=== PATIENT | male | born 1955 | race Caucasian/White ===

== ENCOUNTER → 2017-06-29 16:09 | Outpatient (CLI) | payer MEDICAID, SELFPAY ==
--- NOTE | 2017-06-29 16:16 | RAD_ITS ---
STUDY: X-RAY - RIGHT HAND REASON FOR EXAM: Male, 61 years old. Pain TECHNIQUE: 3 view(s) of the hand. COMPARISON: None. FINDINGS: Normal radiocarpal articulation. Normal distal radioulnar joint. Normal visualized carpal bones. Normal carpal articulations Normal carpometacarpal articulation of the thumb. Normal second through fifth carpometacarpal joints. Mild degenerative cystic changes at the head of the second and third metacarpi. Normal metacarpophalangeal joint of the thumb. Normal interphalangeal joint of the thumb. Normal proximal and distal phalanges of the thumb. Normal metacarpophalangeal joints of the second through fifth fingers. Normal proximal and distal interphalangeal joints of the second through fifth fingers. Normal phalanges of the second through fifth fingers. Soft tissue swelling of the digits. RAD/Hand Min 3 Views IMPRESSION: No acute bony pathology of the hand. Electronically Signed: Yrn Araiza DO at 23:41 EST Tel [phone], Service support ,
--- NOTE | 2017-06-29 16:16 | RAD_ITS ---
STUDY: X-RAY - LEFT HAND REASON FOR EXAM: Male, 61 years old. Pain TECHNIQUE: 3 view(s) of the hand. COMPARISON: None. FINDINGS: Normal radiocarpal articulation. Normal distal radioulnar joint. Normal visualized carpal bones. Normal carpal articulations Normal carpometacarpal articulation of the thumb. Normal second through fifth carpometacarpal joints. Normal metacarpi. Normal metacarpophalangeal joint of the thumb. Normal interphalangeal joint of the thumb. Normal proximal and distal phalanges of the thumb. Normal metacarpophalangeal joints of the second through fifth fingers. Normal proximal and distal interphalangeal joints of the second through fifth fingers. Normal phalanges of the second through fifth fingers. Mild soft tissue edema of the second and third fingers. RAD/Hand Min 3 Views IMPRESSION: No acute bony pathology of the hand. Electronically Signed: Yrn Araiza DO at 23:14 EST Tel [phone], Service support ,
== END ==
PROVIDERS: Family Provider Family Medicine; PCP Family Medicine; Visit Provider Family Medicine
DX: M79.645 Pain in left finger(s) (principal); M79.644 Pain in right finger(s)
CPT/HCPCS: 73130

== ENCOUNTER → 2017-07-14 10:14 | Outpatient (CLI) | payer MEDICAID, SELFPAY ==
[2017-07-14 12:36] LABS: Absolute Lymphocyte Count 2.12 X10^3/ul (0.83-4.51); Basophil# 0.04 X10^3/uL; Basophil% 0.7 % (0-1); Eosinophil# 0.15 X10^3/uL; Eosinophils% 2.6 % (0-5); Hemoglobin 15.8 g/dl (13.0-16.5); Lymphocyte # 2.12 X10^3/ul (4.0); Lymphocyte % 36.4 % (19-41); Mean Corp Hgb Conc 32.9 g/gl (32-36); Mean Corpuscular Hgb 32.1 pg (27.0-32.0); Mean Corpuscular Volume 97.6 fL (80-94); Mean Platelet Vol. 10.9 fl (6.2-12.0); Monocyte# 0.52 X10^3/uL; Monocyte% 8.9 % (0-10); Neutrophil # 2.98 X10^3/uL (2.7-7.7); Neutrophil % 51.2 % (47-70); Platelet Count 231 K/mm3 (150-450); RBC Distribution Width CV 13.8 % (11.6-14.6); RBC Distribution Width SD 49.1 fl (35.1-43.9); Red Blood Count 4.92 M/mm3 (4.6-6.2); White Blood Count 5.8 K/mm3 (4.4-11.0)
[2017-07-14 12:37] LABS: POSITIVE COUNT NO; POSITIVE DIFFERENTIAL NO; POSITIVE MORPHOLOGY NO
[2017-07-14 12:59] LABS: Vitamin B12 1736 pg/mL (211-911)
[2017-07-14 13:02] LABS: Erythrocyte Sedimentation Rate 13 mm/hr (0-20)
[2017-07-14 13:44] LABS: ALB/GLOB Ratio 0.8 RATIO (0.9-2.4); AST(SGOT) 88 U/L (15-37); Alanine Aminotransfer ALT/SGPT 113 U/L (16-61); Albumin, Serum 3.6 g/dL (3.2-5.0); Alkaline Phosphatase 89 U/L (45-117); Anion Gap 7 (5-15); BUN 10 mg/dL (7-18); BUN/Creat Ratio 9.4 RATIO (10-20); CRP < 2.90 mg/L (0.0-3.0); Calcium,Total 9.1 mg/dL (8.5-10.1); Chloride 99 mmol/L (98-107); Cholesterol 174 mg/dL (200); Creatinine, Serum 1.06 mg/dL (0.70-1.30); EST Glomerular Filtration Rate 75 mL/min (>60); Est Glom Filt Rate - Afr Amer 91 mL/min (>60); Globulin 4.3 g/dL (2.2-4.2); Glucose 74 mg/dL (74-106); High Density Lipoprotein 40 mg/dL; Potassium 3.9 mmol/L (3.5-5.1); Protein, Total 7.9 g/dL (6.4-8.2); Sodium Level 135 mmol/L (136-145); T4 Free Direct 0.17 ng/dL (0.76-1.46); Triglycerides 155 mg/dL; Very Low Density Lipoprotein 31 mg/dL (5-40)
[2017-07-18 08:46] LABS: ANTINUCLEAR ANTIBODIES DIRECT Negative (Negative)
[2017-07-20 10:28] LABS: Anti-Thyroglobulin AB 1553.9 IU/mL (0.0-0.9); Thyroglobulin RIA 6.6 ng/mL (.); Thyroid Peroxidase AB > 600 IU/mL (0-34); Vitamin B1, Thiamine 198.5 nmol/L (66.5-200.0)
== END ==
PROVIDERS: Family Provider Family Medicine; PCP Family Medicine; Visit Provider Family Medicine
DX: J44.9 Chronic obstructive pulmonary disease, unspecified (principal); K21.9 Gastro-esophageal reflux disease without esophagitis; E03.9 Hypothyroidism, unspecified; Z13.220 Encounter for screening for lipoid disorders; G56.03 Carpal tunnel syndrome, bilateral upper limbs; M21.839 Other specified acquired deformities of unspecified forearm
CPT/HCPCS: 80053; 80061; 82607; 82746; 84425; 84432; 84439; 84443; 85025; 85652; 86038; 86140; 86376; 86431; 86800

== ENCOUNTER → 2017-07-28 13:56 | Outpatient (CLI) | payer MEDICAID, SELFPAY ==
[2017-08-03 03:07] LABS: Comment 1a (.)
[2017-08-03 11:57] LABS: HCV log 10 6.617 (.); Hepatitis C Genotype 1a
== END ==
PROVIDERS: Family Provider Family Medicine; PCP Family Medicine; Visit Provider Family Medicine
DX: B18.2 Chronic viral hepatitis C (principal)
CPT/HCPCS: 36415; 87522; 87902

== ENCOUNTER → 2017-09-15 13:35 | Outpatient (CLI) | payer MEDICAID, SELFPAY ==
--- NOTE | 2017-09-15 13:36 | CT_ITS ---
STUDY: CT SOFT TISSUE NECK WITH CONTRAST REASON FOR EXAM: Male, 62 years old. NECK MASS, THROAT IRRITATON. RADIATION DOSAGE (If Supplied By Facility): CTDIvol = ( 16.74 ) mGy, DLP = ( 434.57 ) mGycm TECHNIQUE: The patient was scanned in a multi-detector CT scanner. High resolution transaxial imaging was performed following intravenous administration of 75 ml of Isovue 370 contrast material. Sagittal and coronal images were reconstructed. Individualized dose optimization techniques were used for this CT. COMPARISON: None. FINDINGS: Normal bilateral parotid glands. Normal bilateral chief nurse executive spaces. Normal bilateral parapharyngeal spaces. Normal bilateral carotid spaces. Normal bilateral sublingual and submandibular glands and spaces. Normal visualized nasopharynx. Normal retropharyngeal space. Normal perivertebral space. Normal visualized bilateral faucial tonsils. The visualized tongue, tongue base and oropharynx are normal. The visualized cervical lymph nodes (levels I-) are within normal size limits, and maintain normal morphology. There is no demonstrated solid or cystic mass lesion. There is no abnormal contrast enhancement. Normal epiglottis, bilateral vallecula and hypopharynx. The pre-epiglottic and paraglottic adipose spaces are normal. Normal visualized bilateral piriform sinuses, aryepiglottic folds, vocal cords, and arytenoid-cricoid articulations. Normal subglottic trachea. Normal bilateral lobes of the thyroid gland. Normal visualized pulmonary apices. Normal visualized paranasal sinuses. Normal visualized cervical spine. CT/Soft Tissue Neck WITH Contrast IMPRESSION: Normal enhanced CT examination of the soft tissues of the neck. Electronically Signed: Aaron Croft MD at 9:54 EDT Tel , Service support ,
[2017-09-15 14:01] LABS: CREATININE FINGERSTICK 0.8 mg/dL (0.70-1.30); EGFR FINGERSTICK > 60.0000 mL/min (>60)
== END ==
PROVIDERS: Family Provider Family Medicine; PCP Family Medicine; Visit Provider Family Medicine
DX: J38.7 Other diseases of larynx (principal)
CPT/HCPCS: 70491; Q9967

== ENCOUNTER → 2017-09-16 13:55 | Outpatient (CLI) | payer MEDICAID, SELFPAY ==
--- NOTE | 2017-09-16 13:58 | RAD_ITS ---
STUDY: X-RAY CHEST REASON FOR EXAM: Male, 62 years old. COPD TECHNIQUE: PA and lateral views of the chest. COMPARISON: None. FINDINGS: Normal lung expansion. Peripheral vessel attenuation in the upper lung zones consistent with a component of emphysematous changes. Negative for consolidation, focal atelectasis, pulmonary masses or nodules. Negative for pleural effusion. Normal size heart. Normal mediastinum and talha. Normal visualized pulmonary arteries. Mild elongation of the thoracic aorta. There are diffuse degenerative changes of the visualized thoracic spine. Normal visualized ribs, clavicles, and shoulders. There is no demonstrated abnormality of the visualized soft tissue structures of the upper abdomen. RAD/Chest PA and Lateral IMPRESSION: Upper lung zone vessel attenuation consistent with emphysematous changes. Negative for gross hyperexpansion. Negative for consolidation, atelectasis, pleural effusion, masses or cardiomegaly. Electronically Signed: Berenice Hand MD at 21:59 EDT , Service support ,
[2017-09-16 16:07] LABS: ALB/GLOB Ratio 0.9 RATIO (0.9-2.4); AST(SGOT) 70 U/L (15-37); Alanine Aminotransfer ALT/SGPT 126 U/L (16-61); Albumin, Serum 3.6 g/dL (3.2-5.0); Alkaline Phosphatase 87 U/L (45-117); Anion Gap 7 (5-15); BUN 12 mg/dL (7-18); BUN/Creat Ratio 11.8 RATIO (10-20); Calcium,Total 8.8 mg/dL (8.5-10.1); Chloride 103 mmol/L (98-107); Creatinine, Serum 1.02 mg/dL (0.70-1.30); EST Glomerular Filtration Rate 79 mL/min (>60); Est Glom Filt Rate - Afr Amer 95 mL/min (>60); Globulin 4.2 g/dL (2.2-4.2); Glucose 104 mg/dL (74-106); Protein, Total 7.8 g/dL (6.4-8.2); Sodium Level 138 mmol/L (136-145)
[2017-09-16 16:32] LABS: BNP,B-Type NATRIURETIC PEPTIDE < 2.0 pg/mL (0-100)
== END ==
PROVIDERS: Family Provider Family Medicine; PCP Family Medicine; Visit Provider Family Medicine
DX: J44.9 Chronic obstructive pulmonary disease, unspecified (principal)
CPT/HCPCS: 36415; 71046; 80053; 83880

== ENCOUNTER → 2017-10-20 07:37 | Outpatient (CLI) | payer MEDICAID, SELFPAY ==
--- NOTE | 2017-10-20 10:17 | NEURO ---
NCS and/or EMG Patient Report Ordering Doctor: Lino Ugarte DATE OF SERVICE: 10/20/17 Is a bilateral upper extremity nerve conduction study and a left upper extremity EMG performed on this 62-year-old male with severe arthritis in his hands, as well as hand pain worse on the left for 5 years. He works as a [employer]. He describes difficulty holding items in his left hand. He has no neck pain, and is healthy otherwise without a history of diabetes or alcohol use. Bilateral upper extremity sensory and motor nerve conduction studies are performed. The median motor and sensory distal latencies bilaterally are prolonged, moderate on the right side, severe on the left. The left amplitudes are reduced in the bilateral conduction velocities are reduced. The ulnar motor and sensory and radial sensory responses are normal. Median and ulnar F waves were also obtained, with the left median F wave severely prolonged. Left upper extremity needle electromyography was performed. Muscles evaluated included the first dorsal interosseous, abductor pollicis brevis, brachioradialis, biceps, triceps and deltoid muscles. 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 All other C8 muscles were normal. Impression abnormal electrophysiologic study of the bilateral upper extremities consistent with severe carpal tunnel on the left, moderate on the right.
== END ==
PROVIDERS: Family Provider Family Medicine; PCP Family Medicine; Visit Provider Family Medicine
DX: G56.03 Carpal tunnel syndrome, bilateral upper limbs (principal); R06.02 Shortness of breath
CPT/HCPCS: 95886; 95911

== ENCOUNTER → 2018-03-30 14:49 | Outpatient (CLI) | payer MEDICAID, SELFPAY ==
[2018-03-30 15:40] LABS: Absolute Lymphocyte Count 1.75 X10^3/ul (0.83-4.51); Absolute Neutrophil Count 3.7 X10^3/uL (2.0-7.7); Basophil# 0.03 X10^3/uL; Basophil% 0.5 % (0-1); Eosinophils% 1.6 % (0-5); Hematocrit 43.5 % (40-54); Hemoglobin 14.8 g/dl (13.0-16.5); Lymphocyte # 1.75 X10^3/ul (4.0); Mean Platelet Vol. 10.5 fl (6.2-12.0); Monocyte# 0.67 X10^3/uL; Monocyte% 10.7 % (0-10); Neutrophil # 3.68 X10^3/uL (2.7-7.7); Platelet Count 211 K/mm3 (150-450); RBC Distribution Width CV 12.6 % (11.6-14.6); RBC Distribution Width SD 42.5 fl (35.1-43.9); Red Blood Count 4.63 M/mm3 (4.6-6.2); White Blood Count 6.2 K/mm3 (4.4-11.0)
[2018-03-30 15:43] LABS: POSITIVE COUNT NO; POSITIVE DIFFERENTIAL NO; POSITIVE MORPHOLOGY NO
[2018-03-30 16:18] LABS: ALB/GLOB Ratio 0.9 RATIO (0.9-2.4); AST(SGOT) 54 U/L (15-37); Alanine Aminotransfer ALT/SGPT 73 U/L (16-61); Albumin, Serum 3.5 g/dL (3.2-5.0); Alkaline Phosphatase 80 U/L (45-117); Anion Gap 7 (5-15); BUN 12 mg/dL (7-18); BUN/Creat Ratio 12.8 RATIO (10-20); Calcium,Total 8.8 mg/dL (8.5-10.1); Chloride 103 mmol/L (98-107); Creatinine, Serum 0.94 mg/dL (0.70-1.30); EST Glomerular Filtration Rate 87 mL/min (>60); Est Glom Filt Rate - Afr Amer 105 mL/min (>60); Globulin 3.8 g/dL (2.2-4.2); Glucose 92 mg/dL (74-106); Protein, Total 7.3 g/dL (6.4-8.2); Sodium Level 137 mmol/L (136-145); T4 Free Direct 0.48 ng/dL (0.76-1.46)
== END ==
PROVIDERS: Family Provider Family Medicine; PCP Family Medicine; Visit Provider Family Medicine
DX: J44.9 Chronic obstructive pulmonary disease, unspecified (principal); B18.2 Chronic viral hepatitis C; E03.8 Other specified hypothyroidism
CPT/HCPCS: 36415; 80053; 84439; 84443; 85025

== ENCOUNTER 2018-09-21 09:26 | Day surgery (SDC) | payer MEDICAID, SELFPAY ==
[2018-09-13 12:45] VITALS: BMI 27.5
[2018-09-21] VITALS (8 sets, daily range): BP systolic 90–138; BP diastolic 67–84; PULSE 49–66; RESP 16–18; TEMP 36.1–36.3; O2SAT 96–100; BMI 25.8
--- NOTE | 2018-09-21 13:09 | DCINST_ITS ---
Discharge Diet: No Restrictions - leave dressing on until seen in office in 2 weeks with jose whitehead, call with increased pain, numbness, or if other issues arise, keep dressing clean and dry, call with concerns Discharge Activity: May Not Drive May shower in (days): 1 Ice area for (Minutes): 20 - Every hour while awake. Weight Bearing Status: Weight bearing as tolerated Keep extremity elevated above heart level: Operative Extremity Call your doctor if your incision/area has: Continuous Slow Oozing, Sudden Increased Bleeding, Increased Pain/ Swelling, Increased Redness, Foul Smelling Discharge Call your doctor if you observe: Fever of 101 or Higher, Coldness, Increased Pain, Numbness or Tingling, Change in Color, Calf discomfort Allergies/Adverse Reactions: Allergies No Known Allergies Allergy (Verified 09/06/18 14:02) Medications to take at Discharge albuterol sulfate HFA 90 mcg/actuation aerosol inhaler 2 puff INHALATION Q4H PRN 01/13/18 fluticasone furoate 100 mcg-vilanterol 25 mcg/dose inhalation powder 1 inh INHALATION DAILY 01/13/18 fluticasone propionate 50 mcg/actuation nasal spray,suspension 1 spray INTR ANASAL DAILY 01/13/18 levothyroxine 125 mcg capsule 125 mcg PO DAILY 01/13/18 omeprazole 40 mg capsule,delayed release 40 mg PO DAILY 01/13/18 tiotropium bromide 2.5 mcg/actuation mist for inhalation 2 puff INHALATION DAILY 01/13/18 trazodone 50 mg tablet 50 mg PO QHS PRN 07/18/18 divalproex 500 mg tablet,delayed release 500 mg PO QHS tab 09/06/18 Aspirin [Aspir-Low] 81 mg PO DAILY 09/16/18 Budesonide/Formoterol 160/4.5 [Symbicort 160/4.5 Mcg Inhaler (SP)] 2 puff INHALATION BID 09/16/18 Primary Care Physician: Lino Ugarte MD [Primary Care Provider] - Test Results: Test results from this visit will be discussed in further detail at your follow- up appointment, if applicable. Please Follow Up With: Mavis Landaverde, - [phone]
--- NOTE | 2018-09-21 13:09 | PCM.OPRPT ---
Report of Operation Date of Procedure: 09/21/18 Pre-Operative Diagnosis: bilateral carpal tunnel syndrome Post-Operative Diagnosis: same Surgery/Procedure Performed:: left carpal tunnel release, right carpal tunnel injection medical office manager: Gm Atkinson Type of Anesthesia:: BlockJulieth Anesthesiologist: Sky Guerrero Fluids Replaced: 400 cc lr Description of Procedure: Preoperative note Patient is a 63 yo male patient with nerve conduction study confirming carpal tunnel syndrome. Patient failed conservative treatment for bilateral carpal tunnel elected proceed with left carpal tunnel release right carpal tunnel injection. Risks benefits and alternatives surgery discussed with patient. Risks including but not limited to blood loss, blood clot, infection, neurovascular injury, failure procedure, loss of life and loss of limb. Patient is aware like proceed with left carpal tunnel release. Operative note Patient seen and examined preoperative holding area. Left hand was marked. History and physical and consent reviewed. Patient was brought to the operating room placed supine on the operating table. Sign in, anesthesia, antibiotics were administered. Left upper extremity was prepped and draped after [place] block was initiated. All bony prominences well-padded SCDs placed on bilateral lower extremities. We marked out our incisions for our carpal tunnel release at the intersection of Gladys's line in the fourth ray flexed. We extended about a centimeter and a half. Timeout was performed. We then checked ensure that the Julieth block was working with pickups which it was. We then used a 15 blade to make a skin incision. We then dissected down tenotomy syllable of the transverse carpal ligament. We then used a new 15 blade cut through the transverse carpal ligament down to the level of the median nerve. We then further released the median nerve the combination of the 15 blade and tenotomies. The nerve was grayish in color and adherent to the transverse carpal ligament volarly. We released the transverse carpal ligament distally to the fat pad and then proximally under standard technique. We then palpated to ensure that we released all of the transverse carpal ligament which we did. We irrigated the incision with copious amounts of sterile saline. All bleeders were coagulated. The incision was closed with interrupted 4-0 nylon stitches. Tourniquet was deflated for total working time of 10 minutes. Patient tolerated procedure well there were no complications. We then in standard technique using sterile technique injected the right carpal tunnel with 1 cc bupivacaine 1/2 cc of Kenalog 40. Patient transferred to recovery room in stable condition. Postoperative note Leave dressing clean dry and intact Follow-up in 2 weeks Call with concerns This note was generated with [employer] dictation software. It may contain incorrect words, spelling, and punctuation that were not noted in checking the note before signing.
[2018-09-21] MEDS: Cefazolin 2 GM in 0.9% Normal Saline 100 ML IV (13:26)
[2018-09-21] MEDS: Ropivacaine 0.5% 30 ML Vial (14:03)
[2018-09-21] MEDS: Triamcinolone Acetonide 40 MG/ML Vial (14:03)
[2018-09-21] MEDS: Mupirocin Ointment 22gm Tube 1 APPLIC (14:04)
[2018-09-21] MEDS: HYDROcodone Bitartrate/Apap 5/325 Tablet PO (15:07)
== END 2018-09-21 15:40 | disposition home or self-care (01) ==
LOC: SDC 09:27 → AC 09:28
PROVIDERS: Family Provider Family Medicine; PCP Family Medicine; Referring Provider Orthopaedic Surgery; Visit Provider Orthopaedic Surgery
PROC: (CPT 64721; principal; 2018-09-21 10:45)
DX: G56.03 Carpal tunnel syndrome, bilateral upper limbs (principal); K21.9 Gastro-esophageal reflux disease without esophagitis; F32.9 Major depressive disorder, single episode, unspecified; F41.9 Anxiety disorder, unspecified; J44.9 Chronic obstructive pulmonary disease, unspecified; E03.9 Hypothyroidism, unspecified; E06.3 Autoimmune thyroiditis; B18.2 Chronic viral hepatitis C; F17.200 Nicotine dependence, unspecified, uncomplicated; Z79.82 Long term (current) use of aspirin; Z79.899 Other long term (current) drug therapy
CPT/HCPCS: 20526; 64721; J7120

== ENCOUNTER 2019-02-04 19:50 | Emergency (ER) | payer MEDICAID, SELFPAY ==
[2018-09-21 09:58] VITALS: BMI 25.8
[2019-02-04 19:50] VITALS: BP 153/92; PULSE 90; RESP 18; TEMP 36.4; O2SAT 97; BMI 26.3
--- NOTE | 2019-02-04 20:37 | ED.VISSUMM ---
- ER Visit Summary Date of Service: 02/04/19 Chief Complaint: Right lower leg laceration secondary to her grinding wheel History of Present Illness: The patient is a 63 M history of COPD and hypothyroidism. Patient states she was using a grinding wheel at home it came off struck him in his right lower leg causing a laceration. This occurred within the last hour. No other injuries. Able to walk. States his tetanus is up-to-date in the last 5 years or so. Physical Examination: Vital signs are stable afebrile. HEENT exam unremarkable. Lungs few scattered wheezes consistent with a COPD. No distress. Heart regular rhythm no murmur. Patient moving all 4 extremities. Neurovascularly intact. His right mid lower leg over the tibia there is a significant 4 inch laceration that may have bone involvement. Distally the right ankle, foot are neurovascular intact with DP pulse. Normal touch sensation. Normal motor strength and range of motion. Test Results: Right tib-fib x-ray shows no acute abnormality. No fracture. The radiologist questioned the foreign body to think it was soft tissue swelling and bandages. Emergency Department Course and Treatment: Laceration repair right lower leg of 7 cm. Let applied to the wound. Cleaned using Shur-Clens, copiously irrigated wash and explored. Locally anesthetized with lidocaine. Closed using 4-0 Ethilon simple interrupted sutures. 7 sutures were placed. Proper hemostasis wound closure obtained. Patient was instructed on wound care and return if any signs of infection. Patient tolerated procedure well. She is I did explore the entire wound and felt no signs of foreign body. There were tiny bubbles of sand from the grinding wheel in the tissue I does make there is out as I could. Will be placed on an antibiotic to try to prevent infection. I discussed this with the patient. Treatment Plan: Ice and elevate the wound. Suture removal 10 days. Keflex 500 3 times daily for 5 days. Return for any signs of infection. Disposition: Discharge Impression: Acute right lower leg laceration with ER repair 7 cm This note was generated with [employer] dictation software. It may contain incorrect words, spelling, and punctuation that were not noted in review of the chart prior to signing ED Disposition - Plan for ED Patient: Referrals: Elis Hernandes, EQUAL OPPORTUNITY DIRECTOR-C [Primary Care Provider] -
[2019-02-04] MEDS: Lidocaine/Epi/Tetracaine 50 ML 1 APPLIC TOPICAL (21:19)
--- NOTE | 2019-02-04 21:25 | RAD_ITS ---
STUDY: X-RAY - RIGHT TIBIA AND FIBULA REASON FOR EXAM: Male, 63 years old. Laceration right anterior mid lower leg. TECHNIQUE: 2 view(s) of the tibia and fibula were obtained. COMPARISON: None. FINDINGS: No fracture or dislocation. Visualized joint spaces are well-maintained. Bandage or packing projected over the anterior hernandez. Radiodensities in the anterior soft tissues measuring up to 4 mm, small foreign bodies versus topical iodine. RAD/Tibia & Fibula 2 Views IMPRESSION: 1. No osseous abnormality. 2. Small foreign bodies versus topical iodine in the anterior soft tissues. Has iodine been applied to this region? Electronically Signed: Janice Bustamante MD at 22:00 EDT Tel , Service support ,
--- NOTE | 2019-02-04 23:02 | ED.DEP ---
ED Disposition - Plan for ED Patient: Disposition: Home or Assisted Living Instructions: LACERATION, Extrem (Suture, Staple or Tape) Prescriptions: Cephalexin [Keflex] 500 mg PO Q8 #15 cap Prescription Printed Referrals: Elis Hernandes, MECHANICAL ENGINEERING SPECIALIST-C [Primary Care Provider] - 10 Day for suture removal Additional Instructions: Keep wound clean and dry. May shower but then dried off well. Apply antibiotic ointment daily. Watch for any signs of infection such as redness, pus, fever or streaks. Is seen return. Ice and elevate the wound to decrease pain and swelling. Tylenol Motrin for pain. Suture removal in 10 days. Keflex for 5 days a child with any type of infection since it was a deep dirty wound.
[2019-02-04 23:14] VITALS: BP 153/95; PULSE 76; RESP 20; O2SAT 97
== END 2019-02-04 23:15 | disposition home or self-care (01) ==
PROVIDERS: Emergency Provider Emergency Medicine; Family Provider Nurse Practitioner; PCP Nurse Practitioner
DX: S81.811A Laceration without foreign body, right lower leg, initial encounter (principal); W22.8XXA Striking against or struck by other objects, initial encounter; Y93.89 Activity, other specified; Y92.009 Unspecified place in unspecified non-institutional (private) residence as the place of occurrence of the external cause; J44.9 Chronic obstructive pulmonary disease, unspecified; E03.9 Hypothyroidism, unspecified; Z72.0 Tobacco use
CPT/HCPCS: 12002; 73590; 99283

== ENCOUNTER 2019-02-14 23:25 | Emergency (ER) | payer MEDICAID, SELFPAY ==
[2019-02-14 23:26] VITALS: BP 158/87; PULSE 94; RESP 18; TEMP 36.7; O2SAT 95; BMI 25.3
--- NOTE | 2019-02-15 01:25 | ED.VIS.GEN ---
History of Present Illness Chief Complaint: Wound Check Narrative: This patient is a 63-year-old male who presents for a wound check. He had a laceration 10 days ago from a cutting wheel on a contour grinder. This was seen in the emergency department and sutured. He is followed up with his primary care physician today and had his sutures removed. Initially the wound was held intact but after he began walking it pulled apart. He is noticed a small amount of drainage from the wound but is currently on antibiotics, Keflex and Bactrim. No systemic symptoms. No fevers. He is not diabetic. Past Medical History - Allergies and Home Meds Allergies/Adverse Reactions: Allergies No Known Allergies Allergy (Verified 02/14/19 23:26) Primary Care Physician: Elis Hernandes NP-C [Primary Care Provider] - Past Medical History: - - GERD, hypothyroidism Smoking Status: Current every day smoker Review of Systems All systems negative except as indicated General: Denies: Fever Cardiovascular: Denies: Chest pain Respiratory: Denies: Dyspnea Gastrointestinal: Denies: Vomiting Skin: Reports: Wounds Physical Exam Vital Signs/Narrative: Vital Signs Temp Pulse Resp BP Pulse Ox 02/14/19 23:26 98.1 F 94 18 158/87 H 95 Inital Vital Signs reviewed: Yes General: Well nourished, Well developed Head: Normocephalic Eyes: EOMI ENT: Moist mucous membranes Neck: Supple Cardiovascular: Regular rate, Regular rhythm Respiratory: No distress Skin: - - Patient has an open wound of the right lower extremity, dehiscence of the laceration repair. There is slight wound edge erythema but no drainage no odor Neurological: Alert Psychological: Normal affect Diagnostic/Tx/Re-eval - Medical Decision Making Patient's wound was cleansed with sterile saline, tincture of benzoin applied and Steri-Strips. Patient will be referred to the wound clinic. He was advised to continue his current oral antibiotics. ED Disposition - Plan for ED Patient: Disposition: Home or Assisted Living Diagnosis: Wound dehiscence Referrals: Elis Hernandes NP-C [Primary Care Provider] - Clinic,Wound [None] - Additional Instructions: You were seen today for wound dehiscence. This means that your wound pulled open again. Steri-Strips were applied. Keep the wound clean and dry and covered. Follow-up with the wound clinic. Continue your current antibiotics but return for any new or worsening symptoms.
[2019-02-15 01:39] VITALS: BP 135/92; PULSE 82; O2SAT 96
--- NOTE | 2019-02-15 01:39 | ED.RN ---
Telfa applied along with a cling wrap around his left lower leg laceration area prior to discharge.
[2019-02-15 01:40] VITALS: BP 135/92; PULSE 82; O2SAT 96
== END 2019-02-15 01:41 | disposition home or self-care (01) ==
PROVIDERS: Emergency Provider Emergency Medicine; Family Provider Nurse Practitioner; PCP Nurse Practitioner
DX: T81.33XA Disruption of traumatic injury wound repair, initial encounter (principal); E03.9 Hypothyroidism, unspecified; K21.9 Gastro-esophageal reflux disease without esophagitis; F17.200 Nicotine dependence, unspecified, uncomplicated; Z79.82 Long term (current) use of aspirin; Z79.899 Other long term (current) drug therapy
CPT/HCPCS: 99282

== ENCOUNTER 2020-08-14 01:30 | Emergency (ER) | payer MEDICAID, SELFPAY ==
[2020-08-14 01:31] VITALS: PULSE 86; RESP 16; TEMP 35.9; O2SAT 99; BMI 27.8
--- NOTE | 2020-08-14 01:51 | CT_ITS ---
STUDY: CT ABDOMEN AND PELVIS WITHOUT CONTRAST REASON FOR EXAM: Male, 64 years old. Kidney Stone RADIATION DOSAGE (If Supplied By Facility): CTDIvol = ( 7.15 ) mGy, DLP = ( 378.85 ) mGycm TECHNIQUE: Transaxial images were obtained from the dome of the diaphragm to the symphysis pubis without oral contrast, and without intravenous contrast. Sagittal and coronal images were reconstructed. Individualized dose optimization techniques were used for this CT. COMPARISON: None. FINDINGS: Bilateral posterior dependent atelectasis otherwise normal lung bases. The visualized portions of the heart are within normal limits. Normal liver. Normal gallbladder and extrahepatic biliary system. Normal spleen. Normal pancreas. Normal bilateral adrenal glands. Normal right kidney. Normal left kidney. Decompressed stomach with possible minimal hiatal hernia. Normal small intestine. Normal colon. The appendix is visualized and appears normal. There is mild atherosclerotic calcification of the abdominal aorta, without a demonstrated aneurysm. Normal inferior vena cava. Normal retroperitoneum. Thickening of urinary bladder wall raising the concern of cystitis. Normal visualized prostate gland. Normal abdominal wall. There are diffuse degenerative changes of the visualized lumbar spine. CT/Abdomen/Pelvis without Cont IMPRESSION: Thickening of the wall of the urinary bladder raising the concern for cystitis. Correlation with urinalysis recommended. Unremarkable abdominal viscera. Possible minimal hiatal hernia. Electronically Signed: Kaylene Mayer MD at 2:51 EDT , Service support ,
--- NOTE | 2020-08-14 01:52 | ED.DCSUM_ITS ---
History of Present Illness Chief Complaint: Flank Pain Informant: Patient Narrative: She stated he has had intermittent left-sided flank and back pain for last 3 weeks. No history of AAA or kidney stone. Denies any blood in his urine or urinary symptoms. Sometimes this movement related. Sometimes is not. No home treatment. Current severity is moderate. Called his doctor who told him to come in for evaluation. No fevers or chills - Past Medical History (1) Chest pain Status: Acute (2) COPD (chronic obstructive pulmonary disease) Status: Chronic (3) Carpal tunnel syndrome on both sides Status: Chronic (4) GERD (gastroesophageal reflux disease) Status: Chronic (5) Johnathan's disease Status: Chronic (6) Hepatitis C Status: Chronic (7) Hypothyroid Status: Chronic (8) Suspected sleep apnea Status: Chronic (9) Tobacco abuse Status: Chronic Past Medical History - Allergies and Home Meds Allergies/Adverse Reactions: Allergies No Known Allergies Allergy (Verified 08/14/20 01:34) Primary Care Physician: Elis Hernandes DEALER SALES MANAGER, DEALER SALES MANAGER-C [Primary Care Provider] - Prior records reviewed: Yes Past Medical History: - Surgical History: - - Reviewed Smoking Status: Current every day smoker Drugs: None Review of Systems General: Denies: Chills, Fever, Sweats Eyes: Denies: Visual changes - bilaterally, Diplopia ENT: Denies: Rhinorrhea, Sore throat Cardiovascular: Denies: Chest pain, Palpitations Respiratory: Denies: Dyspnea, Cough, Dyspnea on exertion Gastrointestinal: Denies: Abdominal pain, Nausea, Vomiting, Diarrhea, Melena, Hematochezia Genitourinary: Denies: Dysuria, Hematuria, Frequency Musculoskeletal: Reports: Back pain. Denies: Extremity Pain Skin: Denies: Rash, Wounds Neurological: Denies: Headache, Weakness, Numbness Physical Exam Vital Signs/Narrative: Vital Signs Temp Pulse Resp Pulse Ox 08/14/20 01:31 96.6 F L 86 16 99 General: Well nourished, Well developed, No Acute Distress Head: Normocephalic, Atraumatic Eyes: Perrl, EOMI ENT: Moist mucous membranes, No rhinorrhea Neck: Supple, Nontender Cardiovascular: Regular rate, Regular rhythm, No murmurs Respiratory: No distress, CTA bilaterally, Chest nontender Abdomen: Soft, Nontender, Nondistended, Normal bowel sounds Back: Nontender, Normal Inspection, - - Tender to palpation left lower lumbar paraspinals and left flank mild decreased range of motion secondary pain. Extremities: Nontender, No edema Skin: Normal color, No rash Neurological: Alert, Oriented x3, Cranial nerves II-XII grossly intact, Normal Strength, Normal Sensation Psychological: Normal affect, Normal Mood Diagnostic/Tx/Re-eval - Medical Decision Making Patient given a dose of Toradol and IV fluids. Lab work and CT of the pelvis obtained.. Lab work shows a BMP that is normal. Urinalysis negative. CT and pelvis shows nothing acute. Mild thickening of the bladder wall only. No evidence of AAA or kidney stone. At this time I feel the patient can be discharged. I feel this is musculoskeletal related back pain. He will rest and ice take anti-inflammatories follow-up as an outpatient. Patient is in agreement ED Disposition - Plan for ED Patient: Disposition: Home or Assisted Living Diagnosis: Back pain, lumbosacral Instructions: ED Back Pain (Acute or Chronic) Referrals: Elis Hernandes DEALER SALES MANAGER, DEALER SALES MANAGER-C [Primary Care Provider] -
[2020-08-14 02:07] LABS: Anion Gap 7 (5-15); BUN 18 mg/dL (7-18); BUN/Creat Ratio 14.4 RATIO (10-20); Calcium,Total 8.9 mg/dL (8.5-10.1); Chloride 103 mmol/L (98-107); Creatinine, Serum 1.25 mg/dL (0.70-1.30); EST Glomerular Filtration Rate 62 mL/min (>60); Est Glom Filt Rate - Afr Amer 75 mL/min (>60); Estimated Creatinine Clearance 63.59 ml/min; Glucose 121 mg/dL (74-106); Potassium 3.7 mmol/L (3.5-5.1); Sodium Level 138 mmol/L (136-145)
[2020-08-14 02:22] LABS: Bacteria 0 SEEN /hpf (None Seen); Mucous, Urine 0 SEEN /hpf (<or=2+); Red Blood Cells-Urine 0 SEEN /hpf (0-5); Squamous Epithelial Cells - UA 0 SEEN /hpf (0-5); White Blood Cells 0 SEEN /hpf (0-5)
[2020-08-14 02:24] LABS: Color, Urine Yellow (Yellow); Glucose, Dipstick Normal (Normal); Ketone-Dipstick Negative (Negative); Leukocyte Esterase-Dipstick Negative /ul (Negative); Nitrite-Dipstick Negative (Negative); Occult Blood-Urine Negative /ul (Negative); Protein-Dipstick 15 mg/dl (Negative); Specific Gravity, Urine 1.015 (1.002-1.030); Urine Bilirubin Dipstick Negative (Negative); Urine Clarity Clear (Clear); Urine Urobilinogen Normal (Normal)
[2020-08-14] MEDS: Ketorolac 15 MG/ML Vial IV (02:50)
[2020-08-14] MEDS: 0.9% Normal Saline 1,000 ML 250 ML IV (02:53)
[2020-08-14 03:27] VITALS: BP 146/78; PULSE 60; RESP 18; O2SAT 96
== END 2020-08-14 03:31 | disposition home or self-care (01) ==
PROVIDERS: Emergency Provider Emergency Medicine; PCP Nurse Practitioner
DX: M54.5 Low back pain (principal); J44.9 Chronic obstructive pulmonary disease, unspecified; E06.3 Autoimmune thyroiditis; B18.2 Chronic viral hepatitis C; F17.200 Nicotine dependence, unspecified, uncomplicated; Z79.82 Long term (current) use of aspirin; Z79.899 Other long term (current) drug therapy
CPT/HCPCS: 74176; 80048; 81001; 96361; 96374; 99283; J7030; A4216

== ENCOUNTER 2023-06-07 20:24 | Emergency (ER) | payer MEDICARE, SELFPAY ==
[2023-06-07 20:24] VITALS: BP 195/112; PULSE 82; RESP 22; TEMP 35.4; O2SAT 96; BMI 29.9
[2023-06-07 22:01] VITALS: BP 185/55; PULSE 85; RESP 20; TEMP 36.9; O2SAT 98
--- NOTE | 2023-06-07 22:20 | RAD_ITS ---
STUDY: X-RAY - RIGHT TIBIA AND FIBULA REASON FOR EXAM: Male, 67 years old. ? osteo TECHNIQUE: 2 view(s) of the tibia and fibula were obtained. COMPARISON: None. FINDINGS: Normal visualized tibia. Normal visualized fibula. There is no demonstrated acute fracture. Mild degenerative disease at the proximal tibiofibular articulation. Mild narrowing of the medial joint compartment at the level of the knee. Diffuse soft tissue swelling through the calf and ankle. RAD/Tibia & Fibula 2 Views IMPRESSION: Diffuse soft tissue swelling as described with no acute fracture or subluxation. No distinct bony lesion seen. Note to be made that osteomyelitis cannot be excluded based on negative plane film findings. If this presents a persistent clinical concern, recommend dedicated bone scan or MRI of the region of interest. Electronically Signed: Kaylene Mayer MD at 22:50 EST ,
--- NOTE | 2023-06-07 22:20 | RAD_ITS ---
STUDY: X-RAY - RIGHT FOOT CLINICAL: Male, 67 years old. ? osteo TECHNIQUE: 3 view(s) of the foot. COMPARISON: None. FINDINGS: Possible minimal enthesophytosis at the Achilles tendon insertion site. Otherwise normal talus, calcaneus, and tarsal bones. Normal visualized subtalar, talonavicular, calcaneocuboid, tarsal and tarsometatarsal articulations. Normal metatarsi. There is degenerative arthrosis of the metatarsophalangeal joint of the hallux . Normal tibial and fibular sesamoid bones. Normal interphalangeal joint of the great toe. Normal phalanges of the great toe. Normal second through fifth metatarsophalangeal joints. Normal interphalangeal joints and phalanges of the lesser toes. Soft tissue swelling along the dorsum of the foot at the level of the metacarpals and ankle region. There is no demonstrated fracture. RAD/Foot min 3 Views IMPRESSION: Soft tissue swelling along the dorsum of the foot and ankle region. 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 No acute fracture or subluxation. No distinct bony lesion. Note to be made that osteomyelitis cannot be excluded based on negative plane film findings. If this represents a clinical concern, recommend follow-up with MRI or bone scan of the region of interest. Electronically Signed: Kaylene Mayer MD at 22:49 EST ,
--- OUTSIDE RECORDS SUMMARY | 2023-06-07 22:21 | XMS RPT_ITS | CCD ---
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 as instructed twice daily. gabapentin (NEURONTIN) 300 mg capsule Take 1 capsule by mouth daily at bedtime for 180 days. hydrOXYchloroQUINE (PLAQUENIL) 200 mg tablet Take 1 tablet by mouth twice daily. levothyroxine (SYNTHROID) 125 mcg tablet Take 1 tablet by mouth once daily. meloxicam (MOBIC) 15 mg tablet Take 1 tablet by mouth once daily. With food. omeprazole (PRILOSEC) 40 mg capsule Take 1 capsule by mouth once daily. tiotropium bromide (SPIRIVA RESPIMAT) 2.5 mcg/actuation inhaler Inhale 2 Puffs as instructed once daily. triamcinolone (KENALOG) 0.025 % cream Apply 1 application to affected area twice daily. BABY ASPIRIN ORAL Take by mouth. PHYSICAL EXAM: Vital Signs: BP (P) 152/96 (BP Site: Left Arm, BP Position: Sitting, BP Cuff Size: Large Adult) Pulse (P) 78 Wt (P) 94.3 kg (208 lb) BMI (P) 29.01 kg/m Current volume status is euvolemic. General: Alert and oriented x 3, in no distress. Cooperative. HEENT: Moist oral mucous membranes. Skin: No erythema, rash, petechiae or scars. Neck: Supple, No LAD or masses. Non-palpable thyroid. Heart: PMI not displaced. RRR. Normal S1, S2. No murmurs, rubs or gallops. No carotid bruits, no JVD. Lung/Chest: Clear to auscultation bilaterally. No crackles, wheezes or rhonchi. Abdomen: No distention, BS (+). Soft, no tenderness or rebound tenderness. No masses or hepatosplenomegaly. Extremities: normal pulses. No clubbing, cyanosis or edema. Neuro: No focal deficits. Gait normal. PRE-OPERATIVE TESTING: CBC: TBD CMP: TBD EKG: TBD, done by cardiology. Coags: NA. BNP, ECHO: NA PFTs: NA CXR: NA ASSESSMENT: Preoperative examination (primary encounter diagnosis) Primary hypertension Chronic obstructive pulmonary disease, unspecified copd type (hcc) Based on the findings noted above Alexandra Chacon is consider to be at intermediate- risk for the above procedure. This procedure is not contraindicated given the following instructions are followed: Per ACS NSQIP risk calculator, patient is above average risk for most outcomes except he is average risk for DVT, and below average risk for urinary tract infection. He had been cleared from a cardiac standpoint. SUMMARY OF INSTRUCTIONS: Further testing: None. Medication modifications: Hold . Aspirin and meloxicam. Start Pre-operative: Bronchodilators given High Pulmonary Risk. Referral: None. Incentive Spirometry perioperatively. Early ambulation encouraged as tolerated. DVT prophylaxis ordered by surgical team. SIGNATURE: Abdi Verdugo MD documented in this encounter [facility] 08-03-2022 Note HNO ID: [id number] Author: Alex Kelly MD Service: ? Author Type: Physician Type: Progress Notes Filed: 08/03/2022 12:18 PM Note Text: Chief Complaint: Patient presents with: CARD New Patient Consult: FUSELAGE FRAMER FOR CARDIAC CLEARANCE Alexandra Chacon is a 66 year old male referred to me by primary care provider for. Pre-op Cardiovascular risk stratification prior to undergoing laparoscopic cholecystectomy. He presents with history of hypertension and chronic tobacco abuse. He is 66-year-old male, no prior history of coronary artery disease/CVA/TIA or diabetes mellitus. No history of any premature coronary disease in the family. 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 Denies any resting or exertional angina. Denies any syncope. Denies any weakness. He has load and unload the truck himself and does his work without any discomfort. He can comfortably sprint 2-3 flight of stairs without any discomfort. PAST MEDICAL HISTORY Diagnosis Date Acute cholecystitis with acute cholangitis signed out AMA 02/23/2022 Acute pancreatitis, unspecified complication status, unspecified pancreatitis type 04/30/2022 Chronic obstructive pulmonary disease (HCC) 11/11/2018 Chronic rhinitis 11/11/2018 Depressive disorder 11/11/2018 [facility] Gastroesophageal reflux disease without esophagitis 11/11/2018 Hepatitis C virus carrier state (HCC) 05/15/2019 HTN (hypertension) Hypothyroidism, unspecified 11/11/2018 Mass of left kidney enhancing on CT 02/23/2022 Restless legs 12/08/2021 Tubular adenoma of colon 09/05/2019 PAST SURGICAL HISTORY Procedure Laterality Date CARPAL TUNNEL Left 08/2018 COLSC FLX W/RMVL OF TUMOR POLYP LESION SNARE TQ 09/01/2019 EGD 09/01/2019 FACIAL RECONSTRUCTION SURGERY HX 2000 15 to 20 years ago FAMILY HISTORY Problem Relation Age of Onset Thyroid Sister other (murmur) Sister Social History Tobacco Use Smoking status: Former Packs/day: 1.00 Years: 40.00 Pack years: 40.00 Types: Cigarettes Quit date: 07/06/2022 Years since quittin.0 Smokeless tobacco: Former Types: Chew Tobacco comments: chews 2-3 cigarettes a day Vaping Use Vaping Use: Never used Substance Use Topics Alcohol use: Not Currently Comment: former alcoholic-quit 6 years ago Drug use: Not Currently Current Outpatient Medications Medication Sig MULTI-VITAMIN ORAL Take by mouth. albuterol HFA (PROVENTIL HFA, VENTOLIN HFA) 90 mcg/actuation inhaler Inhale 2 Puffs as instructed every 6 hours as needed for wheezing/shortness of breath. fluticasone (FLONASE) 50 mcg/actuation nasal spray Use 2 Sprays in each nostril once daily. fluticasone propion-salmeterol (AIRDUO RESPICLICK) 232-14 mcg/actuation Inhale 1 Puff as instructed twice daily. gabapentin (NEURONTIN) 300 mg capsule Take 1 capsule by mouth daily at bedtime for 180 days. hydrOXYchloroQUINE (PLAQUENIL) 200 mg tablet Take 1 tablet by mouth twice daily. levothyroxine (SYNTHROID) 125 mcg tablet Take 1 tablet by mouth once daily. meloxicam (MOBIC) 15 mg tablet Take 1 tablet by mouth once daily. With food. omeprazole (PRILOSEC) 40 mg capsule Take 1 capsule by mouth once daily. tiotropium bromide (SPIRIVA RESPIMAT) 2.5 mcg/actuation inhaler Inhale 2 Puffs as instructed once daily. triamcinolone (KENALOG) 0.025 % cream Apply 1 application to affected area twice daily. BABY ASPIRIN ORAL Take by mouth. losartan (COZAAR) 50 mg tablet Take 1 tablet by mouth twice daily. nicotine (NICODERM) 14 mg/24 hr Apply 1 Patch as directed every 24 hours. (Patient not taking: Reported on 08/03/2022) No current facility-administered medications for this visit. ALLERGIES No Known Allergies Cardiac Testing ECG: EKG in office today demonstrated sinus rhythm without any ST or T wave abnormalities. ROS: GENERAL: No weight loss, malaise or fevers. HEENT: Negative for frequent or significant headaches, No changes in hearing or vision, no nose bleeds or other nasal problems NECK: Negative for goiter, pain or significant neck swelling RESPIRATORY: See HPI CARDIOVASCULAR: See H GI: No nausea, vomiting, or diarrhea MUSCULOSKELETAL: Negative for joint pain or swelling, back pain or muscle pain SKIN: Negative for lesions, rash, and itching. ENDOCRINE: Negative for cold or heat intolerance, polyuria or polydipsia. NEURO: No history of headaches, syncope, paralysis, seizures or tremors BP 165/95 (BP Site: Right Arm, BP Position: Sitting, BP Cuff Size: Large Adult) Pulse 79 Resp 18 Ht 5' 11 (1.803 m) Wt 202 lb (91.6 kg) SpO2 96% BMI 28.17 kg/m? Physical exam: General Appearance: Well appearing, alert, in no acute distress, well-hydrated, well nourished.. Skin: Skin color, texture, turgor normal, no suspicious rashes or lesions. Head: Normocephalic, no masses, lesions, tenderness or abnormalities. Eyes: Anicteric sclera. Pupils are equally r (more content not included)... [facility] 08-03-2022 History of Present illness Narrative Chief Complaint: Patient presents with: CARD New Patient Consult: FUSELAGE FRAMER FOR CARDIAC CLEARANCE Alexandra Chacon is a 66 year old male referred to me by primary care provider for. Pre-op Cardiovascular risk stratification prior to undergoing laparoscopic cholecystectomy. He presents with history of hypertension and chronic tobacco abuse. He is 66-year-old male, no prior history of coronary artery disease/CVA/TIA or diabetes mellitus. No history of any premature coronary disease in the family. 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 Denies any resting or exertional angina. Denies any syncope. Denies any weakness. He has load and unload the truck himself and does his work without any discomfort. He can comfortably sprint 2-3 flight of stairs without any discomfort. PAST MEDICAL HISTORY Diagnosis Date Acute cholecystitis with acute cholangitis signed out AMA 02/23/2022 Acute pancreatitis, unspecified complication status, unspecified pancreatitis type 04/30/2022 Chronic obstructive pulmonary disease (HCC) 11/11/2018 Chronic rhinitis 11/11/2018 Depressive disorder 11/11/2018 [facility] to [facility] Gastroesophageal reflux disease without esophagitis 11/11/2018 Hepatitis C virus carrier state (HCC) 05/15/2019 HTN (hypertension) Hypothyroidism, unspecified 11/11/2018 Mass of left kidney enhancing on CT 02/23/2022 Restless legs 12/08/2021 Tubular adenoma of colon 09/05/2019 PAST SURGICAL HISTORY Procedure Laterality Date CARPAL TUNNEL Left 08/2018 COLSC FLX W/RMVL OF TUMOR POLYP LESION SNARE TQ 09/01/2019 EGD 09/01/2019 FACIAL RECONSTRUCTION SURGERY HX 2000 15 to 20 years ago FAMILY HISTORY Problem Relation Age of Onset Thyroid Sister other (murmur) Sister Social History Tobacco Use Smoking status: Former Packs/day: 1.00 Years: 40.00 Pack years: 40.00 Types: Cigarettes Quit date: 07/06/2022 Years since quittin.0 Smokeless tobacco: Former Types: Chew Tobacco comments: chews 2-3 cigarettes a day Vaping Use Vaping Use: Never used Substance Use Topics Alcohol use: Not Currently Comment: former alcoholic-quit 6 years ago Drug use: Not Currently Current Outpatient Medications Medication Sig MULTI-VITAMIN ORAL Take by mouth. albuterol HFA (PROVENTIL HFA, VENTOLIN HFA) 90 mcg/actuation inhaler Inhale 2 Puffs as instructed every 6 hours as needed for wheezing/shortness of breath. fluticasone (FLONASE) 50 mcg/actuation nasal spray Use 2 Sprays in each nostril once daily. fluticasone propion-salmeterol (AIRDUO RESPICLICK) 232-14 mcg/actuation Inhale 1 Puff as instructed twice daily. gabapentin (NEURONTIN) 300 mg capsule Take 1 capsule by mouth daily at bedtime for 180 days. hydrOXYchloroQUINE (PLAQUENIL) 200 mg tablet Take 1 tablet by mouth twice daily. levothyroxine (SYNTHROID) 125 mcg tablet Take 1 tablet by mouth once daily. meloxicam (MOBIC) 15 mg tablet Take 1 tablet by mouth once daily. With food. omeprazole (PRILOSEC) 40 mg capsule Take 1 capsule by mouth once daily. tiotropium bromide (SPIRIVA RESPIMAT) 2.5 mcg/actuation inhaler Inhale 2 Puffs as instructed once daily. triamcinolone (KENALOG) 0.025 % cream Apply 1 application to affected area twice daily. BABY ASPIRIN ORAL Take by mouth. losartan (COZAAR) 50 mg tablet Take 1 tablet by mouth twice daily. nicotine (NICODERM) 14 mg/24 hr Apply 1 Patch as directed every 24 hours. (Patient not taking: Reported on 08/03/2022) No current facility-administered medications for this visit. ALLERGIES No Known Allergies Cardiac Testing ECG: EKG in office today demonstrated sinus rhythm without any ST or T wave abnormalities. ROS: GENERAL: No weight loss, malaise or fevers. HEENT: Negative for frequent or significant headaches, No changes in hearing or vision, no nose bleeds or other nasal problems NECK: Negative for goiter, pain or significant neck swelling RESPIRATORY: See HPI CARDIOVASCULAR: See H GI: No nausea, vomiting, or diarrhea MUSCULOSKELETAL: Negative for joint pain or swelling, back pain or muscle pain SKIN: Negative for lesions, rash, and itching. ENDOCRINE: Negative for cold or heat intolerance, polyuria or polydipsia. NEURO: No history of headaches, syncope, paralysis, seizures or tremors BP 165/95 (BP Site: Right Arm, BP Position: Sitting, BP Cuff Size: Large Adult) Pulse 79 Resp 18 Ht 5' 11 (1.803 m) Wt 202 lb (91.6 kg) SpO2 96% BMI 28.17 kg/m Physical exam: General Appearance: Well appearing, alert, in no acute distress, well-hydrated, well nourished.. Skin: Skin color, texture, turgor normal, no suspicious rashes or lesions. Head: Normocephalic, no masses, lesions, tenderness or abnormalities. Eyes: Anicteric sclera. Pupils are equally round and reactive to light. Extraocular movements are intact. . Neck: Supple, no adenopathy; thyroid symmetric, normal size, no bruits. Lungs: Lungs clear to auscultation. No wheezing, rhonchi, rales.. Heart: regular rate and rhythm, no murmur, gallop or rub, normal, S1, S2, physiologic split, no lifts, heaves, or thrills, PMI not displaced Peripheral Pulses: Normal. ASSESSMENT/PLAN: 1. Preoperative cardiovascular examination - ICD9: V72.81, ICD10: Z01.810 (primary diagnosis) -He is 66-year-old male with no prior cardiac history. -Baseline, his functional capacity is beyond 4 METS. -He denies any cardiac symptoms. The resting EKG is without abnormalities. -The proposed surgery(cholecystectomy, laproscopic) would be low to intermediate risk. -Given his overall medical status and normal EKG, he would not need further testing from cardiac standpoint prior to the proposed surgery. -I did counsellors him regarding tobacco cessation and optimal blood pressure maintenance. -Proceed proposed laparoscopic cholecystectomy - ECG B/O W INTERP (MED OFFICE) 2. Primary hypertension - ICD9: 401.9, ICD10: I10 - suboptimal control - Recommended regular aerobic exercise. - Recommend home blood pressure monitoring, to bring results in on next visit - Goal of BP <130/80 - LOSARTAN 50 MG TABLET -I did increase losartan to 50 mg twice daily. -Neck step would be to add HCTZ or calcium channel ben to his medication regimen 3. Tobacco abuse counseling - ICD9: V65.42, 305.1, ICD10: Z71.6 - Cessation encouraged. - Physiologic and physical aspects of tobacco addiction as well as strategies for quitting were discussed. - Counseling was given focusing on the harmful effects of this addiction especially given the patient's medical condition(s) which will be worsened because of the chemicals in tobacco. Follow-up 1. Alex Kelly MD, MD Alex Kelly MD, [facility] [address], [address] [place] [id number] Facsimile: [phone] documented in this encounter [facility] 08-03-2022 Instructions Alex Kelly MD - 08/03/2022 12:04 PM EDT What is a high blood pressure emergency? A high blood pressure emergency is a serious - and even life-threatening - condition that can happen when a person's blood pressure gets much higher than normal. When a person's blood pressure gets very high, it can lead to problems in 1 or more of the following organs: ?Eyes - Problems can include bleeding in the back of the eye, or swelling of the nerve that runs from the eye to the brain. ?Brain - Problems can include swelling or bleeding in the brain, or a stroke. A stroke is when a part of the brain is damaged because of a problem with blood flow. ?Kidneys - Very high blood pressure can lead to kidney failure, which is when the kidneys stop working. ?Heart - Heart problems can include a heart attack, heart failure, or damage to a major blood vessel. When your doctor or nurse tells you your blood pressure, they say 2 numbers. For example, your doctor might say that your blood pressure is 140 over 90. When people have a high blood pressure emergency, their blood pressure is usually 180 over 120 or higher. Other terms doctors might use for a high blood pressure emergency are hypertensive emergency or malignant hypertension. Sometimes, a person's blood pressure is much higher than normal, but it hasn't damaged any organs. Doctors call this hypertensive urgency. Hypertensive urgency is not usually treated the same as a high blood pressure emergency. What are the symptoms of a high blood pressure emergency? The symptoms depend on the organ or organs affected. They can include: ?Blurry vision or other vision changes ?Headache ?Nausea or vomiting ?Confusion ?Passing out or seizures - Seizures are waves of abnormal electrical activity in the brain that can make people move or behave strangely. ?Weakness or numbness on 1 side of the body, or in 1 arm or leg ?Difficulty talking ?Trouble breathing ?Chest pain ?Pain in the upper back or between the shoulders ?Urine that is brown or bloody ?Pain in the lower back or 1 the side of the body Should I see a doctor or nurse? Yes. Call your doctor or nurse right away if you have any of the symptoms listed above, especially if you know that you have high blood pressure. Some people check their blood pressure at home using a home blood pressure meter. If you do this, call your doctor if you have 2 or more readings higher than 180 over 120. You should call even if you don't have any other symptoms. Will I need tests? Yes. Your doctor or nurse will ask about your symptoms, do an exam, and check your blood pressure. They might use a special light to look in the back of your eyes. Your doctor will also do tests to check how serious your condition is. Tests can include: ?Blood tests ?Urine tests ?A chest X-ray ?A CT scan or other imaging test of your brain - Imaging tests create pictures of the inside of the body. ?A CT scan or other imaging test of your chest ?An ECG (also called an electrocardiogram ) - This test measures the electrical activity in your heart (figure 1). How is a high blood pressure emergency treated? A high blood pressure emergency is treated in the hospital. Your doctor will give you medicines to lower your blood pressure quickly. These medicines are usually given through a thin tube that goes into your vein, called an IV. Your doctor will also treat any problems caused by your very high blood pressure, if they can be treated. People who have a high blood pressure emergency usually need long-term treatment to keep their blood pressure under control. This usually includes: ?Taking medicines ?Following a low-salt diet that includes a lot of fruits and vegetables ?Losing weight (if you are overweight) ?Getting regular exercise documented in this encounter [facility] 08-03-2022 Nurse Note Patient denies any cardiac issues or symptoms. documented in this encounter [facility] 07-28-2022 Miscellaneous Notes Summary: SOC Update [facility] SUPERVISOR FILLING AND PACKING NOTE Discussed the purpose of the [facility]. Reviewed modifiable risk factors identified in the [facility]: EXERCISE: Is wearing his pedometer, reports averaging about 1,000 steps a day. Encouraged to increase activity as much as possible prior to surgery. BREATHING: Remains tobacco free. Is using his IS about 30 times a day reaching about 2,000 ml of volume. Encouraged to increase use to 30-40 breaths/day. NUTRITION: Reports a good appetite and has increased his protein intact. Reviewed high protein food sources. Encouraged to include a protein source with each meal. [facility] to start 5 days prior to procedure, BID. STRESS RELIEF: Education given to patient for stress reduction/management. OR DATE: 08/14/2022 Meghan Mera APRN.[facility] July 28, 2022 documented in this encounter [facility] 07-20-2022 Miscellaneous Notes patient scheduled for 08/07. Called pt again with no answer this time and unable to leave a message. Rec'd fax from Dr. Smith's office asking pcp for surgery clearance. Pt is scheduled for laparoscopic cholecystectomy 08/14/22. Message left for pt to return call to arrange a pre op clearance within 30 days of scheduled surgery. documented in this encounter [facility] 07-13-2022 Miscellaneous Notes Addended by: SADE SMITH on: 07/13/2022 03:09 PM Modules accepted: Orders documented in this encounter [facility] 07-13-2022 Note HNO ID: [id number] Author: Meghan Mera APRN.[facility] Service: ? Author Type: Nurse Practitioner Type: Progress Notes Filed: 07/13/2022 2:35 PM Note Text: Summary: SOC Meghan Mera APRN.[facility] Surgery [facility]imization Clinic (SOC) [address], [address] [place] [id number] Patient: Alexandra Chacon Date of : 1955 Subjective Scheduled OR Date: 08/14/2022 Surgeon: Dr. Smith PCP: Abdi Verdugo MD DIAGNOSES: Acute Cholecystitis PLANNED PROCEDURE: Laparoscopic cholecystectomy HPI Alexandra Chacon is a 66 year old male, who was recently evaluated for surgery and has elected to proceed with the above mentioned surgical intervention. Patient has a h/o COPD, tobacco use, depression, HEP C, liver cirrhosis, h/o ETOH abuse. Patient was seen in the ED in [place] 02/2022 for vomiting after eating for the preceding three months. It was found that he had cholelithiasis. He was treated with ATBs, but left the hospital AMA. Patient has met with Dr. Smith and is scheduled for a laparoscopic cholecystectomy on 08/14/22. Patient reports my symptoms are dormant right now. Does have some ABD discomfort of a 4/10 today, takes pain medications for arthritis that also helps with this pain. Denies any N/V/D/C, blood in the stool. He reports chronic SOBE, and occasional dizziness with positional changes, but denies any syncope or CP. Denies any recent fevers, or chills. PAST MEDICAL HISTORY PAST MEDICAL HISTORY Diagnosis Date Acute cholecystitis with acute cholangitis signed out AMA 02/23/2022 Acute pancreatitis, unspecified complication status, unspecified pancreatitis type 04/30/2022 Chronic obstructive pulmonary disease (HCC) 11/11/2018 Chronic rhinitis 11/11/2018 Depressive disorder 11/11/2018 [facility] to [facility] Gastroesophageal reflux disease without esophagitis 11/11/2018 Hepatitis C virus carrier state (HCC) 05/15/2019 Hypothyroidism, unspecified 11/11/2018 Mass of left kidney enhancing on CT 02/23/2022 Restless legs 12/08/2021 Tubular adenoma of colon 09/05/2019 FAMILY HISTORY FAMILY HISTORY Problem Relation Age of Onset Thyroid Sister other (murmur) Sister PAST SURGICAL HISTORY PAST MEDICAL HISTORY Diagnosis Date Acute cholecystitis with acute cholangitis signed out AMA 02/23/2022 Acute pancreatitis, unspecified complication status, unspecified pancreatitis type 04/30/2022 Chronic obstructive pulmonary disease (HCC) 11/11/2018 Chronic rhinitis 11/11/2018 Depressive disorder 11/11/2018 Goes to [facility] Gastroesophageal reflux disease without esophagitis 11/11/2018 Hepatitis C virus carrier state (HCC) 05/15/2019 Hypothyroidism, unspecified 11/11/2018 Mass of left kidney enhancing on CT 02/23/2022 Restless legs 12/08/2021 Tubular adenoma of colon 09/05/2019 ALLERGIES ALLERGIES No Known Allergies MEDICATIONS Current Outpatient Medications Medication Sig Dispense Refill MULTI-VITAMIN ORAL Take by mouth. albuterol HFA (PROVENTIL HFA, VENTOLIN HFA) 90 mcg/actuation inhaler Inhale 2 Puffs as instructed every 6 hours as needed for wheezing/shortness of breath. 8.5 g 5 fluticasone (FLONASE) 50 mcg/actuation nasal spray Use 2 Sprays in each nostril once daily. 1 Each 5 fluticasone propion-salmeterol (AIRDUO RESPICLICK) 232-14 mcg/actuation Inhale 1 Puff as instructed twice daily. 1 Each 5 gabapentin (NEURONTIN) 300 mg capsule Take 1 capsule by mouth daily at bedtime for 180 days. 30 capsule 5 hydrOXYchloroQUINE (PLAQUENIL) 200 mg tablet Take 1 tablet by mouth twice daily. 60 tablet 3 levothyroxine (SYNTHROID) 125 mcg tablet Take 1 tablet by mouth once daily. 30 tablet 5 losartan (COZAAR) 50 mg tablet Take 1 tablet by mouth once daily. 30 tablet 5 meloxicam (MOBIC) 15 mg tablet Take 1 tablet by mouth once daily. With food. 30 tablet 5 omeprazole (PRILOSEC) 40 mg capsule Take 1 capsule by mouth once daily. 30 capsule 5 tiotropium bromide (SPIRIVA RESPIMAT) 2.5 mcg/actuation inhaler Inhale 2 Puffs as instructed once daily. 4 g 5 triamcinolone (KENALOG) 0.025 % cream Apply 1 application to affected area twice daily. 30 g 1 BABY ASPIRIN ORAL Take by mouth. nicotine (NICODERM) 14 mg/24 hr Apply 1 Patch as directed every 24 hours. 14 Patch 1 No current facility-administered medications for this visit. Review of Systems Review of Systems Constitutional: Negative for chills, fever and unexpected weight change. HENT: Negative for trouble swallowing. Respiratory: Positive for shortness of breath (chronic SOBE). Negative for cough. Cardiovascular: Negative for chest pain and palpitations. Gastrointestinal: Positive for abdominal pain. Negative for blood in stool, constipation, diarrhea, nausea and vomitin (more content not included)... [facility] 07-13-2022 History of Present illness Narrative Summary: SOC Images from the original note were not included. Meghan Mera APRN.[facility] Surgery Optimization Clinic (SOC) [address] [facility], [place] [id number] Patient: Alexandra Chacon Date of : 1955 Subjective Scheduled OR Date: 08/14/2022 Surgeon: Dr. Smith PCP: Abdi Verdugo MD DIAGNOSES: Acute Cholecystitis PLANNED PROCEDURE: Laparoscopic cholecystectomy HPI Alexandra Chacon is a 66 year old male, who was recently evaluated for surgery and has elected to proceed with the above mentioned surgical intervention. Patient has a h/o COPD, tobacco use, depression, HEP C, liver cirrhosis, h/o ETOH abuse. Patient was seen in the ED in [place] 02/2022 for vomiting after eating for the preceding three months. It was found that he had cholelithiasis. He was treated with ATBs, but left the hospital AMA. Patient has met with Dr. Smith and is scheduled for a laparoscopic cholecystectomy on 08/14/22. Patient reports my symptoms are dormant right now. Does have some ABD discomfort of a 4/10 today, takes pain medications for arthritis that also helps with this pain. Denies any N/V/D/C, blood in the stool. He reports chronic SOBE, and occasional dizziness with positional changes, but denies any syncope or CP. Denies any recent fevers, or chills. PAST MEDICAL HISTORY PAST MEDICAL HISTORY Diagnosis Date Acute cholecystitis with acute cholangitis signed out AMA 02/23/2022 Acute pancreatitis, unspecified complication status, unspecified pancreatitis type 04/30/2022 Chronic obstructive pulmonary disease (HCC) 11/11/2018 Chronic rhinitis 11/11/2018 Depressive disorder 11/11/2018 Goes to [facility] Gastroesophageal reflux disease without esophagitis 11/11/2018 Hepatitis C virus carrier state (HCC) 05/15/2019 Hypothyroidism, unspecified 11/11/2018 Mass of left kidney enhancing on CT 02/23/2022 Restless legs 12/08/2021 Tubular adenoma of colon 09/05/2019 FAMILY HISTORY FAMILY HISTORY Problem Relation Age of Onset Thyroid Sister other (murmur) Sister PAST SURGICAL HISTORY PAST MEDICAL HISTORY Diagnosis Date Acute cholecystitis with acute cholangitis signed out AMA 02/23/2022 Acute pancreatitis, unspecified complication status, unspecified pancreatitis type 04/30/2022 Chronic obstructive pulmonary disease (HCC) 11/11/2018 Chronic rhinitis 11/11/2018 Depressive disorder 11/11/2018 Goes to [facility] Gastroesophageal reflux disease without esophagitis 11/11/2018 Hepatitis C virus carrier state (HCC) 05/15/2019 Hypothyroidism, unspecified 11/11/2018 Mass of left kidney enhancing on CT 02/23/2022 Restless legs 12/08/2021 Tubular adenoma of colon 09/05/2019 ALLERGIES ALLERGIES No Known Allergies MEDICATIONS Current Outpatient Medications Medication Sig Dispense Refill MULTI-VITAMIN ORAL Take by mouth. albuterol HFA (PROVENTIL HFA, VENTOLIN HFA) 90 mcg/actuation inhaler Inhale 2 Puffs as instructed every 6 hours as needed for wheezing/shortness of breath. 8.5 g 5 fluticasone (FLONASE) 50 mcg/actuation nasal spray Use 2 Sprays in each nostril once daily. 1 Each 5 fluticasone propion-salmeterol (AIRDUO RESPICLICK) 232-14 mcg/actuation Inhale 1 Puff as instructed twice daily. 1 Each 5 gabapentin (NEURONTIN) 300 mg capsule Take 1 capsule by mouth daily at bedtime for 180 days. 30 capsule 5 hydrOXYchloroQUINE (PLAQUENIL) 200 mg tablet Take 1 tablet by mouth twice daily. 60 tablet 3 levothyroxine (SYNTHROID) 125 mcg tablet Take 1 tablet by mouth once daily. 30 tablet 5 losartan (COZAAR) 50 mg tablet Take 1 tablet by mouth once daily. 30 tablet 5 meloxicam (MOBIC) 15 mg tablet Take 1 tablet by mouth once daily. With food. 30 tablet 5 omeprazole (PRILOSEC) 40 mg capsule Take 1 capsule by mouth once daily. 30 capsule 5 tiotropium bromide (SPIRIVA RESPIMAT) 2.5 mcg/actuation inhaler Inhale 2 Puffs as instructed once daily. 4 g 5 triamcinolone (KENALOG) 0.025 % cream Apply 1 application to affected area twice daily. 30 g 1 BABY ASPIRIN ORAL Take by mouth. nicotine (NICODERM) 14 mg/24 hr Apply 1 Patch as directed every 24 hours. 14 Patch 1 No current facility-administered medications for this visit. Review of Systems Review of Systems Constitutional: Negative for chills, fever and unexpected weight change. HENT: Negative for trouble swallowing. Respiratory: Positive for shortness of breath (chronic SOBE). Negative for cough. Cardiovascular: Negative for chest pain and palpitations. Gastrointestinal: Positive for abdominal pain. Negative for blood in stool, constipation, diarrhea, nausea and vomiting. Genitourinary: Negative for hematuria. Musculoskeletal: Negative for gait problem. Skin: Negative for rash and wound. Neurological: Positive for dizziness (occasionally with positional changes). Negative for seizures, syncope and headaches. Psychiatric/Behavioral: Negative for confusion. The patient is not nervous/anxious. OBJECTIVE PHYSICAL EXAMINATION: BP 158/100 Pulse 71 Resp 18 Ht 180.3 cm (5' 11 ) Wt 92.5 kg (204 lb) SpO2 97% BMI 28.45 kg/m Body mass index is 28.45 kg/m . Physical Exam Vitals and nursing note reviewed. Eyes: Pupils: Pupils are equal, round, and reactive to light. Neck: Vascular: No carotid bruit. Cardiovascular: Rate and Rhythm: Normal rate and regular rhythm. Pulses: Normal pulses. Heart sounds: Normal heart sounds. Pulmonary: Effort: Pulmonary effort is normal. Breath sounds: Normal breath sounds. Abdominal: General: Bowel sounds are normal. Musculoskeletal: Right lower leg: No edema. Left lower leg: No edema. Skin: Findings: No erythema or lesion. Neurological: Mental Status: He is alert and oriented to person, place, and time. ADVANCED DIRECTIVES ADVANCED CARE PLANNING: Has HCPOA and Has Living Will SURROGATE DECISION MAKERS: DaughterAustin, number on file and confirmed -If yes, does the patient have a copy for [facility] to have on file: No, will bring in to be scanned MENTAL STATUS: 4AT Delirium Test: -Alertness: Normal=0 Mild sleepiness for <10 seconds after waking, then normal=0 Clearly abnormal=4 -Abbreviated Mental Test: Age, , Location, current year(No mistake=0, One mistake=1, Two or more=2) -Attention: Months of the year backwards-(7 or more=0, less than 7=1, intestable=2) -Acute Change: Fluctuation in alertness, cognition, hallucinations over the past 2 weeks (No=0, yes=4) Total: 0 4 or more:possible delirium and/or cognitive impairment 1-3: possible cognitive impairment 0:Delirium or severe cognitive impairment unlikely Discussed possibility of delirium during hospital course Social History: Limited finances/resources: no Home assistance/caregiver required after surgery: no Currently involved with Case Management/Merchant Miller: no Home environment/homeless/hygiene concerns: no PHQ-9 Questionnaire: Denies PHQ-9 All Questions 02/14/2019 Little interest or pleasure in doing things 0 Feeling down, depressed, or hopeless 0 (0-4) minimal depression, (5-9) mild depression, (10-14) moderate depression, (15-19) moderately severe depression, (20-27) severe depression VASU-7 (Anxiety): Denies No Data Recorded (0-4) minimal anxiety, (5-9) mild anxiety, (10-14) moderate anxiety, (15-21) severe anxiety Functional Status: Clinical Frailty Scale: -Very Fit- Exercise regularly (1) -Well- Occasionally active (2) -Managing Well- Not regularly active (3) -Vulnerable- Limited activity/tired throughout day/ slowed up (4) -Mildly Frail- Help needed with ADLs (finances, medications, transportation) (5) -Moderately Frail- Help with all outside activities and with keeping the house, stairs/bathing/dressing (6) -Severely Frail- Completely dependent for personal care (7) -Very Severely frail- Approaching End of Life (8) -Terminally Ill- Life expectancy < 6 months (9) SCORE: 2 Score 1-3- Walking Program Functional assessment: WNL=Within normal limits Substance Abuse: Has been sober for over 10 years The Alcohol Use Disorders Identification Test (AUDIT): No flowsheet data found.The scoring instructions are as follows: Risk Level Intervention AUDIT score Zone I Alcohol Education 0-7 Zone II Simple Advice 8-15 Zone III Simple Advice plus Brief Counseling and Continued Monitoring 16-19 Zone IV Referral to Specialist for Diagnostic Evaluation and Treatment 20-40 SMOKER/TOBACCO USE: Yes -Patient smokes: Stopped smoking last week, 40 pack years, reports still chewing part of a cigar every day -If yes, was the patient provided with cessation education: Yes -If yes, would the patient like pharmacotherapy to assist in cessation: Yes, gum ordered -Patient was advised to completely stop smoking prior to initiation of nicotine replacement therapy. Drug Abuse Screen Test (DAST-10): denies No flowsheet data found. Sleep Apnea STOP BANG Questionnaire 1. Snoring Do you snore loudly (louder than talking or loud enough to be heard through closed doors)? NO 2. Tired Do you often feel tired, fatigued, or sleepy during daytime? NO 3. Observed Has anyone observed you stop breathing during your sleep? NO 4. Blood Pressure Do you have or are you being treated for high blood pressure? YES 5. BMI BMI more than 35 kg/m2? NO 6. Age Age over 50 yr old? YES 7. Neck circumference Neck circumference greater than 40 cm? NO 8. Gender Gender male? YES High risk of MARTHA: answering yes to three or more items Low risk of MARTHA: answering yes to less than three items - sleep test over ten years was negative Nutrition: Perioperative Nutrition Score (MELANY) BMI <18.5: No BMI <20 if age >65: No Eating less than 50% of normal diet in the preceding week: No Unplanned weight loss >10% in past 6 months: No Albumin Level less than 3: no Albumin Date Value Ref Range Status 05/01/2022 3.7 (L) 3.9 - 4.9 g/dL Final Dyspnea Assessment (mMRC Dyspnea Scale): Dx of COPD/Asthma: Yes -I only get breathless with strenuous exercise 0 -I get SOB when hurrying on level ground or walking up a slight hill 1 -On level ground, I walk slower than people of the same age because of breathlessness, or have to stop for breath when walking at my own pace. 2 -I stop for breath after walking about 100 yards or after a few minutes on level ground 3 -I am too breathless to leave the house or I am breathless when dressing 4 Score: 0 Venous Thromboembolism Risk Assessment: Hx clotting disorder: No Hx PE/DVT: no OAC Use: No ASA use: Yes: 81 mg daily for health prevention Pulmonology: Asthma: no COPD: yes On Spiriva, Flonase, Albuterol, states he uses his rescue inhaler rarely Hypoventilation syndrome: no Operations Management Trainee: NA Recent exacerbation: none, no recent PNA, or bronchitis Cardiac: Beta Ben use: No Hx of CAD: no Hx of HLD: no CHF: no Prior [place]: no Hx abnormal EKG: no Hx abnormal heart rhythm: no Valvular heart disease: no Hx endocarditis: no PAD: no PVD: no CVA: no HTN: yes, not well-optimization Pulmonary HTN: no Hx cardiovascular surgery: no 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 Patient has a h/o COPD, tobacco use, depression, HEP C, liver cirrhosis, h/o ETOH abuse. Patient was seen in the ED in [place] 02/2022 for vomiting after eating for the preceding three months. It was found that he had cholelithiasis. He was treated with ATBs, but left the hospital AMA. Patient has met with Dr. Smith and is scheduled for a laparoscopic cholecystectomy on 08/14/22. Vulnerabilities Assessed at Visit: 1.) Malnutrition: Albumin 3.7, reports good appetite, aim for 77 grams of protein a day, 1-2 servings of green leafy vegetables daily, Impact Advanced Recovery BID to start 5 days prior to surgery. Will get Vitamin D level. 2.) Smoker: 40 pack years, reports stopped smoking last week, still chewing cigar daily. Nicotine gum ordered, encouraged complete cessation.Has COPD, on Spiriva and Albuterol, rarely uses rescue inhaler, METS >5, start IS 30-40 times a day 3.) High risk for MARTHA: 24 hour SpO2 monitoring during hospital stay, per PCP for outpatient PSG 4.) Elevated BP readings: On Cozaar 50 mg daily. BP readings repeated today running 150's/100's. Denies any symptoms. Tracks at home readings, usually 130's/90's. Encouraged to document readings at home and bring to Cardio/PCP appt for optimization. NUTRITION: MELANY score: positive Albumin (g/dL) Date Value 05/01/2022 3.7 (L) -Education provided with reference material given to patient -Impact nutritional supplements given to start 5 days prior to, BID -Vitamin D Level ordered -Make sure to eat source of lean protein at each meal, aim for 73 grams of protein a day -Aim for 2 servings of leafy green vegetables a day -Limit total carb intake to less than 150 grams a day ANEMIA: No Hematocrit Date Value Ref Range Status 05/01/2022 44.8 39.0 - 51.0 % Final Iron Date Value Ref Range Status 11/27/2020 90 41 - 186 ug/dL Final Transferrin Saturation Date Value Ref Range Status 11/27/2020 29 15 - 57 % Final CKD: No Creatinine (mg/dL) Date Value 05/01/2022 0.94 -Reviewed with the patient the importance of hydration pre/postoperatively. DIABETES: No MOBILITY: -Frailty score: 2=walking program -Pedometer: increase your steps by 100 every couple of days, goal is 5,000 steps per day over baseline COGNITION: -4AT score: 0= low risk for delirium -Patient should bring all sensory aids with them DOS -Discussed risk of delirium during hospital course PSYCHOSOCIAL: -Educational material given to patient for stress reduction/management -Tobacco cessation encouraged, counseling was given about the harmful effects of tobacco use -Denies any depression or anxiety CARDIAC: Recommended cardiac clearance: Yes, requested per surgeon, has appt on 08/03/2022 -BP not optimally controlled, to track BP readings at home and discuss with Cardio or PCP -Continue BP medication during preoperative period as prescribed VENOUS THROMBOEMBOLISM RISK ASSESSMENT: -Surgeon to determine prophylaxis regimen -On ASA 81 mg for health prevention PULMONOLOGY: Stop BANG: high risk for MARTHA Dyspnea Scale: 0, reports chronic SOBE, but states he is able to climb a flight of stairs with out having to stop to catch his breath, denies any CP -Referral for sleep study, per PCP for outpatient PSG -Start IS, instructions reviewed -Recommend using IS 10 times an hour while awake during hospital course -The function of the surgery optimization clinic is to optimize modifiable risk factors prior to surgery. This clinic does not provide medical clearance for surgery. As always, the decision whether or not to proceed with surgery should be based on an evaluation of the risks versus benefits of the procedure, and should be made between the patient in the surgeon. -A letter and copy of this encounter was sent to referring surgeon and the patient's primary care provider. -Surgery optimization clinic RN will follow up with patient on areas addressed for optimization. I spent a total of 90 minutes on the date of the service which included preparing to see the patient, [id number] patient care, completing clinical documentation, obtaining and/or reviewing separately obtained history, performing a medically appropriate examination, counseling and educating the patient/family/caregiver, ordering medications, tests, or procedures, and communicating with other HCPs (not separately reported). ELECTRONICALLY SIGNED AND DATED BY: Meghan Mera APRN, CNP [facility] Surgery Optimization Clinic documented in this encounter [facility] 07-09-2022 Instructions Meghan Mera APRN.[facility] - 07/09/2022 2:45 PM EST Incentive Spirometer: -Start with breathing exercise today, goal 30-40 breaths a day *Incentive spirometer is used to help with lung expansion post operatively. It can be of benefit preoperatively to for those who smoke or have lung disease. Use the spirometer as instructed during your hospital visit. Take 10 deep breaths, hold for one second and then slowly exhale. You can take cleansing breaths in between as needed to avoid feeling dizzy or lightheaded. Use the spirometer hourly if possible. You will continue with this postoperatively. Pedometer: -Pedometer to monitor your steps starting today -For the first 3 days monitor your average daily steps to get your baseline number -Then increase your steps by 200-300 every couple of days as able -Goal is to increase mobility as much as possible prior to surgery * Research has shown that increased strength, mobility and function preoperatively will help you to recover with less complication. Your effort preoperatively will yield better results postoperatively Stress Relief: -Deep breathing exercises -Sleep: 6-8 hours of sleep each night -Meditate -Laughing -Walking -Positive self-talk -Finding a support system -Exercise, walking, being active Nutrition: -Make sure you are getting enough protein a day, with a goal of at least 1 high-protein food with each of your three meals a day -Make sure you are including high calcium foods, at least 3 servings a day: low-fat dairy, dark-leafy greens, sardines, or calcium-fortified cereals -Make sure you are getting vitamins and minerals by including at least four servings of fruits/vegetables a day - Drink 2 shakes daily for 5 days leading up to the day of surgery. *It has been shown through research that boosting the nutritional intake preoperatively with calories, vitamins and minerals, and hydration, promotes early recovery and improved healing postoperatively. You have been provided a case of supplement to take. Advanced Directives: Advanced directives are your preferences and personal requests in the event you are unable to make decisions for yourself following surgery. It is important for you to discuss your wishes with your family. It is requested that a single family member be designated as your power of business attorney in the event you cannot speak for yourself. This person should know what you would prefer as your medical choices if you were not compromised. This person, family or friend, should know what you prefer for your medical care and decisions if you are unable to make those decisions for yourself. Notify your surgeon s office to update your records with the designated Durable Power of Rigging Supervisor. -A great web site for information: www.prepareforyourcare.org Sensory Aids: -If you have any sensory aids, such as hearing aids, or glasses, please bring these with you day of surgery -Encouraged to bring sleep hygiene items such as ear plugs and eye mask for more restful sleep during hospital stay - Information sheet on Delirium given to patient Sleep Apnea: If you have a CPAP machine, please bring that with you day of surgery. Smoking Cessation: -Quit smoking or vaping -Goal is to be abstinent from smoking prior to surgery, the sooner you quit, the less risk of post-op complications -Handout given on importance of smoking cessation -Resourceful web site: www.[employer] - [facility] smoke cessation resources: 1(489)-QUIT-NOW documented in this encounter [facility] 07-03-2022 Miscellaneous Notes Pt says he hasn't been called by surgery and was supposed to be setting up appointments. Previous note reviewed. Pt was told attempts were made on 06/25, 06/26, and 06/29 to call him. 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 Dept phone number given to pt. documented in this encounter [facility] 06-26-2022 Miscellaneous Notes Called patient, no answer. Left VM to call our office to begin process for scheduling surgery. Tara CURTIS Called patient, no answer. Unable to leave VM due to VM box being full. Need to schedule SOC and discuss cardiac clearance prior to scheduling surgery. Tara CURTIS documented in this encounter [facility] 06-24-2022 Note HNO ID: [id number] Author: Sade Smith MD Service: ? Author Type: Physician Type: Progress Notes Filed: 06/25/2022 12:07 PM Note Text: Patient referred by: Abdi Verdugo [id number] [facility] [id number] HPI: This is a new patient consult from Dr. Verdugo. Mr Chacon is a 66 y/o gentleman who is here for evaluation and management of acute on chronic cholecystitis. 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 He does not have a h/o paracentesis, no h/o GI bleed and no h/o encephalopathy. He has completed treatment for Hep C. He has been admitted to the hospital twice in the recent few months for acute cholecystitis - both of which were managed non operatively without issues. He presents today for evaluation. At this time, he has some persistent abdominal pain which is better than before. Eating some foods makes this worse. No fevers/chills. No nausea/vomiting. No jaundice. No change in urine or stool color. His evaluation includes a CT of the abdomen pelvis fro m106/30/21 showing mild pericholecystic edema, possibly secondary to chronic liver disease or cholecystitis. Cirrhosis without any focal hepatic lesions. He also underwent an ultrasound of the abdomen on 04/29/22 showing heterogenous/coarse echogenicity of the liver, mildly lobulated, no intra or extra-hepatic biliary dilation, gallbladder wall is thickened, meier's signs positive and no pericholecystic edema. His most recent blood work is from 05/01/22 showing a normal INR, normal LFTs and a normal platelet count. PAST MEDICAL HISTORY Diagnosis Date Acute cholecystitis with acute cholangitis signed out AMA 02/23/2022 Acute pancreatitis, unspecified complication status, unspecified pancreatitis type 04/30/2022 Chronic obstructive pulmonary disease (HCC) 11/11/2018 Chronic rhinitis 11/11/2018 Depressive disorder 11/11/2018 Goes to [facility] Gastroesophageal reflux disease without esophagitis 11/11/2018 Hepatitis C virus carrier state (HCC) 05/15/2019 Hypothyroidism, unspecified 11/11/2018 Mass of left kidney enhancing on CT 02/23/2022 Restless legs 12/08/2021 Tubular adenoma of colon 09/05/2019 PAST SURGICAL HISTORY Procedure Laterality Date CARPAL TUNNEL Left 08/2018 COLSC FLX W/RMVL OF TUMOR POLYP LESION SNARE TQ 09/01/2019 EGD 09/01/2019 FACIAL RECONSTRUCTION SURGERY HX 2000 15 to 20 years ago FAMILY HISTORY Problem Relation Age of Onset Thyroid Sister Social History Tobacco Use Smoking status: Some Days Types: Cigarettes Last attempt to quit: 08/11/2018 Years since quittin.8 Smokeless tobacco: Former Types: Chew Tobacco comments: chews 2-3 cigarettes a day Vaping Use Vaping Use: Never used Substance Use Topics Alcohol use: Not Currently Comment: former alcoholic-quit 6 years ago Drug use: Not Currently Current Outpatient Medications Medication Sig BABY ASPIRIN ORAL Take by mouth. meloxicam (MOBIC) 15 mg tablet Take 1 tablet by mouth once daily. With food. fluticasone propion-salmeterol (AIRDUO RESPICLICK) 232-14 mcg/actuation Inhale 1 Puff as instructed twice daily. losartan (COZAAR) 50 mg tablet Take 1 tablet by mouth once daily. tiotropium bromide (SPIRIVA RESPIMAT) 2.5 mcg/actuation inhaler Inhale 2 Puffs as instructed once daily. albuterol HFA (PROVENTIL HFA, VENTOLIN HFA) 90 mcg/actuation inhaler Inhale 2 Puffs as instructed every 6 hours as needed for wheezing/shortness of breath. fluticasone (FLONASE) 50 mcg/actuation nasal spray Use 2 Sprays in each nostril once daily. omeprazole (PRILOSEC) 40 mg capsule Take 1 capsule by mouth once daily. levothyroxine (SYNTHROID) 125 mcg tablet Take 1 tablet by mouth once daily. triamcinolone (KENALOG) 0.025 % cream Apply 1 application to affected area twice daily. gabapentin (NEURONTIN) 300 mg capsule Take 1 capsule by mouth daily at bedtime for 180 days. hydrOXYchloroQUINE (PLAQUENIL) 200 mg tablet Take 1 tablet by mouth twice daily. No current facility-administered medications for this visit. ALLERGIES No Known Allergies REVIEW OF SYSTEMS: Review of Systems Constitutional: Negative for chills, fever, malaise/fatigue and weight loss. Respiratory: Negative for cough, shortness of breath and wheezing. Cardiovascular: Negative for chest pain, orthopnea and leg swelling. Gastrointestinal: Positive for abdominal pain. Negative for blood in stool, constipation, diarrhea, heartburn, melena, nausea and vomiting. Genitourinary: Negative for dysuria and frequency. Musculoskeletal: Negative for falls and myalgias. Skin: Negative for rash. Neurological: Negative for dizziness, tingling, tremors and weakness. Endo/Heme/Allergies: Does not bruise/bleed easily. Psychiatric/Behavioral: Negative for depression, substance abuse and suicidal ideas. The patient is not nervous/anxious (more content not included)... [facility] 06-24-2022 History of Present illness Narrative Patient referred by: Abdi Verdugo [address] [facility] [id number] HPI: This is a new patient consult from Dr. Verdugo. Mr Chacon is a 66 y/o gentleman who is here for evaluation and management of acute on chronic cholecystitis. 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 He does not have a h/o paracentesis, no h/o GI bleed and no h/o encephalopathy. He has completed treatment for Hep C. He has been admitted to the hospital twice in the recent few months for acute cholecystitis - both of which were managed non operatively without issues. He presents today for evaluation. At this time, he has some persistent abdominal pain which is better than before. Eating some foods makes this worse. No fevers/chills. No nausea/vomiting. No jaundice. No change in urine or stool color. His evaluation includes a CT of the abdomen pelvis fro m106/30/21 showing mild pericholecystic edema, possibly secondary to chronic liver disease or cholecystitis. Cirrhosis without any focal hepatic lesions. He also underwent an ultrasound of the abdomen on 04/29/22 showing heterogenous/coarse echogenicity of the liver, mildly lobulated, no intra or extra-hepatic biliary dilation, gallbladder wall is thickened, meier's signs positive and no pericholecystic edema. His most recent blood work is from 05/01/22 showing a normal INR, normal LFTs and a normal platelet count. PAST MEDICAL HISTORY Diagnosis Date Acute cholecystitis with acute cholangitis signed out AMA 02/23/2022 Acute pancreatitis, unspecified complication status, unspecified pancreatitis type 04/30/2022 Chronic obstructive pulmonary disease (HCC) 11/11/2018 Chronic rhinitis 11/11/2018 Depressive disorder 11/11/2018 Goes to [facility] Gastroesophageal reflux disease without esophagitis 11/11/2018 Hepatitis C virus carrier state (HCC) 05/15/2019 Hypothyroidism, unspecified 11/11/2018 Mass of left kidney enhancing on CT 02/23/2022 Restless legs 12/08/2021 Tubular adenoma of colon 09/05/2019 PAST SURGICAL HISTORY Procedure Laterality Date CARPAL TUNNEL Left 08/2018 COLSC FLX W/RMVL OF TUMOR POLYP LESION SNARE TQ 09/01/2019 EGD 09/01/2019 FACIAL RECONSTRUCTION SURGERY HX 2000 15 to 20 years ago FAMILY HISTORY Problem Relation Age of Onset Thyroid Sister Social History Tobacco Use Smoking status: Some Days Types: Cigarettes Last attempt to quit: 08/11/2018 Years since quittin.8 Smokeless tobacco: Former Types: Chew Tobacco comments: chews 2-3 cigarettes a day Vaping Use Vaping Use: Never used Substance Use Topics Alcohol use: Not Currently Comment: former alcoholic-quit 6 years ago Drug use: Not Currently Current Outpatient Medications Medication Sig BABY ASPIRIN ORAL Take by mouth. meloxicam (MOBIC) 15 mg tablet Take 1 tablet by mouth once daily. With food. fluticasone propion-salmeterol (AIRDUO RESPICLICK) 232-14 mcg/actuation Inhale 1 Puff as instructed twice daily. losartan (COZAAR) 50 mg tablet Take 1 tablet by mouth once daily. tiotropium bromide (SPIRIVA RESPIMAT) 2.5 mcg/actuation inhaler Inhale 2 Puffs as instructed once daily. albuterol HFA (PROVENTIL HFA, VENTOLIN HFA) 90 mcg/actuation inhaler Inhale 2 Puffs as instructed every 6 hours as needed for wheezing/shortness of breath. fluticasone (FLONASE) 50 mcg/actuation nasal spray Use 2 Sprays in each nostril once daily. omeprazole (PRILOSEC) 40 mg capsule Take 1 capsule by mouth once daily. levothyroxine (SYNTHROID) 125 mcg tablet Take 1 tablet by mouth once daily. triamcinolone (KENALOG) 0.025 % cream Apply 1 application to affected area twice daily. gabapentin (NEURONTIN) 300 mg capsule Take 1 capsule by mouth daily at bedtime for 180 days. hydrOXYchloroQUINE (PLAQUENIL) 200 mg tablet Take 1 tablet by mouth twice daily. No current facility-administered medications for this visit. ALLERGIES No Known Allergies REVIEW OF SYSTEMS: Review of Systems Constitutional: Negative for chills, fever, malaise/fatigue and weight loss. Respiratory: Negative for cough, shortness of breath and wheezing. Cardiovascular: Negative for chest pain, orthopnea and leg swelling. Gastrointestinal: Positive for abdominal pain. Negative for blood in stool, constipation, diarrhea, heartburn, melena, nausea and vomiting. Genitourinary: Negative for dysuria and frequency. Musculoskeletal: Negative for falls and myalgias. Skin: Negative for rash. Neurological: Negative for dizziness, tingling, tremors and weakness. Endo/Heme/Allergies: Does not bruise/bleed easily. Psychiatric/Behavioral: Negative for depression, substance abuse and suicidal ideas. The patient is not nervous/anxious and does not have insomnia. PHYSICAL EXAM: BP 166/106[patient didnt take meds today[ Pulse 82 Ht 5' 11 (1.80m) Wt 201 lb (91.2kg) BMI 28.05 kg/(m^2). Last 2 Encounter Wt Readings: Date: Wt: 06/24/2022 91.2 kg (201 lb) 05/05/2022 87.1 kg (192 lb) Physical Exam Vitals reviewed. Constitutional: General: He is not in acute distress. Appearance: He is not diaphoretic. HENT: Head: Normocephalic. Eyes: General: No scleral icterus. Conjunctiva/sclera: Conjunctivae normal. Pupils: Pupils are equal, round, and reactive to light. Neck: Thyroid: No thyromegaly. Trachea: No tracheal deviation. Cardiovascular: Rate and Rhythm: Regular rhythm. Pulmonary: Effort: Pulmonary effort is normal. No respiratory distress. Breath sounds: No wheezing. Chest: Chest wall: No tenderness. Abdominal: General: There is no distension. Palpations: There is no mass. Tenderness: There is no abdominal tenderness. There is no guarding or rebound. Hernia: No hernia is present. Musculoskeletal: General: No tenderness or deformity. Normal range of motion. Cervical back: Normal range of motion and neck supple. Lymphadenopathy: Cervical: No cervical adenopathy. Skin: General: Skin is warm and dry. Coloration: Skin is not pale. Findings: No erythema or rash. Neurological: Mental Status: He is alert and oriented to person, place, and time. Coordination: Coordination normal. Psychiatric: Mood and Affect: Mood and affect normal. DATA: Diagnostic tests reviewed for today's visit: Most recent labs Most recent imaging I spent a total of 60 minutes on the date of the service which included preparing to see the patient, [id number] patient care, completing clinical documentation, obtaining and/or reviewing separately obtained history, performing a medically appropriate examination, counseling and educating the patient/family/caregiver, ordering medications, tests, or procedures, communicating with other HCPs (not separately reported), and independently interpreting results (not separately reported). ASSESSMENT / PLAN: Problem List Items Addressed This Visit None Visit Diagnoses Acute cholecystitis with chronic cholecystitis - Primary Relevant Orders CON[facility]ULT TO [facility] CONSULT TO GASTROENTEROLOGY Alcoholic cirrhosis of liver without ascites (HCC) Relevant Orders CONSULT TO [facility] CONSULT TO GASTROENTEROLOGY Tobacco use disorder Relevant Orders CONSULT TO [facility] CONSULT TO GASTROENTEROLOGY Medical Decision Making: Problems: Moderate: 2+ stable chronic illnesses and New problem with uncertain prognosis Data: Unique source(s) for external note(s) reviewed: 3+ Unique test result(s) reviewed: 3+ Discussed management or test w/ external physician/QHCP/source Risk: High: High risk from testing/treatment and Decision on elective major surgery w/ risk factors Medical Decision Making Level: 5 - High In summary, this is a 66 y/o gentleman with h/o liver cirrhosis secondary to EtOH and Hepatitis C, without any complications like ascites, GI bleeds or encephalopathy, who presents for evaluation and management of recurrent acute on chronic cholecystitis. I have reviewed all his imaging, laboratory studies and his history. I discussed with him all the therapeutic and diagnostic steps going forward. Given his history, he has an approximately 20% risk of ongoing/recurrent episodes of cholecystitis. His options include continued clinical monitoring/PRN ABX or surgery. Following a detailed discussion of the pros and cons of each approach - he chose to pursue the surgery route. I discussed with him nuances of the procedure and the expected course of recovery. We also discussed the risks, benefits and alternatives. He is aware that his risks are elevated compared to the normal population given his cirrhosis. We also discussed the potential complications as well. All questions and concerns were addressed. He showed good understanding and agreed to proceed. I am also going to refer him to Dr. Martin for technician terminal and repeater follow up of his liver disease and HCC surveillance. Sade Smith MD documented in this encounter [facility] 06-24-2022 Instructions Sade Smith MD - 06/24/2022 10:29 AM EST My office will call you with scheduling and details about your next appointments and tests. documented in this encounter [facility] 06-24-2022 Nurse Note Mid abdominal pain, bloating, increased gas and belching, nausea, diarrhea. Has had symptoms for a few months. documented in this encounter [facility] 05-06-2022 Miscellaneous Notes Spoke with patient. Given message from provider's office. Patient verbalizes understanding. Patient says he didn't receive a letter. Read letter to patient. This nurse gave patient name of surgeon, Sade Smith MD with office phone number (found on letter). He states he will contact their office to schedule. Jyoti Peter RN He was referred by Dr. Fuller to [facility] surgeon, they were not able to contact him to schedule and letter was sent. See phone encounter 04/15. Consult ordered 03/[address] Fuller, please assist patient with scheduling appointment Elis Hernandes APRN.PLODDING MACHINE OPERATOR Pt had OV: 05/04/22 Pt calls to report he had an appt with the kidney dr darion and was advised he does not have cancer in his kidneys like [facility] said he did. Pt is asking what he needs to do next about his gallbladder. Please review and advise. Irais Nolan LPN documented in this encounter [facility] 05-06-2022 Note HNO ID: [id number] Author: Marina Lema Jr., MD Service: ? Author Type: Physician Type: Progress Notes Filed: 05/06/2022 9:05 AM Note Text: NEW PATIENT HISTORY AND PHYSICAL EXAM PATIENT INFO: Alexandra Chacon 66 year old REFERRING PROVIDER: Data Unavailable PCP: Abdi Verdugo MD HPI Alexandra Chacon is a 66 year old male recently in hospital for pancreatitis and gall bladder issues. Someone believed he had renal mass. No renal mass seen on ct abdomen and pelvis with iv contrast. Feels well. Recovering from pancreatitis. No recent psa. No luts. On no prostate meds. Review of Systems Constitutional: Negative. Respiratory: Negative. Cardiovascular: Negative. Gastrointestinal: Negative. Genitourinary: Negative. Skin: Negative. Neurological: Negative. Psychiatric/Behavioral: Negative. LAB: Creatinine Date Value Ref Range Status 05/01/2022 0.94 0.73 - 1.22 mg/dL Final PSA (ng/mL) Date Value 05/15/2019 1.21 Glucose, Urine (no units) Date Value 04/29/2022 Negative Bilirubin, Urine (no units) Date Value 04/29/2022 Negative Ketones, Urine (no units) Date Value 04/29/2022 Negative Specific [place], Ur (no units) Date Value 04/29/2022 1.015 Hemoglobin/Blood,Ur (no units) Date Value 04/29/2022 Negative pH, Urine (no units) Date Value 04/29/2022 7.0 Protein, Urine (no units) Date Value 04/29/2022 Negative Nitrites (no units) Date Value 04/29/2022 Negative WBC, Urine (no units) Date Value 04/29/2022 0-5 /HPF MEDICATIONS: meloxicam (MOBIC) 15 mg tablet Take 1 tablet by mouth once daily. With food. fluticasone propion-salmeterol (AIRDUO RESPICLICK) 232-14 mcg/actuation Inhale 1 Puff as instructed twice daily. ketoconazole (NIZORAL) 2 % cream Apply to affected area once daily. Rash on right hernandez and ankle HYDROcodone-acetaminophen (NORCO) 5-325 mg per tablet Take 1 tablet by mouth every 6 hours as needed for pain for up to 5 days. metroNIDAZOLE (FLAGYL) 500 mg tablet Take 1 tablet by mouth three times daily for 7 days. cefdinir (OMNICEF) 300 mg capsule Take 1 capsule by mouth twice daily for 7 days. losartan (COZAAR) 50 mg tablet Take 1 tablet by mouth once daily. tiotropium bromide (SPIRIVA RESPIMAT) 2.5 mcg/actuation inhaler Inhale 2 Puffs as instructed once daily. albuterol HFA (PROVENTIL HFA, VENTOLIN HFA) 90 mcg/actuation inhaler Inhale 2 Puffs as instructed every 6 hours as needed for wheezing/shortness of breath. fluticasone (FLONASE) 50 mcg/actuation nasal spray Use 2 Sprays in each nostril once daily. omeprazole (PRILOSEC) 40 mg capsule Take 1 capsule by mouth once daily. levothyroxine (SYNTHROID) 125 mcg tablet Take 1 tablet by mouth once daily. triamcinolone (KENALOG) 0.025 % cream Apply 1 application to affected area twice daily. gabapentin (NEURONTIN) 300 mg capsule Take 1 capsule by mouth daily at bedtime for 180 days. hydrOXYchloroQUINE (PLAQUENIL) 200 mg tablet Take 1 tablet by mouth twice daily. HISTORIES PAST MEDICAL HISTORY Diagnosis Date Acute cholecystitis with acute cholangitis signed out AMA 02/23/2022 Acute pancreatitis, unspecified complication status, unspecified pancreatitis type 04/30/2022 Chronic obstructive pulmonary disease (HCC) 11/11/2018 Chronic rhinitis 11/11/2018 Depressive disorder 11/11/2018 Goes to [facility] Gastroesophageal reflux disease without esophagitis 11/11/2018 Hepatitis C virus carrier state (HCC) 05/15/2019 Hypothyroidism, unspecified 11/11/2018 Mass of left kidney enhancing on CT 02/23/2022 Restless legs 12/08/2021 Tubular adenoma of colon 09/05/2019 FAMILY HISTORY Problem Relation Age of Onset Thyroid Sister SOCIAL HISTORY Social History Tobacco Use Smoking status: Some Days Types: Cigarettes Last attempt to quit: 08/11/2018 Years since quittin.7 Smokeless tobacco: Former Types: Chew Tobacco comments: chews 2-3 cigarettes a day Vaping Use Vaping Use: Never used Substance Use Topics Alcohol use: Not Currently Comment: former alcoholic-quit 6 years ago Drug use: Not Currently PHYSICAL EXAMINATION Ht 180.3 cm (5' 11 ) Wt 87.1 kg (192 lb) BMI 26.78 kg/m? General appearance: Well appearing, alert, in no acute distress, and well-hydrated, well nourished Skin: Skin color, texture, turgor normal, no suspicious rashes or lesions Respiratory:+ effort Cardiovascular: Not examined GI: Normal abdominal exam, Abdomen soft, non-tender. No masses, organomegaly Musculoskeletal: normal ROM Neuro: No gross neurologic defecits Genitourinary: not examined ASSESSMENT: (Z12.5) Prostate cancer screening (primary encounter diagnosis) (N40.1, N13.8) BPH with obstruction/lower urinary tract symptoms PLAN: Psa Set for prn Marina Lema Jr, MD [facility] 05-04-2022 Note HNO ID: [id number] Author: Elena Case RN Service: ? Author Type: Registered Nurse Type: Progress Notes Filed: 05/04/2022 4:37 PM Note Text: TCM Home Visit Referral Source of Stratification: [facility] Admission Status: Discharged Readmission Risk Score: 15 SANJIV Score: 5 Patient meets program referral criteria: No Patient does not qualify for High Risk TCM Home Visit program due to: Discharged home, does not meet program criteria Elena Case RN May 04, 2022 4:31 PM TRANSITIONAL CARE MANAGEMENT (TCM) COMMUNITY MONITORING PROGRAM Provider Action/FYI: TCM, initial outreach Pt not called by TCM as he had apmnt w/ his PCP this morning re: his hospital admit on 04-29-22. Notes from that visit are on Epic, pt feels better. SUMMARY: Pt discharged from [facility] on 05-01-22. Admitted for: past medical history of COPD, GERD, hypothyroidism, depression, Hep C, cholecystitis/cholangitis (in [place], signed out AMA) who presents with 3 day history of worsening sharp epigastric and right upper quadrant pain which radiated to the back and prevents him from getting out of bed. The pain is associated with nausea but no vomiting. He reports dry heaves and retching. Patient denies fever, jaundice, weight loss but reports fatigue and chills. No bloody stools. Patient denies alcohol use, excessive NSAIDs use and hx of gallstones. Patient seen by GI and general surgery. Started on Rocephin and Flagyl IV. Lipase improved from 600's to normal overnight. Hx of possible gallstone pancreatitis. Will DC home on Omnicef and Flagyl for 7 days more. Per surgery: He presented similarly in February and was thought to have gallstone pancreatitis. Outpatient work up at that time was done by Dr. Fuller, who recommended that he follow up with Hepatob[facility] at [facility] for discussion of removal of his gallbladder. Outpatient follow up with urology for renal mass. Outreach ended [facility] 05-04-2022 History of Present illness Narrative TCM Home Visit Referral Source of Stratification: [facility] Admission Status: Discharged Readmission Risk Score: 15 SANJIV Score: 5 Patient meets program referral criteria: No Patient does not qualify for High Risk TCM Home Visit program due to: Discharged home, does not meet program criteria Elena Case RN May 04, 2022 4:31 PM TRANSITIONAL CARE MANAGEMENT (TCM) COMMUNITY MONITORING PROGRAM Provider Action/FYI: TCM, initial outreach Pt not called by TCM as he had apmnt w/ his PCP this morning re: his hospital admit on 04-29-22. Notes from that visit are on Epic, pt feels better. SUMMARY: Pt discharged from [facility] on 05-01-22. Admitted for: past medical history of COPD, GERD, hypothyroidism, depression, Hep C, cholecystitis/cholangitis (in [place], signed out AMA) who presents with 3 day history of worsening sharp epigastric and right upper quadrant pain which radiated to the back and prevents him from getting out of bed. The pain is associated with nausea but no vomiting. He reports dry heaves and retching. Patient denies fever, jaundice, weight loss but reports fatigue and chills. No bloody stools. Patient denies alcohol use, excessive NSAIDs use and hx of gallstones. Patient seen by GI and general surgery. Started on Rocephin and Flagyl IV. Lipase improved from 600's to normal overnight. Hx of possible gallstone pancreatitis. Will DC home on Omnicef and Flagyl for 7 days more. Per surgery: He presented similarly in February and was thought to have gallstone pancreatitis. Outpatient work up at that time was done by Dr. Fuller, who recommended that he follow up with [facility] at [facility] for discussion of removal of his gallbladder. Outpatient follow up with urology for renal mass. Outreach ended documented in this encounter [facility] 05-04-2022 Note Patient Outreach ([facility] ALEXANDRA CHACON ([id number]) 1955 M Date Time Provider Department 05/04/22 ELENA CASE During your visit today, we recorded the following information about you: Elena Case RN 05/04/2022 4:37 PM Signed TCM Home Visit Referral Source of Stratification: [facility] Admission Status: Discharged Readmission Risk Score: 15 SANJIV Score: 5 Patient meets program referral criteria: No Patient does not qualify for High Risk TCM Home Visit program due to: Discharged home, does not meet program criteria Elena Case RN May 04, 2022 4:31 PM TRANSITIONAL CARE MANAGEMENT (TCM) COMMUNITY MONITORING PROGRAM Provider Action/FYI: TCM, initial outreach Pt not called by TCM as he had apmnt w/ his PCP this morning re: his hospital admit on 04-29-22. Notes from that visit are on Epic, pt feels better. SUMMARY: Pt discharged from [facility] on 05-01-22. Admitted for: past medical history of COPD, GERD, hypothyroidism, depression, Hep C, cholecystitis/cholangitis (in [place], signed out AMA) who presents with 3 day history of worsening sharp epigastric and right upper quadrant pain which radiated to the back and prevents him from getting out of bed. The pain is associated with nausea but no vomiting. He reports dry heaves and retching. Patient denies fever, jaundice, weight loss but reports fatigue and chills. No bloody stools. Patient denies alcohol use, excessive NSAIDs use and hx of gallstones. Patient seen by GI and general surgery. Started on Rocephin and Flagyl IV. Lipase improved from 600's to normal overnight. Hx of possible gallstone pancreatitis. Will DC home on Omnicef and Flagyl for 7 days more. Per surgery: He presented similarly in February and was thought to have gallstone pancreatitis. Outpatient work up at that time was done by Dr. Fuller, who recommended that he follow up with Hepatobiliary at [facility] for discussion of removal of his gallbladder. Outpatient follow up with urology for renal mass. Outreach ended Allergies As of Date: 05/04/2022 (No Known Allergies) Date Reviewed: 05/04/2022 Reviewed by: Elis Hernandes APRN.PLODDING MACHINE OPERATOR - Fully Assessed Reason for Visit: Transition Of Care [4074] Cmt: TCM, initial call not made as pt saw his PCP this morning, dc from [facility] on 05-01-22 Prescriptions as of 05/04/2022 - meloxicam (MOBIC) 15 mg tablet Take 1 tablet by mouth once daily. With food. - fluticasone propion-salmeterol (AIRDUO RESPICLICK) 232-14 mcg/actuation Inhale 1 Puff as instructed twice daily. - ketoconazole (NIZORAL) 2 % cream Apply to affected area once daily. Rash on right hernandez and ankle - HYDROcodone-acetaminophen (NORCO) 5-325 mg per tablet Take 1 tablet by mouth every 6 hours as needed for pain for up to 5 days. - metroNIDAZOLE (FLAGYL) 500 mg tablet Take 1 tablet by mouth three times daily for 7 days. - cefdinir (OMNICEF) 300 mg capsule Take 1 capsule by mouth twice daily for 7 days. - losartan (COZAAR) 50 mg tablet Take 1 tablet by mouth once daily. - tiotropium bromide (SPIRIVA RESPIMAT) 2.5 mcg/actuation inhaler Inhale 2 Puffs as instructed once daily. - albuterol HFA (PROVENTIL HFA, VENTOLIN HFA) 90 mcg/actuation inhaler Inhale 2 Puffs as instructed every 6 hours as needed for wheezing/shortness of breath. - fluticasone (FLONASE) 50 mcg/actuation nasal spray Use 2 Sprays in each nostril once daily. - omeprazole (PRILOSEC) 40 mg capsule Take 1 capsule by mouth once daily. - levothyroxine (SYNTHROID) 125 mcg tablet Take 1 tablet by mouth once daily. - triamcinolone (KENALOG) 0.025 % cream Apply 1 application to affected area twice daily. - gabapentin (NEURONTIN) 300 mg capsule Take 1 capsule by mouth daily at bedtime for 180 days. - hydrOXYchloroQUINE (PLAQUENIL) 200 mg tablet Take 1 tablet by mouth twice daily. Problem List As Of Date 05/04/2022 Noted Resolved Depressive disorder [F32.A] 11/11/2018 Hypothyroidism, unspecified [E03.9] 11/11/2018 Chronic obstructive pulmonary disease (HCC) [J4*11/11/2018 Chronic rhinitis [J31.0] 11/11/2018 Gastroesophageal reflux disease without esophag*11/11/2018 Hepatitis C virus carrier state (HCC) [B18.2] 05/15/2019 Bilateral wrist pain [M25.531, M25.532] 08/24/2019 Tubular adenoma of colon [D12.6] 09/05/2019 Other cirrhosis of liver (HCC) [K74.69] 10/05/2019 Primary hypertension [I10] 12/08/2021 Restless legs [G25.81] 12/08/2021 Acute cholecystitis with acute cholangitis sign*02/23/2022 Mass of left kidney enhancing on CT [N28.89] 02/23/2022 Acute pancreatitis [K85.90] 04/29/2022 05/01/2022 Cholecystitis, chronic [K81.1] 04/29/2022 Acute pancreatitis, unspecified complication st*04/29/2022 05/01/2022 Encounter Status:Closed by ELENA CASE on 05/04/22 [facility] 05-04-2022 Note HNO ID: [id number] Author: Elis Hernandes APRN.PLODDING MACHINE OPERATOR Service: ? Author Type: Nurse Practitioner Type: Progress Notes Filed: 05/04/2022 10:23 AM Note Text: CC: Patient presents with: Recheck HPI Alexandra Chacon is a 66 year old male who presents today for above. Patient was admitted to from 03/02 to 03/05 for acute cholecystitis and signed out AMA. He was supposed to follow-up with [facility] general surgery regarding possible cholecystectomy but never scheduled. He ended up admitted again, this time to [facility] from 04/29-05/01 for acute biliary pancreatitis. Treated with IV antibiotics. General surgery recommended follow up with hepatobiliary for cirrhosis and need for cholecystectomy as an outpatient. Patient reports pain has markedly improved. Still has some epigastric discomfort and nausea. No new or worsening symptoms. He is scheduled tomorrow with urology for renal mass concerning for malignancy. Patient reports rash on the right hernandez present for more than two years . He has tried multiple OTC treatments and prescription cortisone without any improvement. Rash is itchy and scaly, has a couple other spots on his ankle that aren't as bad. REVIEW OF SYSTEMS GENERAL: Negative for malaise, significant weight loss and fever RESPIRATORY: Negative for cough, wheezing and shortness of breath CARDIOVASCULAR: Negative for chest pain, leg swelling and palpitations GI: Negative for blood in stools or black stools, diarrhea, heart burn, nausea, vomiting, decreased appetite PAST MEDICAL HISTORY Diagnosis Date Acute cholecystitis with acute cholangitis signed out AMA 02/23/2022 Acute pancreatitis, unspecified complication status, unspecified pancreatitis type 04/30/2022 Chronic obstructive pulmonary disease (HCC) 11/11/2018 Chronic rhinitis 11/11/2018 Depressive disorder 11/11/2018 Goes to [facility] Gastroesophageal reflux disease without esophagitis 11/11/2018 Hepatitis C virus carrier state (HCC) 05/15/2019 Hypothyroidism, unspecified 11/11/2018 Mass of left kidney enhancing on CT 02/23/2022 Restless legs 12/08/2021 Tubular adenoma of colon 09/05/2019 PAST SURGICAL HISTORY Procedure Laterality Date CARPAL TUNNEL Left 08/2018 COLSC FLX W/RMVL OF TUMOR POLYP LESION SNARE TQ 09/01/2019 EGD 09/01/2019 FACIAL RECONSTRUCTION SURGERY HX 2000 15 to 20 years ago ALLERGIES Patient has no known allergies. MEDICATIONS HYDROcodone-acetaminophen (NORCO) 5-325 mg per tablet Take 1 tablet by mouth every 6 hours as needed for pain for up to 5 days. metroNIDAZOLE (FLAGYL) 500 mg tablet Take 1 tablet by mouth three times daily for 7 days. cefdinir (OMNICEF) 300 mg capsule Take 1 capsule by mouth twice daily for 7 days. losartan (COZAAR) 50 mg tablet Take 1 tablet by mouth once daily. tiotropium bromide (SPIRIVA RESPIMAT) 2.5 mcg/actuation inhaler Inhale 2 Puffs as instructed once daily. albuterol HFA (PROVENTIL HFA, VENTOLIN HFA) 90 mcg/actuation inhaler Inhale 2 Puffs as instructed every 6 hours as needed for wheezing/shortness of breath. fluticasone (FLONASE) 50 mcg/actuation nasal spray Use 2 Sprays in each nostril once daily. omeprazole (PRILOSEC) 40 mg capsule Take 1 capsule by mouth once daily. levothyroxine (SYNTHROID) 125 mcg tablet Take 1 tablet by mouth once daily. triamcinolone (KENALOG) 0.025 % cream Apply 1 application to affected area twice daily. gabapentin (NEURONTIN) 300 mg capsule Take 1 capsule by mouth daily at bedtime for 180 days. meloxicam (MOBIC) 15 mg tablet Take 1 tablet by mouth once daily. With food. hydrOXYchloroQUINE (PLAQUENIL) 200 mg tablet Take 1 tablet by mouth twice daily. fluticasone propion-salmeteroL (AIRDUO RESPICLICK) 232-14 mcg/actuation aepb Inhale 1 Puff as instructed twice daily. FAMILY HISTORY Problem Relation Age of Onset Thyroid Sister Social History Tobacco Use Smoking status: Some Days Types: Cigarettes Last attempt to quit: 08/11/2018 Years since quittin.7 Smokeless tobacco: Former Types: Chew Tobacco comments: chews 2-3 cigarettes a day Vaping Use Vaping Use: Never used Substance Use Topics Alcohol use: Not Currently Comment: former alcoholic-quit 6 years ago Drug use: Not Currently PHYSICAL EXAM BP 138/88 (BP Site: Left Arm, BP Position: Sitting, BP Cuff Size: Large Adult) Pulse 88 Temp 36.1 ?C (97 ?F) Resp 18 Wt 88.5 kg (195 lb) BMI 27.21 kg/m? General Appearance: well appearing, in no acute distress, alert Lungs: Lungs clear to auscultation. No wheezing, rhonchi, rales. Heart: RRR without murmur, gallop, or rubs. No ectopy Abdomen: Abdomen soft, non-distended. Bowel sounds normal. Ext: trace LE edema, good distal pulses DATA REVIEWED: [facility] admission ASSESSMENT/PLAN: 1. Acute biliary pancreatitis, unspecified complication status - ICD9: 577.0, ICD10: K85.10 (primary diagnosis) Pain improved. Follow-up with general surgery as (more content not included)... [facility] 05-04-2022 Instructions Elis Hernandes APRN.CNP - 05/04/2022 8:49 AM EST Recombinant shingles vaccine (Shingrix) is recommended; 2 doses 2-6 months apart. Please read information, check with your insurance, and schedule vaccination at your local pharmacy. A prescription is not required. If you are certain you have coverage to receive this vaccine in the office, we can schedule this for you. documented in this encounter [facility] 05-04-2022 History of Present illness Narrative Images from the original note were not included. CC: Patient presents with: Recheck HPI Alexandra Chacon is a 66 year old male who presents today for above. Patient was admitted to from 03/02 to 03/05 for acute cholecystitis and signed out AMA. He was supposed to follow-up with [facility] general surgery regarding possible cholecystectomy but never scheduled. He ended up admitted again, this time to [facility] from 04/29-05/01 for acute biliary pancreatitis. Treated with IV antibiotics. General surgery recommended follow up with hepatobiliary for cirrhosis and need for cholecystectomy as an outpatient. Patient reports pain has markedly improved. Still has some epigastric discomfort and nausea. No new or worsening symptoms. He is scheduled tomorrow with urology for renal mass concerning for malignancy. Patient reports rash on the right hernandez present for more than two years . He has tried multiple OTC treatments and prescription cortisone without any improvement. Rash is itchy and scaly, has a couple other spots on his ankle that aren't as bad. REVIEW OF SYSTEMS GENERAL: Negative for malaise, significant weight loss and fever RESPIRATORY: Negative for cough, wheezing and shortness of breath CARDIOVASCULAR: Negative for chest pain, leg swelling and palpitations GI: Negative for blood in stools or black stools, diarrhea, heart burn, nausea, vomiting, decreased appetite PAST MEDICAL HISTORY Diagnosis Date Acute cholecystitis with acute cholangitis signed out AMA 02/23/2022 Acute pancreatitis, unspecified complication status, unspecified pancreatitis type 04/30/2022 Chronic obstructive pulmonary disease (HCC) 11/11/2018 Chronic rhinitis 11/11/2018 Depressive disorder 11/11/2018 [facility] Gastroesophageal reflux disease without esophagitis 11/11/2018 Hepatitis C virus carrier state (HCC) 05/15/2019 Hypothyroidism, unspecified 11/11/2018 Mass of left kidney enhancing on CT 02/23/2022 Restless legs 12/08/2021 Tubular adenoma of colon 09/05/2019 PAST SURGICAL HISTORY Procedure Laterality Date CARPAL TUNNEL Left 08/2018 COLSC FLX W/RMVL OF TUMOR POLYP LESION SNARE TQ 09/01/2019 EGD 09/01/2019 FACIAL RECONSTRUCTION SURGERY HX 2000 15 to 20 years ago ALLERGIES Patient has no known allergies. MEDICATIONS HYDROcodone-acetaminophen (NORCO) 5-325 mg per tablet Take 1 tablet by mouth every 6 hours as needed for pain for up to 5 days. metroNIDAZOLE (FLAGYL) 500 mg tablet Take 1 tablet by mouth three times daily for 7 days. cefdinir (OMNICEF) 300 mg capsule Take 1 capsule by mouth twice daily for 7 days. losartan (COZAAR) 50 mg tablet Take 1 tablet by mouth once daily. tiotropium bromide (SPIRIVA RESPIMAT) 2.5 mcg/actuation inhaler Inhale 2 Puffs as instructed once daily. albuterol HFA (PROVENTIL HFA, VENTOLIN HFA) 90 mcg/actuation inhaler Inhale 2 Puffs as instructed every 6 hours as needed for wheezing/shortness of breath. fluticasone (FLONASE) 50 mcg/actuation nasal spray Use 2 Sprays in each nostril once daily. omeprazole (PRILOSEC) 40 mg capsule Take 1 capsule by mouth once daily. levothyroxine (SYNTHROID) 125 mcg tablet Take 1 tablet by mouth once daily. triamcinolone (KENALOG) 0.025 % cream Apply 1 application to affected area twice daily. gabapentin (NEURONTIN) 300 mg capsule Take 1 capsule by mouth daily at bedtime for 180 days. meloxicam (MOBIC) 15 mg tablet Take 1 tablet by mouth once daily. With food. hydrOXYchloroQUINE (PLAQUENIL) 200 mg tablet Take 1 tablet by mouth twice daily. fluticasone propion-salmeteroL (AIRDUO RESPICLICK) 232-14 mcg/actuation aepb Inhale 1 Puff as instructed twice daily. FAMILY HISTORY Problem Relation Age of Onset Thyroid Sister Social History Tobacco Use Smoking status: Some Days Types: Cigarettes Last attempt to quit: 08/11/2018 Years since quittin.7 Smokeless tobacco: Former Types: Chew Tobacco comments: chews 2-3 cigarettes a day Vaping Use Vaping Use: Never used Substance Use Topics Alcohol use: Not Currently Comment: former alcoholic-quit 6 years ago Drug use: Not Currently PHYSICAL EXAM BP 138/88 (BP Site: Left Arm, BP Position: Sitting, BP Cuff Size: Large Adult) Pulse 88 Temp 36.1 C (97 F) Resp 18 Wt 88.5 kg (195 lb) BMI 27.21 kg/m General Appearance: well appearing, in no acute distress, alert Lungs: Lungs clear to auscultation. No wheezing, rhonchi, rales. Heart: RRR without murmur, gallop, or rubs. No ectopy Abdomen: Abdomen soft, non-distended. Bowel sounds normal. Ext: trace LE edema, good distal pulses DATA REVIEWED: [facility] admission ASSESSMENT/PLAN: 1. Acute biliary pancreatitis, unspecified complication status - ICD9: 577.0, ICD10: K85.10 (primary diagnosis) Pain improved. Follow-up with general surgery as advised 2. Rash and nonspecific skin eruption - ICD9: 782.1, ICD10: R21 Possibly fungal rash. Start ketoconazole cream, see orders. Use for 4 weeks and follow-up if rash persists, may need dermatology referral 3. Toenail fungus - ICD9: 110.1, ICD10: B35.1 Seen by podiatry for this last year, never followed up - CONSULT TO PODIATRY 4. Mass of left kidney enhancing on CT - ICD9: 593.9, ICD10: N28.89 Follow-up with urology as scheduled 5. Encounter for immunization - ICD9: V03.89, ICD10: Z23 - INFLUENZA SEASONAL QUADRIVALENT HIGH DOSE AGE 65+ Prescription instructions reviewed with patient as applicable. Potential red flag symptoms discussed with the patient. Reviewed appropriate action plan to take if red flag symptoms occur. Patient agreeable to treatment plan. Elis Hernandes APRN.CNP documented in this encounter [facility] 04-30-2022 Note HNO ID: [id number] Author: Adam Wheatley MD Service: Hospital Medicine Author Type: Physician Type: Progress Notes Filed: 04/30/2022 10:04 PM Note Text: DEPARTMENT OF HOSPITAL MEDICINE PROGRESS NOTE SERVICE DATE: 04/30/2022 SERVICE TIME: 12:06 PM Hospital Medicine/Primary Attending: Adam Wheatley MD NIGHT AND WEEKEND COVERAGE: MOLENA COVERAGE: Days: [phone], please page attending physician. Nights: [phone], please page [facility] Night coverage pager [phone]. Subjective INTERVAL HPI: Patient is feeling some better and is hungry. Would like to eat if he could. Minimal pain in the abdomen. Current Facility-Administered Medications Medication Dose Route Frequency iv contrast (radiology procedure) INTRAVENOUS DIRECTED PRN tiotropium bromide 2.5 mcg/actuation 2 Puff (SPIRIVA RESPIMAT) 2 Puff INHALATION DAILY gabapentin 300 mg cap(s) (NEURONTIN) 300 mg ORAL AT BEDTIME losartan 50 mg tab(s) (COZAAR) 50 mg ORAL DAILY hydrOXYchloroQUINE 200 mg tab(s) (PLAQUENIL) 200 mg ORAL BID albuterol HFA 90 mcg/actuation 2 Puff (PROVENTIL HFA, VENTOLIN HFA) 2 Puff INHALATION q 6 H PRN fluticasone-vilanterol 100-25 mcg/dose 1 Inhalation (BREO ELLIPTA) 1 Inhalation INHALATION DAILY pantoprazole 40 mg injection (PROTONIX) 40 mg INTRAVENOUS DAILY (6 AM) levothyroxine 125 mcg tab(s) (SYNTHROID) 125 mcg ORAL DAILY ondansetron orally disintegrating 4 mg tab(s) (ZOFRAN ODT) 4 mg ORAL q 6 H PRN Or ondansetron (PF) 4 mg injection (ZOFRAN) 4 mg INTRAVENOUS q 6 H PRN morphine 1-2 mg injection 1-2 mg INTRAVENOUS q 4 H PRN Objective PHYSICAL EXAM: BP 142/63 Pulse 63 Temp (Src) 97.7 (Oral) Resp 18 Ht 5' 10.984 (1.80m) Wt 195 lb 15.8 oz (88.9kg) SpO2 94% BMI 27.35 kg/(m2). O2 Therapy: Room Air Physical Exam Performed GENERAL: Alert, no distress, cooperative SKIN: Skin color, texture, turgor normal. No rashes or lesions. HEAD/SINUSES: No significant findings EYES: PERRLA, EOMI BACK: Back symmetric, Normal curvature, ROM normal, No CVAT. LUNGS: Lungs clear to auscultation, Good diaphragmatic excursion CARDIAC: Normal S1 and S2; no rubs, murmurs, or gallops ABDOMEN: Abdomen soft, non-tender, BS normal, No masses or organomegaly EXTREMITIES: Extremities normal, no deformities, edema, clubbing or skin discoloration. Good capillary refill., No ulcers NEURO: Cranial nerves II-XII intact PULSES: 2+ radial, 2+ carotid Lines, Drains, and Airways Line Duration Peripheral 04/29/221954 Right Forearm 20 Gauge <1 day Reviewed lines and needs to be continued: REASONS: Intravenous fluids DATA: Diagnostic tests reviewed for today's visit: Recent Labs 04/29/221934 WBC 5.89 RBC 4.93 HB 15.4 HCT 45.3 PLT 245 MCV 91.9 MCH 31.2 MPV 10.2 ABSNEUT 3.62 NEUTP 61.4 LYMPHP 26.1 MONOP 9.2 Recent Labs 04/29/221934 GLUC 93 NA 139 K 4.1 CHLOR 103 CO2 27 CREAT 1.05 BUN 18 ANION 9 CA 9.1 TPROT 7.1 ALB 4.3 TBILI 0.5 ALKPHOS 94 AST 79* ALT 94* Most recent imaging Assessment/Plan Problem List Acute pancreatitis POA: Yes Depressive disorder POA: Yes Hypothyroidism, unspecified POA: Yes Chronic obstructive pulmonary disease (HCC) POA: Yes Chronic rhinitis POA: Yes Gastroesophageal reflux disease without esophagitis POA: Yes Hepatitis C virus carrier state (HCC) POA: Yes Other cirrhosis of liver (HCC) POA: Yes Primary hypertension POA: Yes Cholecystitis, chronic POA: Yes Acute pancreatitis, unspecified complication status, unspecified pancreatitis type POA: Yes HOSPITAL COURSE: Alexandra Chacon is a 66 year old male presented with past medical history of COPD, GERD, hypothyroidism, depression, Hep C, cholecystitis/cholangitis (in Nov, signed out AMA) who presents with 3 day history of worsening sharp epigastric and right upper quadrant pain which radiated to the back and prevents him from getting out of bed. The pain is associated with nausea but no vomiting. He reports dry heaves and retching. Patient denies fever, jaundice, weight loss but reports fatigue and chills. No bloody stools. Patient denies alcohol use, excessive NSAIDs use and hx of gallstones. Principal Problem: Epigastric and RUQ pain Most likley 2/2 Acute pancreatitis R/O acute cholecystitis FROM CHART REVIEW : Patient had previous hospitalization at [facility]. March 02 - CT scan - small hiatal hernia..., mild pericholecystic ascites, prominent pericholecystic edema...no dilated common bile duct. 12 mm mid left kidney abnormal lesion. Small amount of pelvic fluid. WBC 15.2K, normal tbili/lipase/alkphos. March 03 - seen by surgery - rec'd cholecystotomy tube, HIDA scan - non visualization of gallbladder; TSH 97, Hep C reactive, T bili 1.3, WBC 12.1 March 04 - WBC 8.2k, alkphos 184, Tbili 2.3, ALT/AST - 77/139 March 05 - Tbili - 4.9, alkphos - 219, ALT/AST - 167/171; MRI pancreas - gallbladder stones and CBD s (more content not included)... [facility] 04-29-2022 Miscellaneous Notes Call placed to patient and provider message reviewed. Patient reluctantly willing to go to [facility]. Patient wanted this nurse to assure him that gallbladder would be removed if that was cause of pain. Notified patient that he needed to be evaluated and that care would be directed by ED providers. Patient verbalizes understanding and will have someone transport him to [facility]. Frieda Mcfadden RN He should go to the ER of his choice. Go to [facility] or [facility] since he had issues with . He may be having gangrenous cholecystitis. Dr. Fuller saw him and recommended consultation at [facility] for cholecystectomy. Patient calls to report severe abdominal pain radiates into chest. Episodes last 4 hours at a time and feels like a burning fire sensation. Nurse triage recommends ED Now. Patient reports he has been to the ED for this pain and he's not going back. Patient reports the pain is so bad he should just blow his brains out. Patient has thought of harming self but has no plan. No attempt at self harm. Patient not reporting if he access to a gun since stating above but then stating he wouldn't really harm himself. Suicide hotline number given to patient for further assistance if needed. Patient has appointment this afternoon with unnamed counselor. Patient has appointment on Wednesday with Elis and Wednesday with urology for kidney mass. Patient asking what he can do in the meantime for pain. Reason for Disposition [1] SEVERE pain (e.g., excruciating) AND [2] present > 1 hour Answer Assessment - Initial Assessment Questions 1. LOCATION: Middle of abdomen radiates up into the chest. Patient reports it feels like a burning fire. 2. RADIATION: Chest 3. ONSET: Months 4. SUDDEN: Gradual 5. PATTERN Intermittent, Usually lasting around 4 hours or until he vomits. 6. SEVERITY: - SEVERE (8-10): excruciating pain, doubled over, unable to do any normal activities Patient reports that the pain is a 20-30 there is no scale of 10 and someone better do something for this pain. Patient reports that the pain is so bad that he should just blow his brains out . Patient has no plan but doesn't report if he has access to a gun. Patient reports he wouldn't really harm himself. He has a counselor who he is going to see this afternoon. 7. RECURRENT SYMPTOM: Yes on-going for several months. Has been to the ER and Hospital they give him medication that lasts for awhile but the pain comes back. 8. AGGRAVATING FACTORS: Not answered. 9. CARDIAC SYMPTOMS: Chest pain, nausea and vomiting. 10. OTHER SYMPTOMS: No back pain, diarrhea, fever, urination pain. Protocols used: Abdominal Pain - [id number] documented in this encounter [facility] documented as of this encounter (statuses as of 05/04/2022) [facility]12-07-2022 History of Past illness Narrative* Problem Noted Date Resolved Date Acute pancreatitis 04/29/2022 05/01/2022 Acute pancreatitis, unspecif ied complication status, unspecified pancreatitis type 04/29/2022 05/01/2022 documented as of this encounter (statuses as of 05/04/2022) [facility] History of Past illness Narrative* Problem Noted Date Resolved Date Acute pancreatitis 04/29/2022 05/01/2022 Acute pancreatitis, unspecif ied complication status, unspecified pancreatitis type 04/29/2022 05/01/2022 documented as of this encounter (statuses as of 05/06/2022) [facility] History of Past illness Narrative* Problem Noted Date Resolved Date Acute pancreatitis 04/29/2022 05/01/2022 Acute pancreatitis, unspecif ied complication status, unspecified pancreatitis type 04/29/2022 05/01/2022 documented as of this encounter (statuses as of 06/25/2022) [facility] History of Past illness Narrative* Problem Noted Date Resolved Date Acute pancreatitis 04/29/2022 05/01/2022 Acute pancreatitis, unspecif ied complication status, unspecified pancreatitis type 04/29/2022 05/01/2022 documented as of this encounter (statuses as of 06/26/2022) [facility] History of Past illness Narrative* Problem Noted Date Resolved Date Acute pancreatitis 04/29/2022 05/01/2022 Acute pancreatitis, unspecif ied complication status, unspecified pancreatitis type 04/29/2022 05/01/2022 documented as of this encounter (statuses as of 07/03/2022) [facility] History of Past illness Narrative* Problem Noted Date Resolved Date Acute pancreatitis 04/29/2022 05/01/2022 Acute pancreatitis, unspecif ied complication status, unspecified pancreatitis type 04/29/2022 05/01/2022 documented as of this encounter (statuses as of 07/06/2022) [facility] History of Past illness Narrative* Problem Noted Date Resolved Date Acute pancreatitis 04/29/2022 05/01/2022 Acute pancreatitis, unspecif ied complication status, unspecified pancreatitis type 04/29/2022 05/01/2022 documented as of this encounter (statuses as of 07/09/2022) [facility] History of Past illness Narrative* Problem Noted Date Resolved Date Acute pancreatitis 04/29/2022 05/01/2022 Acute pancreatitis, unspecif ied complication status, unspecified pancreatitis type 04/29/2022 05/01/2022 documented as of this encounter (statuses as of 07/13/2022) [facility] History of Past illness Narrative* Problem Noted Date Resolved Date Acute pancreatitis 04/29/2022 05/01/2022 Acute pancreatitis, unspecif ied complication status, unspecified pancreatitis type 04/29/2022 05/01/2022 documented as of this encounter (statuses as of 07/21/2022) [facility] History of Past illness Narrative* Problem Noted Date Resolved Date Acute pancreatitis 04/29/2022 05/01/2022 Acute pancreatitis, unspecif ied complication status, unspecified pancreatitis type 04/29/2022 05/01/2022 documented as of this encounter (statuses as of 07/28/2022) [facility]12-07-2022 History of Past illness Narrative* Problem Noted Date Resolved Date Acute pancreatitis 04/29/2022 05/01/2022 Acute pancreatitis, unspecif ied complication status, unspecified pancreatitis type 04/29/2022 05/01/2022 documented as of this encounter (statuses as of 08/03/2022) [facility]12-07-2022 History of Past illness Narrative* Problem Noted Date Resolved Date Acute pancreatitis 04/29/2022 05/01/2022 Acute pancreatitis, unspecif ied complication status, unspecified pancreatitis type 04/29/2022 05/01/2022 documented as of this encounter (statuses as of 08/09/2022) [facility]12-07-2022 History of Past illness Narrative* Problem Noted Date Resolved Date Acute pancreatitis 04/29/2022 05/01/2022 Acute pancreatitis, unspecif ied complication status, unspecified pancreatitis type 04/29/2022 05/01/2022 documented as of this encounter (statuses as of 08/18/2022) [facility]12-07-20[facility] History of Past illness Narrative* Problem Noted Date Resolved Date Acute pancreatitis 04/29/2022 05/01/2022 Acute pancreatitis, unspecif ied complication status, unspecified pancreatitis type 04/29/2022 05/01/2022 documented as of this encounter (statuses as of 10/27/2022) [facility]12-07-2022 History of Past illness Narrative* Problem Noted Date Resolved Date Acute pancreatitis 04/29/2022 05/01/2022 Acute pancreatitis, unspecif ied complication status, unspecified pancreatitis type 04/29/2022 05/01/2022 documented as of this encounter (statuses as of 11/17/2022) [facility]-07-20[facility] History of Past illness Narrative* Problem Noted Date Resolved Date Acute pancreatitis 04/29/2022 05/01/2022 Acute pancreatitis, unspecif ied complication status, unspecified pancreatitis type 04/29/2022 05/01/2022 documented as of this encounter (statuses as of 11/19/2022) [facility]11-05-2022 NoteHNO ID: [id number] Author: Jacque Fuller MD Service: ? Author Type: Physician Type: Progress Notes Filed: 03/28/2022 8:29 PM Note Text: Alexandra Chacon 1955 REFERRING PHYSICIAN: Abdi Verdugo MD CHIEF COMPLAINT: Consult (gallbladder) HPI: The patient is a 66 year old male presents with emesis after eating for the past three months and epigastric abdominal pain. He was admitted to [facility] on March 02 for diagnosis of cholelithiasis, choledocholithiasis. He was treated with IV antibiotics and underwent numerous radiological studies. I have reviewed 54 pages of scanned documents from patient's hospitalization at [facility]. March 02 - CT scan - small hiatal hernia..., mild pericholecystic ascites..., prominent pericholecystic edema...,no dilated common bile duct. 12 mm mid left kidney abnormal lesion. Small amount of pelvic fluid. WBC 15.2K, normal tbili/lipase/alkphos. March 03 - seen by surgery - rec'd cholecystotomy tube, HIDA scan - non visualization of gallbladder; TSH 97, Hep C r reactive, T bili 1.3, WBC 12.1 March 04 - WBC 8.2k, alkphos 184, Tbili 2.3, ALT/AST - 77/139 March 05 - Tbili - 4.9, alkphos - 219, ALT/AST - 167/171; MRI pancreas - gallbladder stones and CBD stones. Ascites, liver cirrhosis, left renal mass suspicious for cancer; urology consultation obtained - patient refused further evaluation, signed out AMA - he was discharged on antibiotics Recent lab tests - 03/20 - alkphos 143, tbili/ALT/AST/WBC - normal, TSH 9.03 He also states that he ran out of medications and did not take his medications for a few months - thus elevated serum TSH. He denies jaundice or icterus. At present, he notes epigastric abdominal pain - 8 out of 10 on a scale of 1-10. He states that he is tolerating a regular diet and notes no appetite changes. He states that his bowel movements are normal - no melena/chalky colored stools. He denies fevers. PAST MEDICAL HISTORY Diagnosis Date Acute cholecystitis with acute cholangitis signed out AMA 02/23/2022 Chronic obstructive pulmonary disease (HCC) 11/11/2018 Chronic rhinitis 11/11/2018 Depressive disorder 11/11/2018 Goes to [facility] Gastroesophageal reflux disease without esophagitis 11/11/2018 Hepatitis C virus carrier state (HCC) 05/15/2019 Hypothyroidism, unspecified 11/11/2018 Mass of left kidney enhancing on CT 02/23/2022 Restless legs 12/08/2021 Tubular adenoma of colon 09/05/2019 PAST SURGICAL HISTORY Procedure Laterality Date CARPAL TUNNEL Left 08/2018 COLSC FLX W/RMVL OF TUMOR POLYP LESION SNARE TQ 09/01/2019 EGD 09/01/2019 FACIAL RECONSTRUCTION SURGERY HX 2000 15 to 20 years ago Current Outpatient Medications Medication Sig losartan (COZAAR) 50 mg tablet Take 1 tablet by mouth once daily. tiotropium bromide (SPIRIVA RESPIMAT) 2.5 mcg/actuation inhaler Inhale 2 Puffs as instructed once daily. albuterol HFA (PROVENTIL HFA, VENTOLIN HFA) 90 mcg/actuation inhaler Inhale 2 Puffs as instructed every 6 hours as needed for wheezing/shortness of breath. fluticasone (FLONASE) 50 mcg/actuation nasal spray Use 2 Sprays in each nostril once daily. omeprazole (PRILOSEC) 40 mg capsule Take 1 capsule by mouth once daily. levothyroxine (SYNTHROID) 125 mcg tablet Take 1 tablet by mouth once daily. triamcinolone (KENALOG) 0.025 % cream Apply 1 application to affected area twice daily. gabapentin (NEURONTIN) 300 mg capsule Take 1 capsule by mouth daily at bedtime for 180 days. meloxicam (MOBIC) 15 mg tablet Take 1 tablet by mouth once daily. With food. hydrOXYchloroQUINE (PLAQUENIL) 200 mg tablet Take 1 tablet by mouth twice daily. fluticasone propion-salmeteroL (AIRDUO RESPICLICK) 232-14 mcg/actuation aepb Inhale 1 Puff as instructed twice daily. ALLERGIES: Patient has no known allergies. PERSONAL HISTORY: Social History Tobacco Use Smoking status: Some Days Types: Cigarettes Last attempt to quit: 08/11/2018 Years since quittin.6 Smokeless tobacco: Former Types: Chew Tobacco comments: chews 2-3 cigarettes a day Vaping Use Vaping Use: Never used Substance Use Topics Alcohol use: Not Currently Comment: former alcoholic-quit 6 years ago Drug use: Not Currently FAMILY HISTORY: FAMILY HISTORY Problem Relation Age of Onset Thyroid Sister The review of systems data was entered by the nurse and reviewed by me Nursing Notes: Breanna PachecoKIRSTEN 03/27/2022 3:03 PM Signed REVIEW OF SYSTEMS: General: The patient NOTES fatigue, denies weight loss, notes weight gain, denies feeling hot, and denies feelings of cold. Eyes: The patient denies glaucoma, denies eye injury/surgery, wears glasses or contacts. Ear/Nose/Throat: The patient notes allergies, denies hayfever, denies ear infections, and denies bloody noses. Cardiovascular: The patient denies chest pain, denies heart disease, notes high blood pressure,denie (more content not included)...[facility]11-05-2022 History of Present illness Narrative* Jacque Fuller MD - 03/28/2022 7:20 PM EDT Alexandra Chacon 1955 REFERRING PHYSICIAN: Abdi Verdugo MD CHIEF COMPLAINT: Consult (gallbladder) HPI: The patient is a 66 year old male presents with emesis after eating for the past three months and epigastric abdominal pain. He was admitted to [facility] on March 02 for diagnosis of cholelithiasis, choledocholithiasis. He was treated with IV antibiotics and underwent numerous radiological studies. I have reviewed 54 pages of scanned documents from patient's hospitalization at [facility]. March 02 - CT scan - small hiatal hernia..., mild pericholecystic ascites..., prominent pericholecystic edema...,no dilated common bile duct. 12 mm mid left kidney abnormal lesion. Small amount ofpelvic fluid. WBC 15.2K, normal tbili/lipase/alkphos. March 03 - seen by surgery - rec'd cholecystotomy tube, HIDA scan - non visualization of gallbladder; TSH 97, Hep C r reactive, T bili 1.3, WBC 12.1 March 04 - WBC 8.2k, alkphos 184, Tbili 2.3, ALT/AST - 77/139 March 05 - Tbili - 4.9, alkphos - 219, ALT/AST - 167/171; MRI pancreas - gallbladder stones and CBD stones. Ascites, liver cirrhosis, left renal mass suspicious for cancer; urology consultation obtained - patient refused further evaluation, signed out AMA - he was discharged on antibiotics Recent lab tests - 03/20 - alkphos 143, tbili/ALT/AST/WBC - normal, TSH 9.03 He also states that he ran out of medications and did not take his medications for a few months -thus elevated serum TSH. He denies jaundice or icterus. At present, he notes epigastric abdominal pain - 8 out of 10 on a scale of 1-10. He states that he is tolerating a regular diet and notes no appetite changes. He states that his bowel movements are normal - no melena/chalky colored stools. He denies fevers. PAST MEDICAL HISTORY Diagnosis Date Acute cholecystitis with acute cholangitis signed out AMA 02/23/2022 Chronic obstructive pulmonary disease (HCC) 11/11/2018 Chronic rhinitis 11/11/2018 Depressive disorder 11/11/2018 [facility] Gastroesophageal reflux disease without esophagitis 11/11/2018 Hepatitis C virus carrier state (HCC) 05/15/2019 Hypothyroidism, unspecified 11/11/2018 Mass of left kidney enhancing on CT 02/23/2022 Restless legs 12/08/2021 Tubular adenoma of colon 09/05/2019 PAST SURGICAL HISTORY Procedure Laterality Date CARPAL TUNNEL Left 08/2018 COLSC FLX W/RMVL OF TUMOR POLYP LESION SNARE TQ 09/01/2019 EGD 09/01/2019 FACIAL RECONSTRUCTION SURGERY HX 1999 15 to 20 years ago Current Outpatient Medications Medication Sig losartan (COZAAR) 50 mg tablet Take 1 tablet by mouth once daily. tiotropium bromide (SPIRIVA RESPIMAT) 2.5 mcg/actuation inhaler Inhale 2 Puffs as instructed once daily. albuterol HFA (PROVENTIL HFA, VENTOLIN HFA) 90 mcg/actuation inhaler Inhale 2 Puffs as instructed every 6 hours as needed for wheezing/shortness of breath. fluticasone (FLONASE) 50 mcg/actuation nasal spray Use 2 Sprays in each nostril once daily. omeprazole (PRILOSEC) 40 mg capsule Take 1 capsule by mouth once daily. levothyroxine (SYNTHROID) 125 mcg tablet Take 1 tablet by mouth once daily. triamcinolone (KENALOG) 0.025 % cream Apply 1 application to affected area twice daily. gabapentin (NEURONTIN) 300 mg capsule Take 1 capsule by mouth daily at bedtime for 180 days. meloxicam (MOBIC) 15 mg tablet Take 1 tablet by mouth once daily. With food. hydrOXYchloroQUINE (PLAQUENIL) 200 mg tablet Take 1 tablet by mouth twice daily. fluticasone propion-salmeteroL (AIRDUO RESPICLICK) 232-14 mcg/actuation aepb Inhale 1 Puff as instructed twice daily. ALLERGIES: Patient has no known allergies. PERSONAL HISTORY: Social History Tobacco Use Smoking status: Some Days Types: Cigarettes Last attempt to quit: 08/11/2018 Years since quittin.6 Smokeless tobacco: Former Types: Chew Tobacco comments: chews 2-3 cigarettes a day Vaping Use Vaping Use: Never used Substance Use Topics Alcohol use: Not Currently Comment: former alcoholic-quit 6 years ago Drug use: Not Currently FAMILY HISTORY: FAMILY HISTORY Problem Relation Age of Onset Thyroid Sister The review of systems data was entered by the nurse and reviewed by ia Nursing Notes: Breanna Pacheco LPN 03/27/2022 3:03 PM Signed REVIEW OF SYSTEMS: General: The patient NOTES fatigue, denies weight loss, notes weight gain, denies feeling hot, and denies feelings of cold. Eyes: The patient denies glaucoma, denies eye injury/surgery, wears glasses or contacts. Ear/Nose/Throat: The patient notes allergies, denies hayfever, denies ear infections, and denies bloody noses. Cardiovascular: The patient denies chest pain, denies heart disease, notes high blood pressure,denies cardiac stent, denies prior heart attack, denies irregular heart beat, denies high cholesterol, denies poor circulation, denies heart failure, other cardiac issues, denies claudication, denies coldfeet, denies peripheral arterial stent. Respiratory: The patient denies tuberculosis, denies pneumonia, denies frequent cough, denies pulmonary embolism, denies shortness of breath, and notes coughing up blood, notes COPD Gastrointestinal: The patient denies difficulty swallowing, notes acid reflux, denies ulcers, denies vomiting, denies jaundice/hepatitis, denies gallbladder problems, denies black or tarry stools, denies hemorrhoids, denies bleeding from rectum, denies diverticulitis, denies constipation, notes diarrhea, denies loss of stool control, and denies hernias. Kidney/Bladder: The patient denies kidney stones, denies urine infections, and denies bloody urine. Skin: The patient denies a history of skin cancer, denies bleeding/changing moles, and notes a history of skin rash. Neurologic: The patient denies a history of epilepsy/convulsions, denies headaches, denies head/spinal injuries, and denies stroke/TIA. Psychiatric: The patient denies psychiatric medications, notes depression, and notes voices, deniessubstance abuse. Endocrine: The patient notes thyroid disorders, denies diabetes, and denies hormonal problems. Hematologic: The patient denies a history of bruising, denies bleeding, and denies anemia, denies blood clots. Infections: The patient denies a history of measles and mumps, denies rheumatic fever, and denies sexually transmitted diseases. Musculoskeletal: The patient denies back pain/injury, denies back problems, denies sciatica, notes knee/foot trouble, notes arthritis, or denies gout. When was patient's last Mammogram screening? N/A Last Colonoscopy: 2019 Breanna Pacheco LPN PHYSICAL EXAMINATION: General: The patient is 66 year old male, well nourished, well hydrated in no acute distress. The patient is oriented to time, place, and person. VITALS: Blood pressure 150/90, pulse 98, temperature 36.3 C (97.3 F), height 180.3 cm (5' 11 ), weight 89.8 kg (198 lb), SpO2 99 %. Body mass index is 27.62 kg/m . Head: Normal cephalic, atraumatic Eyes: pupils are equally round, sclera are clear/anicteric, wearing glasses Neck is supple with no tracheal deviation Respiratory: Normal respiratory excursion and pattern. Abdominal exam: benign Extremities: no clubbing, cyanosis or edema. Neuro: non focal Psych: normal mood Assessment IMPRESSION: cholelithiasis known liver cirrhosis PLAN: I have discussed the above with the patient. I have discussed laparoscopic cholecystectomy, possible cholangiograms.. I have explained the procedure to the patient. I have counseled the patient as to the risks of the procedure, including but not limited to: infection, bleeding, injury to any blood vessels/nerves, scar tissue, injury to any intrabdominal organs, injury to bowel/bladder, injury to the common bile duct/biliary tree, bile leakage, intraabdominal abscess/bleeding, hernias at incisional sites, wound infections, complications of anesthesia, etc. - the patient understands. However, the patient has multiple medical problems - his TSH is elevated at 9, for which anesthesiawould preclude surgery at this point in time. He also has known liver cirrhosis with ascites - he has not followed up with GI medicine in 2 years. I will refer patient to [facility] for consideration of gallbladder surgery. The patient acknowledges above. I have answered all questions to the patient s satisfaction and the patient has no further questions. I have confirmed and edited as necessary, the PFSH and ROS obtained by others. Consultation requested by Dr. Abdi Verdugo for an opinion regarding patient's abdominal pain and gallbladder disease. My final recommendations will be communicated back to the requesting physician by way of shared Medical record or letter to requesting physician via [place] mail. . Diagnoses: (K81.0, K83.09) Acute cholecystitis with acute cholangitis signed out AMA (K70.31) Alcoholic cirrhosis of liver with ascites (HCC) (R79.89) Elevated TSH (N28.89) Kidney mass I spent a total of 55 minutes on the date of the service which included preparing to see the patient with review of any pertinent laboratory studies/radiological imaging/medical records from other medical facilities, [id number] patient care, obtaining oral medical [facility] the [facility], performing a medically appropriate examination, counseling and educating the patient/family/caregiver, and ordering and/or scheduling of medications/tests/procedures, and completing appropriate medical documentation. Jacque Fuller MD documented [facility] Miscellaneous Notes* Telephone Encounter - Thu Richards - 03/27/2022 4:55 PM EDT 1st attempt. Called patient to schedule for Urology Consult for Apr.27. Needs Surgeon. Thu Richards documented in this encounterW[facility]11-[facility] Nurse Note* Breanna PachecoKIRSTEN - 03/27/2022 3:01 PM EDT REVIEW OF SYSTEMS: General: The patient NOTES fatigue, denies weight loss, notes weight gain, denies feeling hot, and denies feelings of cold. Eyes: The patient denies glaucoma, denies eye injury/surgery, wears glasses or contacts. Ear/Nose/Throat: The patient notes allergies, denies hayfever, denies ear infections, and denies bloody noses. Cardiovascular: The patient denies chest pain, denies heart disease, notes high blood pressure,denies cardiac stent, denies prior heart attack, denies irregular heart beat, denies high cholesterol, denies poor circulation, denies heart failure, other cardiac issues, denies claudication, denies coldfeet, denies peripheral arterial stent. Respiratory: The patient denies tuberculosis, denies pneumonia, denies frequent cough, denies pulmonary embolism, denies shortness of breath, and notes coughing up blood, notes COPD Gastrointestinal: The patient denies difficulty swallowing, notes acid reflux, denies ulcers, denies vomiting, denies jaundice/hepatitis, denies gallbladder problems, denies black or tarry stools, denies hemorrhoids, denies bleeding from rectum, denies diverticulitis, denies constipation, notes diarrhea, denies loss of stool control, and denies hernias. Kidney/Bladder: The patient denies kidney stones, denies urine infections, and denies bloody urine. Skin: The patient denies a history of skin cancer, denies bleeding/changing moles, and notes a history of skin rash. Neurologic: The patient denies a history of epilepsy/convulsions, denies headaches, denies head/spinal injuries, and denies stroke/TIA. Psychiatric: The patient denies psychiatric medications, notes depression, and notes voices, deniessubstance abuse. Endocrine: The patient notes thyroid disorders, denies diabetes, and denies hormonal problems. Hematologic: The patient denies a history of bruising, denies bleeding, and denies anemia, denies blood clots. Infections: The patient denies a history of measles and mumps, denies rheumatic fever, and denies sexually transmitted diseases. Musculoskeletal: The patient denies back pain/injury, denies back problems, denies sciatica, notes knee/foot trouble, notes arthritis, or denies gout. When was patient's last Mammogram screening? N/A Last Colonoscopy: 2019 Breanna Pacheco LPN documented in this encounterW[facility]10-28-[facility]22 NoteHNO ID: [id number] Author: Abdi Verdugo MD Service: ? Author Type: Physician Type: Progress Notes Filed: 03/20/2022 9:42 AM Note Text: This note was created using wavecatchriter. Subjective Patient presents with: Hospital F/U Alexandra Chacon is a 66 year old male was supposed to have his wellness today, but preferred follow up of his hospital stay at . He was admitted 03/02-03/05 for acute cholecystitis. Incidental finding was an enhancing mass 11mm of the left kidney. He had CT scans of the abdomen and pelvis, CT scan of the kidney, and MRI of the pancreas. He signed out AMA with discussions about surgery. He was sent home on antibiotics. His abdominal pain was better but still present. Review of Systems Constitutional: Negative for appetite change, chills, fever and unexpected weight change. HENT: Negative. Respiratory: Negative for cough and shortness of breath. Cardiovascular: Negative. Gastrointestinal: Positive for abdominal pain. Negative for diarrhea, nausea and vomiting. Genitourinary: Negative. Neurological: Negative. ACTIVE PROBLEM LIST Depressive Disorder Hypothyroidism, Unspecified Chronic Obstructive Pulmonary Disease (Hcc) Chronic Rhinitis Gastroesophageal Reflux Disease Without Esophagitis Hepatitis C Virus Carrier State (Hcc) Bilateral Wrist Pain Tubular Adenoma of Colon Other Cirrhosis of Liver (Hcc) Primary Hypertension Restless Legs Acute cholecystitis with acute cholangitis signed out AMA Mass of left kidney enhancing on CT Current Outpatient Medications Medication Sig losartan (COZAAR) 50 mg tablet Take 1 tablet by mouth once daily. tiotropium bromide (SPIRIVA RESPIMAT) 2.5 mcg/actuation inhaler Inhale 2 Puffs as instructed once daily. albuterol HFA (PROVENTIL HFA, VENTOLIN HFA) 90 mcg/actuation inhaler Inhale 2 Puffs as instructed every 6 hours as needed for wheezing/shortness of breath. fluticasone (FLONASE) 50 mcg/actuation nasal spray Use 2 Sprays in each nostril once daily. omeprazole (PRILOSEC) 40 mg capsule Take 1 capsule by mouth once daily. levothyroxine (SYNTHROID) 125 mcg tablet Take 1 tablet by mouth once daily. triamcinolone (KENALOG) 0.025 % cream Apply 1 application to affected area twice daily. gabapentin (NEURONTIN) 300 mg capsule Take 1 capsule by mouth daily at bedtime for 180 days. meloxicam (MOBIC) 15 mg tablet Take 1 tablet by mouth once daily. With food. hydrOXYchloroQUINE (PLAQUENIL) 200 mg tablet Take 1 tablet by mouth twice daily. fluticasone propion-salmeteroL (AIRDUO RESPICLICK) 232-14 mcg/actuation aepb Inhale 1 Puff as instructed twice daily. No current facility-administered medications for this visit. Objective BP 144/82 (BP Site: Left Arm, BP Position: Sitting, BP Cuff Size: Large Adult) Pulse 78 Resp 16 Ht 177.8 cm (5' 10 ) Wt 90.3 kg (199 lb) BMI 28.55 kg/m? Physical Exam Constitutional: General: He is not in acute distress. Appearance: He is not ill-appearing or diaphoretic. HENT: Head: Normocephalic. Eyes: General: No scleral icterus. Conjunctiva/sclera: Conjunctivae normal. Cardiovascular: Rate and Rhythm: Normal rate and regular rhythm. Heart sounds: No murmur heard. No gallop. Pulmonary: Effort: No respiratory distress. Breath sounds: Wheezing present. No rales. Abdominal: General: Bowel sounds are normal. There is no distension. Palpations: Abdomen is soft. There is no mass. Tenderness: There is abdominal tenderness in the right upper quadrant and epigastric area. There is no guarding or rebound. Musculoskeletal: Right lower leg: No edema. Left lower leg: No edema. Neurological: Mental Status: He is alert. Gait: Gait normal. Assessment and Plan 1. Acute cholecystitis with acute cholangitis signed out AMA - ICD9: 575.0, 576.1, ICD10: K81.0, K83.09 (primary diagnosis) Recheck labs. Antibiotic if leukocytosis found. - CBC - COMP METABOLIC PANEL - CONSULT TO GENERAL SURGERY 2. Mass of left kidney enhancing on CT - ICD9: 593.9, ICD10: N28.89 - LD LACTATE DEHYDRO - CONSULT TO UROLOGY 3. Hypothyroidism, unspecified type - ICD9: 244.9, ICD10: E03.9 - continue current dose of Synthroid - TSH BLD 4. Primary hypertension - ICD9: 401.9, ICD10: I10 - poor control - LOSARTAN 50 MG TABLET. Dose increased. Patient indicated understanding and willingness to follow recommendations. Abdi Verdugo, [facility]10-26-2022 Miscellaneous Notes* Telephone Encounter - Mau Silverio Ma - 03/18/2022 1:53 PM EDT Records received and scanned in [facility] 03/17/2022 * Telephone Encounter - Mau Silverio Ma - 03/16/2022 4:16 PM EDT Nothing currently received in office. Records request faxed. Mau Silverio Ma * Telephone Encounter - Brigida Gonzalez RN - 03/16/2022 12:23 PM EDT Patient calls and states that he was admitted [facility] a couple of weeks ago. Patient asking if provider received the hospital notes. Brigida Gonzalez RN documented in this [facility] NoteHistory of Present Illness: Admission Reason: Right upper quadrant pain HPI: ALEXANDRA CHACON is a 66 year old Male With past medical history of hypertension, hypothyroidism, rheumatoid arthritis, end-stage liver disease, cirrhosis with ascites, history of hepatitis C presents with complaints of right upper quadrant pain.. Patient says this pain was there for the last 4 to 5 months. He had some upper abdominal symptoms like right upper quadrant and epigastric pain, nausea and vomiting after consuming food. He was been throwing up after eating that gave him the relief of pain. But this pain has worsened since yesterday. He developed fever and started to throw up. He also had some chills. He had couple episodes of diarrhea before this onset. He says he is sore all over his body and has a headache. Patient says that he has noticed recent weight changes and is appetite is okay but is unable to eat because of the fear of pain and vomiting. On arrival to the floor patient vitals are stable. He appears in mild distress from pain. Severe tenderness in his right upper quadrant and epigastric region. On arrival in the ER patient had a blood pressure of 135/93 mmHg, heart rate 81/min, respirate 16/min saturating 97% on room air. Initial investigation showed WBC 15.2, hemoglobin 17.9, MCV 94, platelet count 302, absolute neutrophil count 11.25, sodium 132, potassium 4.5, chloride 94, bicarb 30, anion gap 16, BUN 16, creatinine 1.31-I am unable to see at baseline, ALP 80 ALT 30, AST 60, lipase 22, troponin 5, UA positive for protein, CT abdomen pelvis with IV contrast showed pericholecystic edema. There is also concern for hyperemia of cystic duct and proximal extrahepatic biliary ducts. Mild perihepatic ascites and adjacent splenic ascites and small amount of free fluid in the pelvis. An indeterminate lesion in the mid left kidney follow-up with CT renal protocol was recommended 10 systems were reviewed and were negative except for those noted in the history of present illness. Problem list reviewed. Past medical history: Hypertension, hypothyroidism, rheumatoid arthritis, stage IV liver disease, hepatitis C, GERD Past surgical history: Hand surgery, colonoscopy, Family history: Not significant to current presentation Social History: Current smoker, ex ex alcoholic quit 8 years ago, has 4 kids Allergies: No known drug allergies Comorbidities: Comorbidites: Comorbid Conditionshypertension Social History: Social History: Smoking Statusmoderate user (uses 11-30 cig/day, OR 0.5-1.5 ppd, OR 2-3 cans/pouches loose leaf tobacco per week, OR 0.5-1.5 vape pods per day) (1) Alcohol Usehistory of abuse(1) Drug Usedenies (1) Allergies: No Known Allergies: Medications Prior to Admission: ProAir HFA 90 mcg/inh inhalation aerosol: 2 puff(s) inhaled every 6 hours, As Needed omeprazole 40 mg oral delayed release capsule: 1 cap(s) orally 2 times a day gabapentin 100 mg oral capsule: 2 cap(s) orally once a day hydroxychloroquine 200 mg oral tablet: 1 tab(s) orally 2 times a day levothyroxine 175 mcg (0.175 mg) oral tablet: 1 tab(s) orally once a day Flonase 50 mcg/inh nasal spray: 1 spray(s) in each nostril once a day, As Needed - for allergy symptoms amLODIPine 5 mg oral tablet: 1 tab(s) orally once a day meloxicam 7.5 mg oral tablet: 1 tab(s) orally 2 times a day. Objective: Objective Information: T PRBPMAPSpO2 [id number]/9195% Date/Time03/02 15: 19: 19: 19: 19:30 Range(37.1C - 37.1C ) (74 - 81 ) (16 - 16 ) (135 - 147 )/ (89 - 93 ) (95% - 97% ) Highest temp of 37.1 C was recorded at 03/02 15:36 Pain reported at 03/02 18:30: 5 = Moderate Physical Exam by System: Constitutional: Awake alert and oriented in mild distress Eyes: PERRL, EOMI, clear sclera ENMT: mucous membranes moist, no apparent injury, no lesions seen Head/Neck: Neck supple, no apparent injury, thyroid without mass or tenderness, No JVD, trachea midline, no bruits Respiratory/Thorax: Patent airways, CTAB, normal breath sounds with good chest expansion, thorax symmetric Cardiovascular: Regular, rate and rhythm, no murmurs, 2+ equal pulses of the extremities, normal S 1and S 2 Gastrointestinal: Belly mildly distended, severe epigastric and right upper quadrant tenderness elicited. Guarding elicited, bowel sounds heard Musculoskeletal: ROM intact, no joint swelling, normal strength Extremities: normal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
--- NOTE | 2023-06-07 22:26 | US_ITS ---
STUDY: VENOUS DOPPLER ULTRASOUND - RIGHT LOWER EXTREMITY REASON FOR EXAM: Male, 67 years old. RT LEG REDNESS/ SWELLLING TECHNIQUE: Ultrasound evaluation of the deep vein system to include villanueva-scale imaging and compression was performed. Villanueva-scale imaging and Doppler sonographic evaluation, including duplex spectral analysis and qualitative color flow sonography, was performed. COMPARISON: None. FINDINGS: Common Femoral Vein: Normal compression, spontaneity and augmentation. Normal color Doppler. Common Femoral Vein/Greater Saphenous Junction: Normal compression, spontaneity and augmentation. Normal color Doppler. Deep Femoral Vein: Normal compression, spontaneity and augmentation. Normal color Doppler. Femoral Proximal: Normal compression, spontaneity and augmentation. Normal color Doppler. Femoral Middle: Normal compression, spontaneity and augmentation. Normal color Doppler. Femoral Distal: Normal compression, spontaneity and augmentation. Normal color Doppler. Popliteal Vein: Normal compression, spontaneity and augmentation. Normal color Doppler. Posterior Tibial Vein: Normal compression, spontaneity and augmentation. Normal color Doppler. Peroneal Vein: Normal compression, spontaneity and augmentation. Normal color Doppler. There is no demonstrated deep venous thrombosis. US/Venous Duplex Imag/Limited/Uni IMPRESSION: Normal venous Doppler ultrasound of the right lower extremity. Electronically Signed: Kaylene Mayer MD at 23:18 EST ,
[2023-06-07 23:15] LABS: Absolute Lymphocyte Count 2.15 X10^3/uL (0.83-4.51); Absolute Neutrophil Count 4.9 X10^3/uL (2.0-7.7); Basophil# 0.06 X10^3/uL; Basophil% 0.7 % (0-1); Eosinophils% 2.4 % (0-5); Hematocrit 43.9 % (40-54); Hemoglobin 14.6 g/dL (13.0-16.5); Lymphocyte # 2.15 X10^3/ul (0.83-4.51); Lymphocyte % 25.9 % (19-41); Mean Corp Hgb Conc 33.3 g/dL (32-36); Mean Corpuscular Hgb 30.6 pg (27.0-32.0); Mean Platelet Vol. 10.6 fl (6.2-12.0); Monocyte# 0.96 X10^3/uL; Monocyte% 11.6 % (0-10); NRBC Flagged by Analyzer 0 % (0-5); Neutrophil # 4.91 X10^3/uL (2.7-7.7); Neutrophil % 59.2 % (47-70); Platelet Count 228 K/mm3 (150-450); RBC Distribution Width CV 12.8 % (11.6-14.6); RBC Distribution Width SD 43.3 fl (35.1-43.9); Red Blood Count 4.77 M/mm3 (4.6-6.2); White Blood Count 8.3 K/mm3 (4.4-11.0)
[2023-06-07] MEDS: Vancomycin HCl 1,500 MG in 0.9% Normal Saline (500mL Bag) 500 ML 250 MG IV (23:15)
[2023-06-07 23:41] LABS: Anion Gap 6 (5-15); BUN 14 mg/dL (7-18); BUN/Creat Ratio 14.3 RATIO (10-20); Calcium,Total 8.8 mg/dL (8.5-10.1); Chloride 102 mmol/L (98-107); Creatinine, Serum 0.98 mg/dL (0.70-1.30); EST Glomerular Filtration Rate 81 mL/min (>60); Est Glom Filt Rate - Afr Amer 98 mL/min (>60); Glucose 110 mg/dL (74-106); Potassium 3.5 mmol/L (3.5-5.1); Sodium Level 135 mmol/L (136-145)
[2023-06-08] VITALS: BP 132/78; PULSE 87; RESP 16; O2SAT 96
--- NOTE | 2023-06-08 00:29 | EX.ED.DYSGE1 ---
HPI History of Present Illness Chief Complaint: Edema Informant: patient Narrative Narrative: Patient is a 67-year-old male with past medical history of hepatitis C hypothyroidism and COPD. 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 He states that there has been no repeat trauma but in the last few days he has noticed right leg redness swelling and pain. He states he took a few penicillin pills that he had at home and he feels like there has been mild improvement. He denies any fevers or chills he denies any chest pain or shortness of breath but secondary to the persistent swelling and concern for infection he comes in for evaluation. Patient also denies any recent travel surgery or history of DVT/PE [facility] Medical History (Updated 06/09/23 @ 01:[address] Christopher Andrade, ) Carpal tunnel syndrome on both sides Chest pain COPD (chronic obstructive pulmonary disease) GERD (gastroesophageal reflux disease) Johnathan's disease Hepatitis C Hypothyroid Suspected sleep apnea Tobacco abuse Home Medications albuterol sulfate 90 mcg/actuation aerosol inhaler (ProAir HFA) 2 puff inhalation Q4H PRN COPD 01/13/18 [History Last Taken 09/21/18] fluticasone furoate 100 mcg-vilanterol 25 mcg/dose inhalation powder (Breo Ellipta) 1 inh inhalation DAILY COPD 01/13/18 [History Last Taken Unknown] fluticasone propionate 50 mcg/actuation nasal spray,suspension 1 spray intranasal DAILY BREATHING 01/13/18 [History Last Taken Unknown] levothyroxine 125 mcg capsule 125 mcg PO DAILY THYROID 01/13/18 [History Last Taken 09/21/18] omeprazole 40 mg capsule,delayed release 40 mg PO DAILY GERD 01/13/18 [History Last Taken 09/21/18] tiotropium bromide 2.5 mcg/actuation mist for inhalation (Spiriva Respimat) 2 puff inhalation DAILY COPD 01/13/18 [History Last Taken Unknown] trazodone 50 mg tablet 50 mg PO QHS PRN Sleep 07/18/18 [History Last Taken Unknown] divalproex 500 mg tablet,delayed release (Depakote) 500 mg PO QHS 09/06/18 [History Last Taken Unknown] aspirin 81 mg tablet,delayed release (Aspir-Low) 81 mg PO DAILY [facility] 09/16/18 [History Last Taken 09/21/18] budesonide-formoterol HFA 160 mcg-4.5 mcg/actuation aerosol inhaler (Symbicort) 2 puff inhalation BID COPD 09/16/18 [History Last Taken Unknown] divalproex 500 mg tablet,extended release 24 hr 500 mg PO DAILY 02/04/19 [History Last Taken Unknown] gabapentin 100 mg capsule 100 mg PO BIDCM 08/14/20 [History Last Taken Unknown] clindamycin HCl 300 mg capsule 300 mg PO 4X/DAY 10 days #40 caps 06/08/23 [Rx Last Taken Unknown] oxycodone-acetaminophen 5 mg-325 mg tablet (Percocet) 1 tab PO Q6H PRN pain 3 days #12 tabs 06/08/23 [Rx Last Taken Unknown] Allergy/AdvReac Type Severity Reaction Status Date / Time No Known Allergies Allergy Verified 06/07/23 20:26 Surgical History History of facial surgery History of wisdom tooth extraction, class IV edentulism Social History (Updated 09/13/18 @ 13:[address] Mavis Landaverde, DO) Smoking Status: Current every day smoker tobacco type: cigarettes second hand exposure: Yes alcohol intake: former year quit: 2010 ROS ROS ED Constitutional Constitutional ED: Denies chills or fever(s) ENT ENT ED: Denies sore throat Cardiovascular Cardiovascular: Denies chest pain Respiratory/Chest Respiratory/Chest: Denies cough or dyspnea Gastrointestinal Gastrointestinal: Denies abdominal pain, diarrhea, nausea or vomiting Genitourinary Genitourinary ED: Denies dysuria Musculoskeletal Musculoskeletal: Reports other Details: positive right leg pain Integumentary Reports other Details: Positive redness right leg Neurologic Neurologic: Denies headache(s) Hematologic/Lymphatic Hematologic/Lymphatic: Denies easy bleeding or easy bruising EXAM Physical Exam Const Vital Signs: 06/07/23 20:24 06/07/23 22:01 06/07/23 22:01 Temperature 95.8 F L 98.5 F Temperature Source Temporal Oral Pulse Rate 82 85 Respiratory Rate 22 H 20 H Respiratory Effort Normal Respiratory Pattern Normal Blood Pressure 195/112 H 185/55 H Blood Pressure Mean 139 98 Pulse Ox 96 98 Oxygen Delivery Method Room Air Room Air Positive well nourished and well developed General Appearance ED: well developed HEENT HEENT Narrative: Normocephalic atraumatic Eyes PERRL and EOMs intact bilaterally General Eye ED: Negative for scleral icterus Neck supple Neck Narrative: No nuchal rigidity or meningeal signs noted Resp normal respiratory effort Resp Narrative: Breath sounds are diminished throughout with wheeze and rhonchi in the bilateral lower lobes consistent with history of COPD but no signs of distress Cardio regular rate and regular rhythm GI normal to inspection, nondistended, normoactive bowel sounds, non-tender, non-distended and no masses Auscultation: normoactive bowel sounds Palpation: soft Extremity Extremity Narrative: Right lower extremity is neurovascularly intact. There is asymmetric soft tissue swelling with erythema and warmth extends from the dorsum of the foot to just below the knee. No obvious abscess formation noted. No lymphangitic streaking Negative Homans' sign bilaterally Neuro oriented x3, CN's II-XII intact bilaterally and no sensory deficits noted Sensorium / Orientation: alert Motor Exam: strength 5/5 throughout Psych mental status grossly normal Skin Skin Narrative: Soft tissue changes to the right lower leg as documented above MDM MDM MDM Narrative Medical decision making narrative: Patient presented to the ER hypertensive but otherwise with stable vitals. He reported redness swelling and pain to the right leg with no trauma. He denies any recent travel or surgery or history of DVT but there is concern for a clot based on his presentation so a venous duplex was ordered. There is also concern that he has developed cellulitis versus osteomyelitis and is trying to progress his septicemia so basic blood work with blood cultures was obtained. Venous duplex revealed no acute clot. X-ray revealed no obvious signs of osteomyelitis. Work showed no leukocytosis or left shift or lactic acidosis. Patient's vitals remained stable. Therefore at this time as he does not have findings to suggest systemic infection he will be placed on antibiotics and will be discharged home while blood cultures are pending. History & Record Review Discussion w/independent historian: Patient Lab Data Attestation: I reviewed the patient's lab results. Labs: Laboratory Results - last 24 hr 06/07/23 22:45 WBC 8.3 RBC 4.77 Hgb 14.6 Hct 43.9 MCV 92.0 MCH 30.6 MCHC 33.3 RDW Std Deviation 43.3 RDW Coeff of Izzy 12.8 Plt Count 228 MPV 10.6 Immature Gran % (Auto) 0.200 Neut % (Auto) 59.2 Lymph % (Auto) 25.9 Whitman % (Auto) 11.6 H Eos % (Auto) 2.4 Baso % (Auto) 0.7 Absolute Neuts (auto) 4.9 Absolute Lymphs (auto) 2.15 Nucleated RBC % 0 Sodium 135 L Potassium 3.5 Chloride 102 Carbon Dioxide 27.0 Anion Gap 6 BUN 14 Creatinine 0.98 Estim Creat Clear Calc 87.10 Est GFR (MDRD) Af Amer 98 Est GFR (MDRD) Non-Af 81 BUN/Creatinine Ratio 14.3 Glucose 110 H Lactic Acid 1.0 Calcium 8.8 Radiography Diagnostic Testing: Clinical Impression(s) from Imaging Studies Foot X-Ray 06/07/23 22:20 IMPRESSION: Soft tissue swelling along the dorsum of the foot and ankle region. 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 No acute fracture or subluxation. No distinct bony lesion. Note to be made that osteomyelitis cannot be excluded based on negative plane film findings. If this represents a clinical concern, recommend follow-up with MRI or bone scan of the region of interest. Electronically Signed: Kaylene Mayer MD at 22:49 EST , Tibia/Fibula X-Ray 06/07/23 22:20 IMPRESSION: Diffuse soft tissue swelling as described with no acute fracture or subluxation. No distinct bony lesion seen. Note to be made that osteomyelitis cannot be excluded based on negative plane film findings. If this presents a persistent clinical concern, recommend dedicated bone scan or MRI of the region of interest. Electronically Signed: Kaylene Mayer MD at 22:50 EST , Venous Duplex 06/07/23 22:26 IMPRESSION: Normal venous Doppler ultrasound of the right lower extremity. Electronically Signed: Kaylene Mayer MD at 23:18 EST , Right foot x-ray as interpreted by the emergency medicine physician reveals soft tissue swelling with degenerative disease but no obvious signs of osteomyelitis Right tibia/fibula x-ray as interpreted by the emergency medicine physician also reveals soft tissue swelling with mild degeneration but no obvious signs of acute osteomyelitis Discharge Plan Triage Chief Complaint: Edema ED Provider: Christopher Andrade Dx/Rx/DC Orders Clinical Impression: Cellulitis of right leg, Hepatitis C, COPD (chronic obstructive pulmonary disease) Instructions: ED Cellulitis Prescriptions: New clindamycin HCl 300 mg capsule 300 mg PO 4X/DAY 10 Days Qty: 40 0RF oxycodone-acetaminophen [Percocet] 5-325 mg tablet 1 tab PO Q6H PRN (Reason: pain) 3 Days Qty: 12 0RF No Action omeprazole 40 mg capsule,delayed release(DR/EC) 40 mg PO DAILY albuterol sulfate [ProAir HFA] 90 mcg/actuation HFA aerosol inhaler 2 puff INHALATION Q4H PRN (Reason: COPD) tiotropium bromide [Spiriva Respimat] 2.5 mcg/actuation mist 2 puff INHALATION DAILY levothyroxine 125 mcg capsule 125 mcg capsule 125 mcg PO DAILY fluticasone furoate-vilanterol [Breo Ellipta] 100-25 mcg/dose blister with device 1 inh INHALATION DAILY fluticasone propionate 50 mcg/actuation spray,suspension 1 spray INTRANASAL DAILY trazodone 50 mg tablet 50 mg PO QHS PRN (Reason: Sleep) divalproex [Depakote] 500 mg tablet,delayed release (DR/EC) 500 mg PO QHS aspirin [Aspir-Low] 81 MG tablet,delayed release (DR/EC) 81 mg PO DAILY budesonide-formoterol [Symbicort] 1 INHALER inhaler 2 puff inhalation BID divalproex 500 MG tablet extended release 24 hr 500 mg PO DAILY gabapentin 100 MG capsule 100 mg PO BIDCM Primary Care Provider: Elis Neal NP Referrals: Elis Neal [employer], [employer] [Primary Care Provider] - Activity Restrictions/Additional Instructions: Your workup does not show blood clot or obvious signs of osteomyelitis/bone infection. Take the antibiotic to resolve the swelling and skin infection/cellulitis. If you have worsening of symptoms or any further concerns please return to the ER for repeat evaluation Disposition Disposition: Home, Self Care Discharge Date/Time: 06/08/23 01:50 Capacity Legal [employer] Reflex Medical hold order details:: IF a medical hold is selected below, a suggested order for a MEDICAL HOLD will reflex upon signing the document. Next of kin: [place] law dictates a PRIORITY LIST for identifying legal decision-maker/legal next of kin in the following order (LNOK): 1st: The patient?s legal guardian, if any 2nd: The patient's spouse (if status is questionable, consult Risk Management) 3rd: The patient?s adult child(verenice) (majority, if multiple children) 4th: The patient?s parents 5th: The patient?s adult siblings (majority, if multiple children siblings)
[2023-06-08 00:57] LABS: Procalcitonin < 0.04 ng/mL (0.00-0.09)
[2023-06-08] MEDS: Oxycodone/Apap 5/325 Tablet PO (01:45)
== END 2023-06-08 01:50 | disposition home or self-care (01) ==
PROVIDERS: Emergency Provider Emergency Medicine; PCP Nurse Practitioner; Referring Provider Emergency Medicine; Visit Provider Emergency Medicine
DX: L03.115 Cellulitis of right lower limb (principal); J44.9 Chronic obstructive pulmonary disease, unspecified; B19.20 Unspecified viral hepatitis C without hepatic coma; E06.3 Autoimmune thyroiditis; F17.210 Nicotine dependence, cigarettes, uncomplicated; Z79.82 Long term (current) use of aspirin; Z79.899 Other long term (current) drug therapy
CPT/HCPCS: 73590; 73630; 80048; 83605; 84145; 85025; 87040; 93971; 96365; 96366; 99284; J7040; J7050; A4216

== ENCOUNTER 2023-12-02 17:53 | Emergency (ER) | payer OTHER, MEDICARE, SELFPAY ==
[2023-12-02 17:54] VITALS: BP 172/106; PULSE 78; RESP 16; TEMP 36.4; O2SAT 95; BMI 29.4
[2023-12-02 17:57] VITALS: BP 145/78; PULSE 72; RESP 18; O2SAT 99
--- NOTE | 2023-12-02 18:56 | EX.ED.GENINJ ---
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 He has lacerations to the right index and middle fingers. He denies weakness or paresthesias. He is right-hand dominant. Tetanus is up-to-date within the last 5 years. [facility] <PEREZ Alberto - Last Filed: 12/02/23 21:38> [facility] Medical History (Updated 12/02/23 @ 20:50 by PEREZ Alberto) Chest pain Suspected sleep apnea Carpal tunnel syndrome on both sides GERD (gastroesophageal reflux disease) COPD (chronic obstructive pulmonary disease) Tobacco abuse Hypothyroid Johnathan's disease Hepatitis C Home Medications ?Medication ?Instructions ?Recorded ?Last Taken ?Type albuterol sulfate 90 mcg/actuation 2 puff inhalation Q4H PRN COPD 01/13/18 09/21/18 History aerosol inhaler (ProAir HFA) fluticasone furoate 100 1 inh inhalation DAILY COPD 01/13/18 Unknown History mcg-vilanterol 25 mcg/dose inhalation powder (Breo Ellipta) fluticasone propionate 50 1 spray intranasal DAILY BREATHING 01/13/18 Unknown History mcg/actuation nasal spray,suspension levothyroxine 125 mcg capsule 125 mcg PO DAILY THYROID 01/13/18 09/21/18 History omeprazole 40 mg capsule,delayed 40 mg PO DAILY GERD 01/13/18 09/21/18 History release tiotropium bromide 2.5 2 puff inhalation DAILY COPD 01/13/18 Unknown History mcg/actuation mist for inhalation (Spiriva Respimat) trazodone 50 mg tablet 50 mg PO QHS PRN Sleep 07/18/18 Unknown History divalproex 500 mg tablet,delayed 500 mg PO QHS 09/06/18 Unknown History release (Depakote) aspirin 81 mg tablet,delayed 81 mg PO DAILY HEART HEALTH 09/16/18 09/21/18 History release (Aspir-Low) budesonide-formoterol HFA 160 2 puff inhalation BID COPD 09/16/18 Unknown History mcg-4.5 mcg/actuation aerosol inhaler (Symbicort) divalproex 500 mg tablet,extended 500 mg PO DAILY 02/04/19 Unknown History release 24 hr gabapentin 100 mg capsule 100 mg PO BIDCM 08/14/20 Unknown History clindamycin HCl 300 mg capsule 300 mg PO 4X/DAY 10 days #40 caps 06/08/23 Unknown Rx oxycodone-acetaminophen 5 mg-325 1 tab PO Q6H PRN pain 3 days #12 06/08/23 Unknown Rx mg tablet (Percocet) tabs hydrocodone-acetaminophen 5-325mg 1 tab PO Q6H PRN PRN Pain 3 days 12/02/23 Unknown Rx 5mg-325mg #12 TABLETS Allergy/AdvReac Type Severity Reaction Status Date / Time No Known Allergies Allergy Verified 12/02/23 17:54 Surgical History History of wisdom tooth extraction, class IV edentulism History of facial surgery Social History (Updated 09/13/18 @ 13:[address] Mavis Landaverde, DO) Smoking Status: Current every day smoker tobacco type: cigarettes and cigars second hand exposure: Yes alcohol intake: former year quit: 2010 ROS <PEREZ Alberto - Last Filed: 12/02/23 21:38> ROS ED ROS Narrative Neuro: Negative for motor/sensory dysfunction. Skin: Positive for lacerations. Musc: Positive for finger pain, trauma. EXAM <PEREZ Alberto - Last Filed: 12/02/23 21:38> Physical Exam Narrative Exam Narrative: CONST: Patient sitting in no acute distress. EYES: Normal inspection. EXT: Right index finger: distal phalanx skin and complete nail avulsion without visible bone. Right middle finger: Macerated flap type laceration over right DIP joint and distal phalanx area. Nail is in place with a horizontal linear laceration across the distal nail tip. Capillary refill intact. 1 cm skin laceration over the distal fingertip. Right upper extremity has chronic arthritis but he has full range of motion of wrist MCP PIP and DIP joints. Normal motor and sensory function in median radial and ulnar distributions. 2+ radial pulse. NEURO: Alert and answering questions appropriately. PSYCH: Normal affect. Const Vital Signs: 12/02/23 17:54 12/02/23 17:57 12/02/23 20:52 Temperature 97.5 F L Temperature Source Temporal Pulse Rate 78 72 62 Respiratory Rate 16 18 18 Blood Pressure 172/106 H 145/78 H 161/96 H Blood Pressure Mean 128 100 117 Pulse Ox 95 99 96 Oxygen Delivery Method Room Air Room Air Room Air 12/02/23 21:38 Temperature 98.4 F Temperature Source Pulse Rate 63 Respiratory Rate 18 Blood Pressure 156/92 H Blood Pressure Mean 113 Pulse Ox 96 Oxygen Delivery Method <Dr. Cristóbal العراقي DO - Last Filed: 12/02/23 22:00> Physical Exam Const Vital Signs: 12/02/23 17:54 12/02/23 17:57 12/02/23 20:52 Temperature 97.5 F L Temperature Source Temporal Pulse Rate 78 72 62 Respiratory Rate 16 18 18 Blood Pressure 172/106 H 145/78 H 161/96 H Blood Pressure Mean 128 100 117 Pulse Ox 95 99 96 Oxygen Delivery Method Room Air Room Air Room Air 12/02/23 21:38 Temperature 98.4 F Temperature Source Pulse Rate 63 Respiratory Rate 18 Blood Pressure 156/92 H Blood Pressure Mean 113 Pulse Ox 96 Oxygen Delivery Method PROC <PEREZ Alberto - Last Filed: 12/02/23 21:38> Procedures Lacerations right middle finger tip: Length: 0.39 in Depth: Skin Shape: Linear Prep: Sterile Conditions and Shure-Clens Irrigated (ml): 100 Number of Sutures/[place]: 2 Suture Information: Vicryl and 5-0 Comment: I removed the distal sliver of middle fingernail. There is a small laceration on the tip of the finger pad which I closed with 2 simple interrupted sutures of 5-0 Vicryl to achieve hemostasis. [facility] <PEREZ Alberto - Last Filed: 12/02/23 21:38> [facility] Narrative Medical decision making narrative: Patient sustained a workplace injury with lacerations to the right index and middle fingers. Initially hand was soaked and saline and cleansing solution. The right index finger has a skin incomplete nail avulsion to the level of the subcutaneous tissue. The middle finger has a macerated laceration over the distal phalanx that is not amenable to repair. There is a linear laceration through the distal tip of the nail with the distal sliver still attached. Extremity is neurovascularly intact and there is no visible bone. X-ray shows no acute fracture. It noted a radial density object over the distal third finger; however after I digital block both fingers and thoroughly irrigated and explored the area I do not see any evidence of foreign body. I removed the distal sliver of the middle finger nail in place to 4-0 Vicryl sutures over the small laceration. Wounds were dressed with Xeroform and a bulky bandage. I prescribed Percocet for pain and work restrictions with no use of his right hand so he will be unable to work until he follows up with orthopedics. I provided contact information for Dr. Washington. I discussed with care at home and he was discharged in stable condition. Radiography Diagnostic Testing: Clinical Impression(s) from Imaging Studies Hand X-Ray 12/02/23 19:00 IMPRESSION: 1. Soft tissue defect over the distal third finger with soft tissue swelling. There is a small radiodensity present which may represent a small radiopaque foreign body or bony avulsion. No obvious fractures are identified. 2. Degenerative changes with narrowing of the metacarpophalangeal joints. Electronically Signed: Иван Sampson MD at 19:48 EDT , ED attending interpretation of right hand x-ray shows no acute fracture or dislocation. <Dr. Cristóbal العراقي, DO - Last Filed: 12/02/23 22:00> [facility] Narrative Medical decision making narrative: Patient sustained a workplace injury with lacerations to the right index and middle fingers. Initially hand was soaked and saline and cleansing solution. The right index finger has a skin incomplete nail avulsion to the level of the subcutaneous tissue. The middle finger has a macerated laceration over the distal phalanx that is not amenable to repair. There is a linear laceration through the distal tip of the nail with the distal sliver still attached. Extremity is neurovascularly intact and there is no visible bone. X-ray shows no acute fracture. It noted a radial density object over the distal third finger; however after I digital block both fingers and thoroughly irrigated and explored the area I do not see any evidence of foreign body. I removed the distal sliver of the middle finger nail in place to 4-0 Vicryl sutures over the small laceration. Wounds were dressed with Xeroform and a bulky bandage. I prescribed Percocet for pain and work restrictions with no use of his right hand so he will be unable to work until he follows up with orthopedics. I provided contact information for Dr. Washington. I discussed with care at home and he was discharged in stable condition. Addendum Patient was seen and examined with physician academic support assistant Nicole All components of the history and physical confirmed and agreed. History of present illness and physical exam: Patient is a 60-year-old male who presents to the emergency department with a chief complaint of right hand lacerations. 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 He states that he is right-hand dominant he states that his tetanus shot is up-to-date within the last 5 years. Physical exam General: Patient lying in bed rest comfortably did not appear to be in acute distress Head: Atraumatic, normocephalic Neck: Soft, supple, trachea midline Extremities: Radial pulse +2/4 in the bilateral extremities, patient's right hand second and third finger had avulsion injuries there are no bone exposed. Neurological: Patient is following commands that he is at [facility] years 2023 Patient's x-ray showed soft tissue defect over the distal third finger and soft tissue swelling this small radiodensity present which may be small radiopaque foreign body or bony avulsion no obvious fractures are identified. Degenerative changes with narrowing of the MCP joints noted. Plan: -Patient's wounds were copiously irrigated -See the physician academic support assistant procedure note -Patient was given follow-up with hand surgery -He is encouraged to continue to keep the area dry and clean -He was encouraged to do Dreft soaks at home 2-3 times a day and then ensure the area is dry prior to applying new clean dressings -Patient was given strict return precautions encouraged return with worsening or concerns Final impression: Second and third finger avulsion injury Disposition: Patient will be home in stable condition Supervising attending attestation: Cristóbal العراقي D.O. Radiography Diagnostic Testing: Clinical Impression(s) from Imaging Studies Hand X-Ray 12/02/23 19:00 IMPRESSION: 1. Soft tissue defect over the distal third finger with soft tissue swelling. There is a small radiodensity present which may represent a small radiopaque foreign body or bony avulsion. No obvious fractures are identified. 2. Degenerative changes with narrowing of the metacarpophalangeal joints. Electronically Signed: Иван Sampson MD at 19:48 EDT , Discharge Plan Triage Chief Complaint: Laceration ED Midlevel Provider: Nicole Loredo ED Provider: Cristóbal العراقي Dx/Rx/DC Orders Clinical Impression: Avulsion of nail of right index finger, Laceration of right middle finger Instructions: ED Detached Fingernail or Toenail, ED Skin Tear (Skin Avulsion) Prescriptions: New hydrocodone-acetaminophen 5-325 mg tablet 1 tab PO Q6H PRN PRN (Reason: Pain) 3 Days Qty: 12 0RF No Action omeprazole 40 mg capsule,delayed release(DR/EC) 40 mg PO DAILY albuterol sulfate [ProAir HFA] 90 mcg/actuation HFA aerosol inhaler 2 puff INHALATION Q4H PRN (Reason: COPD) tiotropium bromide [Spiriva Respimat] 2.5 mcg/actuation mist 2 puff INHALATION DAILY levothyroxine 125 mcg capsule 125 mcg PO DAILY fluticasone furoate-vilanterol [Breo Ellipta] 100-25 mcg/dose blister with device 1 inh INHALATION DAILY fluticasone propionate 50 mcg/actuation spray,suspension 1 spray INTRANASAL DAILY trazodone 50 mg tablet 50 mg PO QHS PRN (Reason: Sleep) divalproex [Depakote] 500 mg tablet,delayed release (DR/EC) 500 mg PO QHS aspirin [Aspir-Low] 81 MG tablet,delayed release (DR/EC) 81 mg PO DAILY budesonide-formoterol [Symbicort] 1 INHALER inhaler 2 puff inhalation BID divalproex 500 MG tablet extended release 24 hr 500 mg PO DAILY gabapentin 100 MG capsule 100 mg PO BIDCM clindamycin HCl 300 mg capsule 300 mg PO 4X/DAY 10 Days Qty: 40 0RF oxycodone-acetaminophen [Percocet] 5-325 mg tablet 1 tab PO Q6H PRN (Reason: pain) 3 Days Qty: 12 0RF Primary Care Provider: Elis Neal NP Referrals: Hu Washington DO [Med Staff - Active Staff] - Elis Neal PHARMACY TECHNICIAN ASSISTANT, PHARMACY TECHNICIAN ASSISTANT-C [Primary Care Provider] - Activity Restrictions/Additional Instructions: Soak in soapy water several times per day then bandage with a bottom layer of wet gauze and then dry wrap such as gauze tube roll or Coban. Call the orthopedic doctor for an appointment to be seen tomorrow or early next week. Print Language: Maltese Disposition Disposition: Home, Self Care Discharge Date/Time: 12/02/23 21:46
--- NOTE | 2023-12-02 19:00 | RAD_ITS ---
EXAM: XR RIGHT HAND COMPLETE, 3 OR MORE VIEWS CLINICAL INDICATION: laceration TECHNIQUE: Frontal, lateral and oblique views of the right hand. COMPARISON: 06/29/2017 FINDINGS: BONES/JOINTS: There is a small radiopaque density posterior to the distal aspect of the middle third phalanx possibly representing a tiny bony fragment. There are degenerative changes with narrowing of the metacarpal phalangeal joints. No acute fracture. No subluxation. Normal alignment. SOFT TISSUES: There is soft tissue swelling over the distal aspect of the third finger. Scratch that. No radiopaque foreign body. RAD/Hand Min 3 Views IMPRESSION: 1. Soft tissue defect over the distal third finger with soft tissue swelling. There is a small radiodensity present which may represent a small radiopaque foreign body or bony avulsion. No obvious fractures are identified. 2. Degenerative changes with narrowing of the metacarpophalangeal joints. Electronically Signed: Иван Sampson MD at 19:48 EDT ,
[2023-12-02] MEDS: HYDROcodone Bitartrate/Apap 5/325 Tablet PO (19:03)
[2023-12-02] MEDS: Lidocaine 1% (20 ml mdv) 20 ML Vial INFILT (19:03)
[2023-12-02 20:52] VITALS: BP 161/96; PULSE 62; RESP 18; O2SAT 96
[2023-12-02 21:38] VITALS: BP 156/92; PULSE 63; RESP 18; TEMP 36.9; O2SAT 96
--- NOTE | 2023-12-02 21:39 | ED.RN ---
SPOKE WITH [employer] [employer], NO THE PATIENT DOES NOT NEED A DRUG SCREEN. I WAS INFORMED HE WAS THE PATIENTS BOSS.
== END 2023-12-02 21:46 | disposition home or self-care (01) ==
PROVIDERS: Emergency Provider Emergency Medicine; PCP Nurse Practitioner; Visit Provider Emergency Medicine
DX: S61.310A Laceration without foreign body of right index finger with damage to nail, initial encounter (principal); W26.8XXA Contact with other sharp object(s), not elsewhere classified, initial encounter; Y93.89 Activity, other specified; Y99.0 Civilian activity done for income or pay; F17.210 Nicotine dependence, cigarettes, uncomplicated; F17.290 Nicotine dependence, other tobacco product, uncomplicated
CPT/HCPCS: 12001; 73130; 99283

== ENCOUNTER 2024-12-12 16:47 | Emergency (ER) | payer MEDICARE, MEDICAID, SELFPAY ==
[2024-12-12 16:48] VITALS: BP 156/101; PULSE 65; RESP 18; TEMP 36.4; O2SAT 97; BMI 28.9
--- NOTE | 2024-12-12 16:51 | CT_ITS ---
PROCEDURE: BRAIN/HEAD WITHOUT CONTRAST 12/12/2024 REASON FOR EXAM: TRAUMA TECHNIQUE: BRAIN/HEAD WITHOUT CONTRAST Coronal and Sagittal reconstruction series were provided. One or more dose reduction techniques were used (e.g., Automated exposure control, adjustment of the mA and/or kV according to patient size, use of iterative reconstruction technique. RADIATION DOSE SUMMARY: DLP: 1352 mGycm COMPARISON: None FINDINGS: There is no acute infarct, intracranial hemorrhage, or mass effect. There is no hydrocephalus or significant midline shift. No acute, depressed calvarial fractures. No large scalp hematomas. CT/Brain/Head without Contrast IMPRESSION: No acute intracranial process. Reading Location: [id number]
--- NOTE | 2024-12-12 17:09 | CT_ITS ---
PROCEDURE: SPINE CERVICAL WITHOUT CONTRAS 12/12/2024 REASON FOR EXAM: HEAD TRAUMA WITH NECK PAIN TECHNIQUE: SPINE CERVICAL WITHOUT CONTRAS Coronal and Sagittal reconstruction series were provided. One or more dose reduction techniques were used (e.g., Automated exposure control, adjustment of the mA and/or kV according to patient size, use of iterative reconstruction technique. RADIATION DOSE SUMMARY: CTDlvol: 24.74 mGy DLP: 505.12 mGycm COMPARISON: None. FINDINGS: No acute fracture or subluxation. Straightening of the cervical lordosis may be positional and/or degenerative in nature. Moderate multilevel spondylotic changes with varying degrees of disc space narrowing, endplate sclerosis, multiple small degenerative Schmorl's nodes and/or subchondral cysts, anterior osteophytosis, uncovertebral spurring and hypertrophic facet arthropathy. Small dorsal disc osteophyte complex formations at multiple levels from C3-C7. Multilevel bilateral mild-moderate osseous neural foraminal narrowing. No prevertebral soft tissue swelling. Atherosclerotic calcification at the carotid artery bifurcations. Mild subpleural emphysematous changes in the imaged lung apices. CT/Spine Cervical without Contras IMPRESSION: No acute cervical spine fracture or subluxation. Moderate multilevel spondylotic changes, as described. Reading Location: [id number]
--- NOTE | 2024-12-12 17:10 | EDS_ITS ---
HPI History of Present Illness Chief Complaint: Head Injury Informant: patient Onset/Context/Timing Onset: Days Mechanism/Context: Blunt Injury and Fall Quality of Pain: Sharp Current Severity: Moderate Maximum Severity: Moderate Associated Symptoms Associated Symptoms: Positive for Loss of consciousness (1 to 2 minutes.); Negative for Parasthesias, Weakness, Loss of function or Inability to ambulate Narrative Narrative: 69-year-old male that is with a history of COPD was working on a trailer hitch the other day and it pushed him backwards and he fell striking his head on the asphalt. Reportedly had loss conscious for maybe as much as 2 minutes. Friend at the bedside said he was quite confused. Now has complained headache and nausea. He is on no blood thinners. He also has some neck pain. He has not had any significant head injury or brain surgery. He denies any other complaints. Prior similar symptoms: No Recent Illness/Hospitalization: No [facility] Medical History Chest pain Suspected sleep apnea Carpal tunnel syndrome on both sides GERD (gastroesophageal reflux disease) COPD (chronic obstructive pulmonary disease) Tobacco abuse Hypothyroid Johnathan's disease Hepatitis C Home Medications ?Medication ?Instructions ?Recorded ?Last Taken ?Type albuterol sulfate 90 mcg/actuation 2 puff inhalation Q 4H PRN COPD 01/13/18 09/21/18 History aerosol inhaler (ProAir HFA) fluticasone furoate 100 1 inh inhalation DAILY COPD 01/13/18 Unknown History mcg-vilanterol 25 mcg/dose inhalation powder (Breo Ellipta) fluticasone propionate 50 1 spray intranasal DAILY ARIANNA ATHING 01/13/18 Unknown H istory mcg/actuation nasal spray,suspension levothyroxine 125 mcg capsule 125 mcg PO DAILY THYROID 01/13/18 09/21/18 History omeprazole 40 mg capsule,delayed 40 mg PO DAILY GERD 0 01/13/18 09/21/18 History release tiotropium bromide 2.5 2 puff inhalation DAILY COPD 01/13/18 Unknown History mcg/actuation mist for inhalation (Spiriva Respimat) trazodone 50 mg tablet 50 mg PO QHS PRN Sleep 07/18 Unknown History divalproex 500 mg tablet,delayed 500 mg PO QHS 9 Unknown History release (Depakote) aspirin 81 mg tablet,delayed 81 mg PO DAILY HEART HEAL TH 09/16/18 09/21/18 History release (Aspir-Low) budesonide-formoterol HFA 160 2 puff inhalation BID CO PD 09/16/18 Unknown History mcg-4.5 mcg/actuation aerosol inhaler (Symbicort) divalproex 500 mg tablet,extended 500 mg PO DAILY 01/22 09/09 Unknown History release 24 hr gabapentin 100 mg capsule 100 mg PO BIDCM 08/14/20 Unk nown History clindamycin HCl 300 mg capsule 300 mg PO 4X/DAY 10 day s #40 caps 06/08/23 Unknown Rx oxycodone-acetaminophen 5 mg-325 1 tab PO Q6H PRN pain 3 days #12 06/08/23 Unknown Rx mg tablet (Percocet) tabs hydrocodone-acetaminophen 5-325mg 1 tab PO Q6H PRN PRN Pain 3 days 12/02/23 Unknown Rx 5mg-325mg #12 TABLETS Allergy/AdvReac Type Severity Reaction Status Date / Time No Known Allergies Allergy Verified 12/12/24 16:49 Surgical History History of wisdom tooth extraction, class IV edentulism History of facial surgery Social History Smoking Status: Current every day smoker tobacco type: cigarettes and cigars second hand exposure: Yes alcohol intake: former year quit: 2010 ROS ROS ED ROS Narrative Headache post trauma. Nausea. Constitutional Constitutional ED: Denies chills or fever(s) Eyes Eyes: Denies blurry vision ENT ENT ED: Denies ear pain Cardiovascular Cardiovascular: Denies chest pain Respiratory/Chest Respiratory/Chest: Denies cough Gastrointestinal Gastrointestinal: Reports nausea; Denies abdominal pain, constipation, diarrhea, melena or vomiting Genitourinary Genitourinary ED: Denies dysuria or hematuria Musculoskeletal Musculoskeletal: Denies arthralgias Integumentary Denies abscess Neurologic Neurologic: Reports headache(s) Psychiatric Psychiatric: Denies anxiety Endocrine Endocrinology: Denies cold intolerance Hematologic/Lymphatic Hematologic/Lymphatic: Denies easy bleeding, easy bruising or lymphadenopathy Allergic/Immunologic Allergic/Immunologic ED: Denies mouth swelling, tongue swelling or urticaria EXAM Physical Exam Narrative Exam Narrative: Sick 9-year-old male sitting upright in bed. Vital signs stable afebrile. Friend at bedside. HEENT exam pupils round react to light. Motions are intact. No facial trauma. Contusion left posterior scalp. No obvious laceration that I can see. No bleeding. Diffuse tenderness over the entire back of his neck and paracervical soft tissue. Trachea midline. Back nontender. Lungs clear equal and symmetrical bilaterally. Heart regular rhythm rate about 65 no murmur. Chest wall ribs are nontender. Abdomen soft nontender. Pelvic girdle intact. Moving all 4 extremities. Normal strength. Normal range of motion. No deformity. Nontender. Neurologically is awake alert. Answer questions following commands. GCS 15. Const Vital Signs: 12/12/24 16:48 12/12/24 17:37 12/12/24 17:47 Temperature 97.6 F L Temperature Source Oral Pulse Rate 65 87 Respiratory Rate 18 17 Respiratory Effort Normal Blood Pressure 156/101 H 158/94 H Blood Pressure Mean 119 115 Pulse Ox 97 94 Oxygen Delivery Method Room Air Room Air 12/12/24 18:00 Temperature Temperature Source Pulse Rate 82 Respiratory Rate 18 Respiratory Effort Blood Pressure Blood Pressure Mean Pulse Ox Oxygen Delivery Method Positive well nourished and well developed; Negative for obese, cachectic, contractures or unkempt General Appearance ED: well developed and NAD; Negative for unkempt, cachectic or contractures Nutritional Appearance: Negative for cachectic or obese HEENT HEENT Narrative: Left posterior scalp contusion. Tenderness. trauma and tenderness; Negative for atraumatic Eyes PERRL and EOMs intact bilaterally Neck General: tenderness Chest Wall inspection of chest normal and palpation of chest normal Resp normal respiratory effort and clear to auscultation bilaterally Cardio regular rhythm, S1 normal heart sound, S2 normal heart sound and no murmurs GI normal to inspection, nondistended, normoactive bowel sounds, non-tender, non-distended and no masses Auscultation: normoactive bowel sounds Palpation: soft; Negative for tender, guarding or rebound tenderness present Back/Spine normal to inspection and no thoracic nor lumbar tenderness General Back: Negative for CVA tenderness Thoracic Spine / Upper Back: Negative for thoracic spinal tenderness Extremity normal to inspection and full ROM General Extremety ED: Negative for deformity, edema or tenderness General Extremity: Negative for deformity or edema Neuro oriented x3, CN's II-XII intact bilaterally, moves all extremities, no focal motor deficits and no sensory deficits noted [place] Coma Scale: document GCS findings Spontaneous Obeys Commands Oriented 15 Sensorium / Orientation: alert, oriented to person, oriented to place and oriented to time Motor Exam: strength 5/5 throughout Psych mental status grossly normal and thought process normal Appearance: Negative for unkempt Skin no rashes or lesions noted, no wounds, skin turgor normal and no jaundice Rashes: No rashes noted Trauma: Negative for abrasion Wounds: Negative for wounds noted MDM MDM MDM Narrative Medical decision making narrative: 69-year-old male with history of COPD closed head injury 2 days ago. With loss of consciousness has not been seen until today. He has a headache and nausea. CAT scan of his head and C-spine to be obtained. Repeat exam patient is doing well at 6:40 PM. I went over his CAT scan results. He is comfortable being discharged home. He is feeling somewhat better after the Zofran and Tylenol. He will be written for Zofran for home. We discussed concussion. History & Record Review Discussion w/independent historian: Patient and Friend Radiography Diagnostic Testing: Clinical Impression(s) from Imaging Studies Brain CT 12/12/24 16:51 IMPRESSION: No acute intracranial process. Reading Location: [facility] Cervical Spine CT 12/12/24 17:09 IMPRESSION: No acute cervical spine fracture or subluxation. Moderate multilevel spondylotic changes, as described. Reading Location: [facility] Discharge Plan Triage Chief Complaint: Head Injury ED Provider: Aristeo Melendez Dx/Rx/DC Orders Prescriptions: No Action omeprazole 40 mg capsule,delayed release(DR/EC) 40 mg PO DAILY albuterol sulfate [ProAir HFA] 90 mcg/actuation HFA aerosol inhaler 2 puff INHALATION Q4H PRN (Reason: COPD) tiotropium bromide [Spiriva Respimat] 2.5 mcg/actuation mist 2 puff INHALATION DAILY levothyroxine 125 mcg capsule 125 mcg PO DAILY fluticasone furoate-vilanterol [Breo Ellipta] 100-25 mcg/dose blister with device 1 inh INHALATION DAILY fluticasone propionate 50 mcg/actuation spray,suspension 1 spray INTRANASAL DAILY trazodone 50 mg tablet 50 mg PO QHS PRN (Reason: Sleep) divalproex [Depakote] 500 mg tablet,delayed release (DR/EC) 500 mg PO QHS aspirin [Aspir-Low] 81 MG tablet,delayed release (DR/EC) 81 mg PO DAILY budesonide-formoterol [Symbicort] 1 INHALER inhaler 2 puff inhalation BID divalproex 500 MG tablet extended release 24 hr 500 mg PO DAILY gabapentin 100 MG capsule 100 mg PO BIDCM clindamycin HCl 300 mg capsule 300 mg PO 4X/DAY 10 Days Qty: 40 0RF oxycodone-acetaminophen [Percocet] 5-325 mg tablet 1 tab PO Q6H PRN (Reason: pain) 3 Days Qty: 12 0RF hydrocodone-acetaminophen 5-325 mg tablet 1 tab PO Q6H PRN PRN (Reason: Pain) 3 Days Qty: 12 0RF Primary Care Provider: Elis Neal NP Referrals: Elis Neal NP, [employer] [Primary Care Provider] - Print Language: Italian
[2024-12-12 17:47] VITALS: BP 158/94; PULSE 87; RESP 17; O2SAT 94
[2024-12-12 18:00] VITALS: PULSE 82; RESP 18
[2024-12-12 18:46] VITALS: BP 158/94; PULSE 82; RESP 18; TEMP 36.4; O2SAT 94
== END 2024-12-12 18:47 | disposition home or self-care (01) ==
PROVIDERS: Emergency Provider Emergency Medicine; PCP Nurse Practitioner; Visit Provider Emergency Medicine
DX: R51.9 Headache, unspecified (principal); J44.9 Chronic obstructive pulmonary disease, unspecified; R11.0 Nausea; F17.210 Nicotine dependence, cigarettes, uncomplicated; F17.290 Nicotine dependence, other tobacco product, uncomplicated; Z79.82 Long term (current) use of aspirin; Z79.51 Long term (current) use of inhaled steroids
CPT/HCPCS: 70450; 72125; 99282